=== PATIENT | male | born 1950 | race Caucasian/White ===

== ENCOUNTER 2017-05-04 09:13 | Inpatient (IN) ==
--- NOTE | 2017-05-04 09:36 | Emergency Department Note ---
Disposition Clinical Impression: Elevated troponin CKD (chronic kidney disease) Qualifiers: Chronic kidney disease stage: stage 3 (moderate) Qualified Code(s): N18.3 - Chronic kidney disease, stage 3 (moderate) CHF (congestive heart failure) Qualifiers: Congestive heart failure type: unspecified congestive heart failure type Congestive heart failure chronicity: acute on chronic Qualified Code(s): I50.9 - Heart failure, unspecified HTN (hypertension) Qualifiers: Hypertension type: essential hypertension Qualified Code(s): I10 - Essential ( primary) hypertension Disposition: Admitted As Inpatient Condition: Fair General Adult HPI - General Chief complaint: ED Shortness of Breath/Dyspnea Stated complaint: Back Pain/SOB Time Seen by Provider: 05/04/17 09:21 Source: patient Limitations: no limitations Nursing Notes Reviewed: Yes Vital Signs Reviewed: Yes - History of Present Illness HPI Narrative: 66-year-old male presents to the ED complaining of lower back pain and shortness of breath. He states the back pain started this morning all of a sudden. He has a history of COPD patient still smokes 2 packs cigarettes a day. He says he is not short of breath at this moment but was earlier. The oxygen by EMS to breathe a lot better. He is not on home oxygen at this time. He states the back pain as sharp, nonradiating, 7 out of 10 and he has not taken anything for the pain yet. He said he was not doing any heavy lifting, recent falls, or any other trauma. Family states that they believe his pain is due to hip arthritis that is been radiating in the back. He states that he has a hard time moving his legs and has have helped lifting his legs and the car. They also state that the last couple days he has had increase in lower limb swelling. They state that this is new for him. He is complaining of no chest pain, shortness of breath, abdominal pain or headache at this time. Also has history of hepatitis C. Pain Scale: 10 - Related Data Home Medications Medication Instructions Recorded Confirmed No Known Home Drugs 05/04/17 05/04/17 Allergies Allergy/AdvReac Type Severity Reaction Status Date / Time No Known Allergies Allergy Verified 05/04/17 09:14 All systems ED: reviewed and negative except as stated. Constitutional: Denies: fever, chills, weakness, weight change Eyes: Denies: eye pain, eye discharge, vision change Cardiovascular: Denies: chest pain, palpitations, dyspnea on exertion, edema, syncope Respiratory: Reports: dyspnea (Original complaint by EMS but not currently having it now.). Denies: cough, wheezes, hemoptysis, stridor Gastrointestinal: Denies: abdominal pain, nausea, vomiting, diarrhea, constipation, hematemesis, melena, hematochezia Genitourinary: Denies: urgency, dysuria, frequency, hematuria Musculoskeletal: Reports: back pain (Lower). Denies: neck pain, arthralgia, myalgia Integumentary: Denies: rash, abrasion, lesions Neurological: Denies: headache, weakness, numbness, paresthesias, confusion, abnormal gait, vertigo Endocrine: Denies: fatigue Hematological/Lymphatic: Denies: easy bleeding, easy bruising Past Medical History - Past Medical History Attestation: Yes The following information was validated with the patient. Medical history: Reports: COPD, coronary artery disease Psychiatric history: Reports: no psych history - Social History Smoking Status: Current every day smoker Smokeless Tobacco Status: No Alcohol use: Reports: none Drug use: Reports: none Physical Exam - General Limitations: no limitations General appearance: alert, in no apparent distress - Head Head exam: atraumatic, normocephalic, normal inspection - Eye Eye exam: Present: normal appearance, PERRL, EOMI - ENT ENT exam: normal exam, normal oropharynx, mucous membranes moist - Neck Neck exam: Present: normal inspection, full ROM. Absent: tenderness - Chest Chest inspection: Present: normal inspection, symmetric chest wall rise - Respiratory Respiratory exam: Present: wheezes - Expanded Respiratory Exam Location: rales: Left, Right, Lower, rhonchi: Lower, Left, Right - Cardiovascular Cardiovascular exam: Present: regular rate, normal rhythm, normal heart sounds - Abdominal Exam Abdominal exam: Present: soft, Non-Tender. Absent: tenderness, distention, guarding, rebound, rigidity - Expanded Lower Extremity Exam Lower leg exam: Present: swelling - Back Exam Back exam: Present: normal inspection, full ROM. Absent: tenderness (No tenderness on palpation of lower back.), paraspinal tenderness - Neurological Exam Neurological exam: Present: alert, oriented X3 - Psychiatric Psychiatric exam: Present: flat affect - Skin Skin exam: Present: warm, dry, intact, normal color Course Course Narrative: 66-year-old male presented to the ED complaining of lower back pain and lower limb swelling. We will do a cardiac workup along with heart failure workup. We will order an EKG, chest x-ray, BNP, troponin, BMP, CBC, urinalysis. We will give him morphine for pain control and Zofran for nausea. Plan is a right now to find a source of his pain and cause of hypertension. - Reevaluation(s) Reevaluation #1: Reevaluated patient and he states he still has no chest pain. Critical lab came in with troponin of 0.96. And patient is still hypertensive at 180/90. Reevaluation #2: Patient still having no chest pain this time. Blood pressure machine shows 190/ 160 minute blood pressures being done at this time. Currently giving Lasix lower blood pressure. Reevaluation #3: He is having more pain at this time. We will give him 4 mg of morphine at this time. Vital Signs Temperature 98.8 F 05/04/17 09:16 Pulse Rate 100 05/04/17 09:16 Respiratory Rate 18 05/04/17 09:16 Blood Pressure 177/111 05/04/17 09:16 O2 Sat by Pulse Oximetry 94 05/04/17 09:16 Temperature 98.8 F 05/04/17 09:16 Pulse Rate 99 05/04/17 10:59 Respiratory Rate 18 05/04/17 10:59 Blood Pressure 190/160 05/04/17 10:59 O2 Sat by Pulse Oximetry 97 05/04/17 10:59 Oxygen Delivery Oxygen Delivery Nasal Cannula Medical Decision Making - [facility] Narrative Medical decision making narrative: 66-year-old male presents the ED complaining of lower back pain and lower limb swelling. He has a history of hep C, COPD. patient states he has no history of hypertension as this is new for him. These are his hypertension could be due to pain. We will give morphine for pain control. Patient states he is not short of breath at this time after he was given oxygen by EMS on the right in. We will continue to monitor that at this time. After talking with family it seems that his back pain could be due to a radiculopathy in the back or increased arthritis in his hips. I have low suspicion for a AAA. We will do a bedside ultrasound to see/measure the aorta. Her and do a cardiac workup to look for possible heart failure that could be causing his increased shortness of breath and swelling, as well as hypertension. 1011-bedside ultrasound done that showed no signs of enlarged aorta. This decreases our suspicion even more for AAA. 1035- spoke with patient about possibly being admitted he is okay with this plan. Repeated blood pressure which showed 190/160 while he was sitting down. He has noticed the blood pressure to be worse when he is sitting compared to when he is laying down. She was still complaining of no chest pain at this time Lasix is being given at this time to lower the blood pressure. Currently doing a manual blood pressure. Spoke with Dr. Robles bowel admitting he has for me to contact cardiology a call was made to cardiology at this time. He is going to come down and see the patient. 1117-spoke with Dr. Robles in the department. In he is wanting cardiology to look at them. He is okay to admit the patient. Manual blood pressure done was shown to be 170/100. We will give patient 5 mg of hydralazine to help lower that. 1134-spoke with Dr. Farnsworth in cardiology and he recommended that we do admit the patient do an echo and trending the enzymes this time as he is currently having no chest pain.. Dr. Robles and saw the patient and the admission is currently in progress at this time patient is being admitted right now. Chest X-Ray 05/04/17 09:27 IMPRESSION: Abnormal bilateral perihilar opacities extending into the lower lobes, left greater than right. The findings are suggestive of an atypical bronchopneumonia. Follow-up imaging is recommended after treatment to ensure resolution. D/ / 05/04/2017 11:07:15 Garrett Castro MD / beth Interpreting Provider: Garrett Castro MD - Medical Records Medical records reviewed: Yes I reviewed the patient's medical records. - Lab Data Lab results reviewed: Yes I reviewed the patient's lab results. Result diagrams: 05/04/17 10:00 05/04/17 10:00 - Radiology Data Radiology results reviewed: Yes I reviewed the patient's radiology results. - EKG Data EKG #1 EKG attestation: Yes I reviewed and interpreted this EKG. EKG results narrative: EKG done at 940 and reviewed by me. EKG shows a regular sinus rhythm with different P-wave morphologies. Along with PACs. There is signs of left heart strain. Rate of 90. R1 63 QRS 89 QTc 441 with normal axis. No acute ST changes. No T wave morphologies. No signs of block. No signs of WPW or [place]. There is no old old EKGs to compare with at this time. EKG shows normal: sinus rhythm Rate: normal Rhythm: NSR, PAC's [place]/QRS: normal When compared to previous EKG there are: previous EKG unavailable Interpretation: no acute changes Attestation Statement - Attestation Attestation: I examined this patient and my medical decision-making was reviewed with the Resident Physician. I agree with the documented findings, disposition and treatment plan as described except to the extent set forth below. 66-year-old male presents ED because of dyspnea and back pain. He has a long history of COPD and a remote history of coronary artery disease with prior stent placements. However, he cannot be more detailed about anything regarding the coronary stents. He presented to his primary care physician today due to the worsening dyspnea and need to get back on his psychiatric medications. At that time he was also complaining of low back pain with radiation to his right hip. He was found to be hypertensive and sensitivity. He denies any chest pain. He does report exertional dyspnea and mild orthopnea. No fevers or chills. No productive cough. No abdominal pain. No vomiting or diarrhea. Denies bowel or bladder bladder incontinence. No recent trauma Patient is talkative in no apparent distress. Very flat affect. Oropharynx is clear mucous members moist. Neck is supple. Trachea midline. No JVD. Chest with inspiratory rales in both bases. Cardiac exam distant heart tones, regular with occasional ectopy. Chest wall nontender. Abdomen soft and nontender. Flanks nontender. Lower back with some very mild right paraspinal muscular tenderness that partially reproduces his presenting pain. Lower extremities with 2+ pitting edema. EKG with LVH and repolarization abnormalities with T-wave inversions in lateral wall. Chest x-ray was normal cardiac silhouette but bilateral pulmonary edema. Troponin elevated to 0.96. BNP >5000 Blood pressure remained elevated. He was given IV morphine for his pain but blood pressure remained high. He was given IV Lasix along with 5 mg of IV hydralazine. Case was discussed with cardiology on-call and they will see him in consultation. He is admitted to the hospitalist in stable condition for further evaluation treatment. The high probability of a clinically significant, sudden or life threatening deterioration of the [Cardiopulmonary] system(s) required my full and direct attention, intervention and personal management. The aggregate critical care time was [30] minutes. This time is in addition to time spent performing reported procedures but includes the following: [x] Data Review and interpretation [x] Patient assessment and monitoring of vital signs [x] Documentation [x] Medication orders and management
[2017-05-04] MEDS ORDERED: Ondansetron 4 MG/2 ML VIAL IVP ONE (09:41)
[2017-05-04] MEDS ORDERED: *HR* Morphine 2 MG/ML SYRINGE IVP ONE ×2 (09:41→11:37)
[2017-05-04 10:06] LABS: Eosinophils % 0.2 %; Hemoglobin 12.8 g/dL (12.9-16.9); Immature Granulocytes % 0.3 % (0-4); Lymphocytes % 18.7 %; Mean Corpuscular HGB Conc 31.2 g/dL (31.6-35.5); Mean Corpuscular Hemoglobin 26.6 pg (28.0-33.3); Mean Corpuscular Volume 85.1 fL (83.0-100.0); Mean Platelet Volume 9.5 fL (9.4-12.4); Monocytes % 10.5 %; Platelet Count 293 K/mcL (140-400); Red Blood Count 4.82 M/mcL (4.19-5.50); Red Cell Distribution Width 16.9 % (11.5-14.5); Segmented Neutrophils % 69.9 %
[2017-05-04 10:07] LABS: Basophils # 0.1 K/mcL (0.0-0.2); Basophils % 0.4 %; Lymphocytes # 2.1 K/mcL (0.6-4.6); Monocytes # 1.2 K/mcL (0.0-1.3); Neutrophils # 7.8 K/mcL (1.6-8.9); Nucleated Red Blood Cells 0.2 /100 WBC (0)
[2017-05-04 10:19] LABS: Magnesium 2.1 mg/dL (1.6-2.6); Potassium 4.4 mEq/L (3.5-4.5)
[2017-05-04] MEDS ORDERED: Furosemide 40 MG/4 ML VIAL IVP ONE (10:29)
[2017-05-04] MEDS ORDERED: Aspirin 81 MG TAB.CHEW PO ONE (10:29)
[2017-05-04] MEDS ORDERED: *HR* Morphine 2 MG/ML SYRINGE IVP PRN (11:30)
[2017-05-04] MEDS ORDERED: Naloxone 0.4 MG/ML INJ IVP PRN (11:30)
[2017-05-04] MEDS ORDERED: Ondansetron 4 MG/2 ML VIAL IVP PRN (11:30)
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
[2017-05-04] MEDS ORDERED: Ipratropium/Albuterol Neb 3 ML IH PRN (12:08)
[2017-05-04 12:18] LABS: Bilirubin,Urine Negative (Negative); Blood,Urine Trace (Negative); Clarity,Urine Clear (Clear); Color,Urine Yellow (Yellow); Glucose,Urine (UA) Normal (Normal); Ketones,Urine Negative (Negative); Leukocyte Esterase,Urine Negative (Negative); Nitrite,Urine Negative (Negative); Protein,Urine 100 mg/dL (Neg-Trace); Specific Gravity,Urine 1.011 (1.010-1.025); Urobilinogen,Urine Normal (Normal)
[2017-05-04 12:21] LABS: Bacteria,Urine None Seen per hpf (None-Few); Hyaline Casts,Urine None Seen per lpf (None-Few); RBC,Urine 0-3 per hpf (0-3); Squamous Epithelial Cell,Urine Few per lpf (None-Few); WBC,Urine 0-3 per hpf (0-3)
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
[2017-05-04] MEDS ORDERED: Perflutren Lipid Microsphere 1.3 ML in 0.9 % Sodium Chloride 8.7 ML IVP ONE (14:17)
[2017-05-04] MEDS ORDERED: Perflutren Lipid Microsphere 2 ML VIAL ONE (14:20)
[2017-05-04] MEDS ORDERED: *HR* Heparin 5,000 UNIT/ML VIAL IVP PRN (15:05)
[2017-05-04] MEDS ORDERED: *HR* Heparin 5,000 UNIT/ML VIAL IVP ONE (15:05)
[2017-05-04] MEDS: amLODIPine 5 MG TABLET PO SCH (15:23)
[2017-05-04 17:04] LABS: Hematocrit 41.5 % (37.5-50.1); Hemoglobin 12.8 g/dL (12.9-16.9); Mean Corpuscular HGB Conc 30.8 g/dL (31.6-35.5); Mean Corpuscular Hemoglobin 26.4 pg (28.0-33.3); Mean Corpuscular Volume 85.6 fL (83.0-100.0); Mean Platelet Volume 9.9 fL (9.4-12.4); Platelet Count 309 K/mcL (140-400); Red Blood Count 4.85 M/mcL (4.19-5.50); Red Cell Distribution Width 16.9 % (11.5-14.5)
[2017-05-04 17:10] LABS: INR 1.4; Prothrombin Time 15.2 Seconds (9.4-12.1)
[2017-05-04 17:12] LABS: Activated Partial Thrombo Time 27.1 Seconds (26.0-36.0)
[2017-05-04] MEDS: Heparin 25,000 UNIT/500 ML D5W 25,000 UNIT/500 ML MLS IVC SCH (17:34)
[2017-05-04] MEDS ORDERED: *HR* Heparin 5,000 UNIT/ML VIAL SQ SCH (18:00)
[2017-05-04] MEDS: Furosemide 40 MG/4 ML VIAL IVP SCH (21:01)
[2017-05-05 01:44] LABS: Basophils # 0.1 K/mcL (0.0-0.2); Basophils % 0.4 %; Eosinophils # 0.2 K/mcL (0.0-0.6); Hematocrit 38.3 % (37.5-50.1); Hemoglobin 12.3 g/dL (12.9-16.9); Immature Granulocytes % 0.4 % (0-4); Lymphocytes # 1.7 K/mcL (0.6-4.6); Lymphocytes % 10.5 %; Mean Corpuscular HGB Conc 32.1 g/dL (31.6-35.5); Mean Corpuscular Hemoglobin 27.2 pg (28.0-33.3); Mean Corpuscular Volume 84.5 fL (83.0-100.0); Mean Platelet Volume 10.6 fL (9.4-12.4); Monocytes # 1.8 K/mcL (0.0-1.3); Monocytes % 11.3 %; Platelet Count 290 K/mcL (140-400); Red Blood Count 4.53 M/mcL (4.19-5.50); Red Cell Distribution Width 16.7 % (11.5-14.5); Segmented Neutrophils % 76.4 %
[2017-05-05 01:57] LABS: Albumin 2.6 g/dL (3.5-5.0); Albumin/Globulin Ratio 0.9 (1.1-2.2); Bilirubin,Direct 0.7 mg/dL (0.0-0.5); Bilirubin,Indirect 0.6 mg/dL (0.0-1.2); Bilirubin,Total 1.3 mg/dL (0.2-1.2); Calcium 8.6 mg/dL (8.6-10.8); Chol/HDL Ratio 4.2 (0-4.9); Globulin 2.9 g/dL (2.4-3.5); Magnesium 1.7 mg/dL (1.6-2.6); Potassium 3.4 mEq/L (3.5-4.5); Total Protein 5.5 g/dL (6.0-8.3)
[2017-05-05 02:48] LABS: Hepatitis A Antibody IgM Nonreactive (Nonreactive); Hepatitis B Core IgM Nonreactive (Nonreactive); Hepatitis B Surface Antigen Nonreactive (Nonreactive)
[2017-05-05 02:50] LABS: Hepatitis C Virus Antibody Reactive (Nonreactive)
[2017-05-05] MEDS: *HR* Heparin 5,000 UNIT/ML VIAL IVP PRN (07:43)
[2017-05-05] MEDS: amLODIPine 5 MG TABLET PO SCH (07:44)
[2017-05-05] MEDS: Furosemide 40 MG/4 ML VIAL IVP SCH (07:44)
[2017-05-05] MEDS: Aspirin Enteric Coated 81 MG Tablet PO SCH (07:44)
--- NOTE | 2017-05-05 09:27 | Cardiology Progress Note ---
Date of Encounter: 05/05/17 Time of Encounter: 08:40 Assessment and Plan (1) Elevated troponin Current Visit: Yes Status: Acute Adynamic troponin elevation in the setting of PNA, renal insufficiency, and severely elevated HTN. NSTEMI type I vs. II, demand ischemia. He is pain free upon exam, denies hx of chest/jaw/neck or arm discomfort. Continue asa and betablocker. Statin on hold due to abnormal LFTs. No indication for cardiac rehab at this time. TTE demonstrated reduction in LV function, EF 30-35%, prior 60% in 2012. Recommend ischemic evaluation; will wait until closer to euvolemic and kidney function improves. (2) CHF (congestive heart failure) Current Visit: Yes Status: Acute LVEF 30-35% with LV thrombus per TTE, unknown chronicity as patient has not followed with physician in several years. Reports acute onset of LE prior to admission, pt. is poor historian. Has not followed with physician in "years." BNP >5000; CXR demonstrates atypical bronchopneumonia. Severe HTN upon presentation. Last TTE per [facility] records: 2011 LVEF 60-65%, normal RV structure and function, no significant valvular dysfunction, no PH, normal wall motion. Suspect ischemic in etiology; recommend LHC prior to discharge when kidney function stable and pt. is euvolemic. Patient is agreeable to proceed with LHC when able. No ACEi/ARB due to CKD. Continue asa and betablocker. Continue to be volume overload upon exam, on 5lpm O2. LE edema has improved. Cumulative I&O: -3795mL. Strict I&O's, daily weights, Na/fluid restriction diet. Qualifiers: Congestive heart failure type: unspecified congestive heart failure type Congestive heart failure chronicity: acute on chronic Qualified Code(s): I50.9 - Heart failure, unspecified (3) HTN (hypertension) Current Visit: Yes Status: Chronic Betablocker and norvasc started. Blood pressures stable. Renal insufficiency noted, SCr 1.60, unclear baseline. Last available lab results from 2010 demonstrate normal kidney function. (SCr 0.85). Qualifiers: Hypertension type: essential hypertension Qualified Code(s): I10 - Essential (primary) hypertension (4) LV (left ventricular) mural thrombus Current Visit: Yes Status: Acute Suspected LV thrombus per TTE. Continue IV heparin gtt. Discussion w patient/family: The assessment and plan as outlined above was discussed with the patient and/or family members who expressed understanding and agreement. All questions were answered. Thank you for involving us in the care of your patient. Please call with any questions. The patient will be discussed and reviewed with Dr. Farnsworth; changes to be made accordingly. Subjective Principal diagnosis: CHF, elevated troponin Interval history: Seen and examined. Alert and oriented x2. Drowsy this AM upon exam. No complaints. Objective Vital Signs, Last 4 Hours Temp Pulse Resp BP Pulse Ox 05/05/17 07:00 99.7 F H 82 18 120/72 92 General: Conversant HEENT: Atraumatic, Normocephaly Cardiac: Reg Rate and Rhythm, Normal S1 and S2 Lungs: Other (bibasilar rales) Neuro: Alert and responsive Abdomen: Soft Skin: No rashes noted on visualized skin Musculoskeletal: No Chest Wall Tenderness Extremities: Other Results 05/05/17 01:04 05/05/17 01:04 Lab Results 05/05/17 05/05/17 01:04 06:28 WBC Hgb Hct Plt Count INR APTT 51.9 H Sodium 139 Potassium 3.4 L D Chloride 102 Carbon Dioxide 29 BUN 27 H Creatinine 1.70 H Glucose 105 H Calcium 8.6 Magnesium 1.7 Total Bilirubin 1.3 H AST 47 H ALT 115 H Alkaline Phosphatase 140 H Troponin I Active Medications Acetaminophen (Tylenol) 650 mg PO Q6HR PRN PRN Reason: Mild Pain (1-3) Stop: 11/03/17 11:31 Hydrocodone Bitart/Acetaminophen ([place] 5-325 Mg) 1 tab PO Q4HR PRN PRN Reason: Moderate Pain (4-6) Stop: 11/03/17 11:31 Albuterol/Ipratropium (Duoneb) 3 ml IH [id number] PRN; Protocol PRN Reason: Shortness Of Breath/Wheezing Stop: 11/03/17 12:09 Amlodipine Besylate (Norvasc) 10 mg PO DAILY MONTSE PRN Reason: Protocol Stop: 11/03/17 11:46 Last Admin: 05/05/17 07:44 Dose: 10 mg Aspirin (Aspirin Ec) 81 mg PO DAILY [facility] Stop: 11/04/17 09:01 Last Admin: 05/05/17 07:44 Dose: 81 mg Carvedilol (Coreg) 6.25 mg PO BIDWM MONTSE PRN Reason: Protocol Stop: 11/03/17 17:01 Last Admin: 05/05/17 07:45 Dose: 6.25 mg Furosemide (Lasix) 40 mg IVP BIDDIURETIC MONTSE Stop: 11/04/17 17:01 Heparin Sodium (Porcine) (Heparin) 6,700 unit 70 unit/kg (6700 unit) IVP Q6HR PRN PRN Reason: SEE COMMENTS Stop: 11/03/17 15:06 Heparin Sodium (Porcine) (Heparin) 3,300 unit 35 unit/kg (3300 unit) IVP Q6H PRN PRN Reason: SEE COMMENTS Stop: 11/03/17 15:06 Last Admin: 05/05/17 07:43 Dose: 3,300 unit Hydralazine HCl (Hydralazine) 10 mg IVP Q6HR PRN PRN Reason: Hypertension Stop: 11/03/17 11:42 Heparin Sodium/Dextrose (Heparin 25,000 Unit/500 Ml D5w) 25,000 unit in 500 mls @ 26.671 mls/hr IVC .[id number] MONTSE; 14 UNIT/KG/HR PRN Reason: Protocol Stop: 11/03/17 15:16 Last Titration: 05/05/17 07:39 Dose: 15.53 unit/kg/hr, 29.6 mls/hr Morphine Sulfate (Morphine Sulfate) 2 mg IVP Q4HR PRN PRN Reason: Severe Pain (7-10) Stop: 11/03/17 11:31 Naloxone HCl (Narcan) 0.4 mg IVP Q2MIN PRN PRN Reason: Opioid Reversal Stop: 11/03/17 11:31 Ondansetron HCl (Zofran) 4 mg IVP Q8HR PRN PRN Reason: Nausea And Vomiting Stop: 11/03/17 11:31 - Imaging and Cardiology Echo: report reviewed Other Results: 12 hour tele: avg HR=85 SR. NSVT, 4 beat max. - EKG Interpretation EKG results cardiology: personally reviewed Consult Discharge Plan - Plan Referrals: Yaneth Mcghee MD [Primary Care Provider] -
--- NOTE | 2017-05-05 10:15 | Internal Med Progress Note ---
Date of Encounter: 05/05/17 Time of Encounter: 10:13 - Assessment and plan (1) Sepsis Current Visit: Yes Status: Acute Assessment and plan: Secondary to community-acquired pneumonia, unknown infectious agent Chest x-ray shows possible atypical bronchopneumonia with bilateral opacities and vascular congestion Start Levaquin IV, order blood cultures, lactic acid and sputum culture Qualifiers: Sepsis type: sepsis due to unspecified organism Qualified Code(s): A41.9 - Sepsis, unspecified organism (2) Community acquired pneumonia Current Visit: Yes Status: Acute (3) CHF (congestive heart failure) Current Visit: Yes Status: Acute Assessment and plan: New onset Acute systolic CHF exacerbation Continue Lasix IV, TTE demonstrated reduction in LV function, EF 30-35% ( was 60% in 2012). Also shows a left ventricular calcified thrombus Cardiology to schedule a left heart catheterization when the patient is more stable, euvolemic and the pneumonia is controlled Qualifiers: Congestive heart failure type: systolic Congestive heart failure chronicity : acute on chronic Qualified Code(s): I50.23 - Acute on chronic systolic ( congestive) heart failure (4) CKD (chronic kidney disease) Current Visit: Yes Status: Acute Qualifiers: Chronic kidney disease stage: stage 3 (moderate) Qualified Code(s): N18.3 - Chronic kidney disease, stage 3 (moderate) (5) COPD (chronic obstructive pulmonary disease) Current Visit: Yes Status: Acute Assessment and plan: Stable, no exacerbation Qualifiers: COPD type: emphysema Emphysema type: other Qualified Code(s): J43.8 - Other emphysema (6) Elevated troponin Current Visit: Yes Status: Acute Assessment and plan: Non-STEMI versus demand ischemia Continue heparin drip, aspirin, carvedilol, start Lipitor LHC when more stable (7) HTN (hypertension) Current Visit: Yes Status: Chronic Qualifiers: Hypertension type: essential hypertension Qualified Code(s): I10 - Essential (primary) hypertension (8) Tobacco abuse Current Visit: Yes Status: Acute Assessment and plan: Smoking cessation counseling. Nicotine patch (9) LV (left ventricular) mural thrombus Current Visit: Yes Status: Acute Assessment and plan: Calcified left ventricular thrombus, cardiology recommendations appreciated (10) Hepatitis C Current Visit: Yes Status: Acute Qualifiers: Viral hepatitis chronicity: chronic Hepatic coma status: without hepatic coma Qualified Code(s): B18.2 - Chronic viral hepatitis C - Subjective Interval history: The patient feels very short of breath, denies any chest pain at the moment. Has been bringing up yellowish phlegm worsening since yesterday. Had a mild fever of 99.7, complaining of chills, no dysuria, no diarrhea no abdominal pain - Constitutional Vitals: Temp Pulse Resp BP Pulse Ox 99.7 F H 82 18 120/72 92 05/05/17 07:00 05/05/17 07:00 05/05/17 07:00 05/05/17 07:00 05/05/17 07:00 General appearance: Present: cachectic, A&O X 3, no acute distress - Head Head exam: Present: atraumatic, normocephalic - Eye Eye exam: Present: PERRL, conjuntiva pink, sclera anicteric Pupils: Present: PERRL - Neck Neck exam general surgery: Present: supple, trachea midline. Absent: lymphadenopathy - Respiratory Respiratory exam: Present: decreased breath sounds, CTAB, rales (Very diminished breath sounds with some minimal fine bibasilar crackles). Absent: accessory muscle use, rhonchi, wheezes - Cardiovascular Cardiovascular exam: Present: RRR, +S1, +S2. Absent: diastolic murmur, gallop, rubs, systolic murmur - GI/Abdominal GI/Abdominal exam: Present: normal bowel sounds, soft, no peritoneal signs. Absent: distended, tenderness - Extremities Exam Extremities exam: Present: warm, radial pulses palpable and symetrical. Absent : calf tenderness, cyanotic, pedal edema - Neurological Exam Neurological exam: Present: CN II-XII intact, oriented X3, no focal deficits. Absent: pronater drift, facial droop, speech deficit - Skin Skin exam: Present: dry, intact Internal Medicine: Result - Labs CBC & Chem 7: 05/05/17 01:04 05/05/17 01:04 Labs: Short CBC 05/04/17 05/05/17 Range/Units 15:57 01:04 WBC 10.8 15.7 H (4.3-11.1) K/mcL Hgb 12.8 L 12.3 L (12.9-16.9) g/dL Hct 41.5 38.3 (37.5-50.1) % Plt Count 309 290 (140-400) K/mcL Neutrophils # 12.0 H (1.6-8.9) K/mcL BMP 05/05/17 01:04 Sodium 139 Potassium 3.4 L D Chloride 102 Carbon Dioxide 29 BUN 27 H Creatinine 1.70 H Glucose 105 H Calcium 8.6 Cardiac Enzymes 05/04/17 05/05/17 Range/Units 15:57 01:04 Troponin I 0.83 H* 0.88 H* (0-0.03) ng/mL Liver Function 05/05/17 Range/Units 01:04 Total Bilirubin 1.3 H (0.2-1.2) mg/dL Direct Bilirubin 0.7 H (0.0-0.5) mg/dL AST 47 H (5-34) Units/L ALT 115 H (0-55) Units/L Alkaline Phosphatase 140 H (38-126) Units/L Albumin 2.6 L (3.5-5.0) g/dL - ABG Interpretation ABG results: PT/INR, D-dimer PT 15.2 Seconds (9.4-12.1) H 05/04/17 15:57 Consult Discharge Plan - Plan Referrals: Yaneth Mcghee MD [Primary Care Provider] -
[2017-05-05] MEDS ORDERED: Levofloxacin 750 MG/150 ML 750 MG/150 ML BAG IVPB SCH (11:00)
[2017-05-05] MEDS: Nicotine 21 MG PATCH.TD24 TD SCH (11:03)
[2017-05-05] MEDS: Heparin 25,000 UNIT/500 ML D5W 25,000 UNIT/500 ML MLS IVC SCH (12:23)
--- NOTE | 2017-05-05 14:46 | Electrocardiograph Report ---
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
[2017-05-05] MEDS ORDERED: Furosemide 40 MG/4 ML VIAL IVP SCH (17:00)
[2017-05-05] MEDS ORDERED: *HR* LORazepam 2 MG/ML VIAL IVP PRN ×2 (19:02→19:20)
[2017-05-06 05:27] LABS: Hemoglobin 12.4 g/dL (12.9-16.9); Mean Corpuscular Hemoglobin 26.3 pg (28.0-33.3); Mean Corpuscular Volume 84.9 fL (83.0-100.0); Mean Platelet Volume 10.5 fL (9.4-12.4); Platelet Count 318 K/mcL (140-400); Red Blood Count 4.71 M/mcL (4.19-5.50); Red Cell Distribution Width 16.5 % (11.5-14.5)
[2017-05-06 05:43] LABS: Calcium 8.4 mg/dL (8.6-10.8)
[2017-05-06] MEDS: Heparin 25,000 UNIT/500 ML D5W 25,000 UNIT/500 ML MLS IVC SCH (06:19)
[2017-05-06] MEDS: Nicotine 21 MG PATCH.TD24 TD SCH (08:56)
[2017-05-06] MEDS ORDERED: Furosemide 40 MG/4 ML VIAL IVP SCH (09:00)
--- NOTE | 2017-05-06 09:03 | Internal Med Progress Note ---
Date of Encounter: 05/06/17 Time of Encounter: 09:01 - Assessment and plan (1) Sepsis Current Visit: Yes Status: Acute Assessment and plan: Secondary to community-acquired pneumonia, unknown infectious agent Chest x-ray showed possible atypical bronchopneumonia with bilateral opacities and vascular congestion Continue Levaquin IV day 2, order blood cultures, lactic acid improving sputum culture pending Qualifiers: Sepsis type: sepsis due to unspecified organism Qualified Code(s): A41.9 - Sepsis, unspecified organism (2) Elevated troponin Current Visit: Yes Status: Acute Assessment and plan: Non-STEMI versus demand ischemia Continue heparin drip, aspirin, carvedilol, start Lipitor LHC when more stable (3) Community acquired pneumonia Current Visit: Yes Status: Acute (4) CHF (congestive heart failure) Current Visit: Yes Status: Acute Assessment and plan: New onset Acute systolic CHF exacerbation Continue Lasix IV, TTE demonstrated reduction in LV function, EF 30-35% ( was 60% in 2012). Also shows a left ventricular calcified thrombus Cardiology to schedule a left heart catheterization when the patient is more stable, euvolemic and his pneumonia is controlled Qualifiers: Congestive heart failure type: systolic Congestive heart failure chronicity : acute on chronic Qualified Code(s): I50.23 - Acute on chronic systolic ( congestive) heart failure (5) CKD (chronic kidney disease) Current Visit: Yes Status: Acute Qualifiers: Chronic kidney disease stage: stage 3 (moderate) Qualified Code(s): N18.3 - Chronic kidney disease, stage 3 (moderate) (6) COPD (chronic obstructive pulmonary disease) Current Visit: Yes Status: Acute Assessment and plan: Stable, no exacerbation Qualifiers: COPD type: emphysema Emphysema type: other Qualified Code(s): J43.8 - Other emphysema (7) HTN (hypertension) Current Visit: Yes Status: Chronic Qualifiers: Hypertension type: essential hypertension Qualified Code(s): I10 - Essential (primary) hypertension (8) Tobacco abuse Current Visit: Yes Status: Acute (9) LV (left ventricular) mural thrombus Current Visit: Yes Status: Acute Assessment and plan: Calcified left ventricular thrombus, cardiology recommendations appreciated (10) Hepatitis C Current Visit: Yes Status: Acute Qualifiers: Viral hepatitis chronicity: chronic Hepatic coma status: without hepatic coma Qualified Code(s): B18.2 - Chronic viral hepatitis C - Subjective Interval history: Less short of breath, denied any chest pain at the moment. Has been bringing up less yellowish phlegm. Had a mild fever of 99.9, complaining of chills, no dysuria, no diarrhea no abdominal pain - Constitutional Vitals: Temp Pulse Resp BP Pulse Ox 99.9 F H 100 26 170/93 92 05/06/17 07:30 05/06/17 07:30 05/06/17 07:30 05/06/17 07:30 05/06/17 07:30 General appearance: Present: cachectic, A&O X 2, no acute distress - Head Head exam: Present: atraumatic, normocephalic - Eye Eye exam: Present: PERRL, conjuntiva pink, sclera anicteric Pupils: Present: PERRL - Neck Neck exam general surgery: Present: supple, trachea midline. Absent: lymphadenopathy - Respiratory Respiratory exam: Present: decreased breath sounds, CTAB, rales (Fine bibasilar crackles). Absent: accessory muscle use, rhonchi, wheezes - Cardiovascular Cardiovascular exam: Present: RRR, +S1, +S2. Absent: diastolic murmur, gallop, rubs, systolic murmur - GI/Abdominal GI/Abdominal exam: Present: normal bowel sounds, soft, no peritoneal signs. Absent: distended, tenderness - Extremities Exam Extremities exam: Present: pedal edema (+2 pitting edema in both lower extremities), warm, radial pulses palpable and symetrical. Absent: calf tenderness, cyanotic - Neurological Exam Neurological exam: Present: CN II-XII intact, no focal deficits. Absent: oriented X3, pronater drift, facial droop, speech deficit - Skin Skin exam: Present: dry, intact Internal Medicine: Result - Labs CBC & Chem 7: 05/06/17 04:14 05/06/17 04:14 Labs: Short CBC 05/06/17 Range/Units 04:14 WBC 12.4 H (4.3-11.1) K/mcL Hgb 12.4 L (12.9-16.9) g/dL Hct 40.0 (37.5-50.1) % Plt Count 318 (140-400) K/mcL BMP 05/06/17 04:14 Sodium 134 L Potassium 4.0 Chloride 96 L Carbon Dioxide 30 H BUN 25 Creatinine 1.47 H Glucose 104 H Calcium 8.4 L - ABG Interpretation ABG results: PT/INR, D-dimer PT 15.2 Seconds (9.4-12.1) H 05/04/17 15:57 Consult Discharge Plan - Plan Referrals: Yaneth Mcghee MD [Primary Care Provider] - 05/12/17 3:15 pm
--- NOTE | 2017-05-06 09:55 | Cardiology Progress Note ---
Date of Encounter: 05/06/17 Time of Encounter: 08:15 Assessment and Plan (1) Elevated troponin Current Visit: Yes Status: Acute Adynamic troponin elevation in the setting of PNA, renal insufficiency, and severely elevated HTN. NSTEMI type I vs. II, demand ischemia. He is pain free upon exam, denies hx of chest/jaw/neck or arm discomfort. Continue asa and betablocker. Statin on hold due to abnormal LFTs. No indication for cardiac rehab at this time. TTE demonstrated reduction in LV function, EF 30-35%, prior 60% in 2012. Recommend C with possible PCI; however, patient is only alert to self this AM and is confused. He is unable to consent for procedure; no family or POA. Emergency contact is listed as "friend." Discussed with Dr. Farnsworth, will place social work consult today. (2) CHF (congestive heart failure) Current Visit: Yes Status: Acute LVEF 30-35% with LV thrombus per TTE, unknown chronicity as patient has not followed with physician in several years. Reports acute onset of LE prior to admission, pt. is poor historian. Has not followed with physician in "years." BNP >5000; CXR demonstrates atypical bronchopneumonia. Severe HTN upon presentation. Last TTE per [facility] records: 2011 LVEF 60-65%, normal RV structure and function, no significant valvular dysfunction, no PH, normal wall motion. Suspect ischemic in etiology; recommend LHC prior to discharge when kidney function stable and pt. is euvolemic. Confused upon exam this AM; social work consult as patient is unable to consent. No ACEi/ARB due to CKD. Continue asa and betablocker. Continue to be volume overload upon exam, on 5lpm O2. LE edema has improved. Cumulative I&O: -3256 mL. LE (bilateral toes) appear more dusky today, BLE arterial studies ordered. Strict I&O's, daily weights, Na/fluid restriction diet. Qualifiers: Congestive heart failure type: systolic Congestive heart failure chronicity : acute on chronic Qualified Code(s): I50.23 - Acute on chronic systolic ( congestive) heart failure (3) HTN (hypertension) Current Visit: Yes Status: Chronic Betablocker and norvasc started. Blood pressures stable. Renal insufficiency noted upon presentation, SCr 1.60, unclear baseline. Last available lab results from 2010 demonstrate normal kidney function. (SCr 0.85). Kidney function improved today, continue to monitor. Qualifiers: Hypertension type: essential hypertension Qualified Code(s): I10 - Essential (primary) hypertension (4) LV (left ventricular) mural thrombus Current Visit: Yes Status: Acute Suspected LV thrombus per TTE. Continue IV heparin gtt. Will need transition to Coumadin, goal INR 2-3, by discharge. Discussion w patient/family: The assessment and plan as outlined above was discussed with the patient and/or family members who expressed understanding and agreement. All questions were answered. Thank you for involving us in the care of your patient. Please call with any questions. The patient will be discussed and reviewed with Dr. Farnsworth; changes to be made accordingly. Subjective Principal diagnosis: CHF, elevated troponin Interval history: Seen and examined. Patient is more confused this AM--alert to self only. No family members at bedside. Per bedside RN emergency contact is "friend." Objective Vital Signs, Last 4 Hours Temp Pulse Resp BP Pulse Ox 05/06/17 07:30 99.9 F H 100 26 170/93 92 General: Conversant, Other (conversational dyspnea) HEENT: Atraumatic, Normocephaly Cardiac: Reg Rate and Rhythm, Normal S1 and S2 Lungs: Other (Coarse breath sounds throughout) Neuro: Alert and responsive (alert to self only) Abdomen: Soft Extremities: Other (+2 edema to knees, dusky toes bilaterally) Results 05/06/17 04:14 05/06/17 04:14 Lab Results 05/05/17 05/05/17 05/06/17 13:18 19:25 04:14 WBC 12.4 H Hgb 12.4 L Hct 40.0 Plt Count 318 APTT 79.4 H D 65.2 H Sodium Potassium Chloride Carbon Dioxide BUN Creatinine Glucose Calcium 05/06/17 04:14 WBC Hgb Hct Plt Count APTT Sodium 134 L Potassium 4.0 Chloride 96 L Carbon Dioxide 30 H BUN 25 Creatinine 1.47 H Glucose 104 H Calcium 8.4 L - Imaging and Cardiology Chest Xray: report reviewed Echo: report reviewed Other Results: 12 hour tele: avg HR=91 SR with frequent PACs. NSVT, max 4 beats. - EKG Interpretation EKG results cardiology: personally reviewed Consult Discharge Plan - Plan Referrals: Yaneth Mcghee MD [Primary Care Provider] - 05/12/17 3:15 pm
[2017-05-06] MEDS: Furosemide 40 MG/4 ML VIAL IVP SCH ×2 (11:07→17:15)
[2017-05-06] MEDS: Aspirin Enteric Coated 81 MG Tablet PO SCH (11:20)
[2017-05-06] MEDS: Acetaminophen 325 MG TABLET PO PRN (11:20)
[2017-05-06] MEDS: amLODIPine 5 MG TABLET PO SCH (11:20)
[2017-05-06] MEDS ORDERED: Levofloxacin 750 MG/150 ML 750 MG/150 ML BAG IVPB SCH (14:00)
--- NOTE | 2017-05-06 16:06 | Electrocardiograph Report ---
[place] [id number] Test Date: 2017-05-06 Pat Name: Yovany Carrera Department: 112 Room: 2A Gender: M Funeral Assistant: : 1950 Requested By: Justin Briceño Order Number: [id number] Reading MD: Amy Bingham Measurements Intervals [place] Rate: 0 P: [place]: 0 QRS: 0 QRSD: 0 T: 0 QT: 0 QTc: 0 Interpretive Statements NORMAL SINUS RHYTHM FREQUENT ATRIAL ECTOPY - POSSIBLY A MULTIFOCAL ATRIAL RHYTHM VOLTAGE CRITERIA FOR LVH NONSPECIFIC ST ABNORMALITIES Electronically Signed On 05-06-2017 16:05:15 EDT by Amy Bingham
[2017-05-06] MEDS: MethylPREDNISolone 40 MG/ML VIAL IVP SCH ×2 (17:15→19:24)
[2017-05-06] MEDS: Levofloxacin 500 MG/100 ML 500 MG/100 ML BAG IVPB SCH (17:18)
[2017-05-07] MEDS: Heparin 25,000 UNIT/500 ML D5W 25,000 UNIT/500 ML MLS IVC SCH ×2 (00:36→16:46)
[2017-05-07] MEDS: MethylPREDNISolone 40 MG/ML VIAL IVP SCH ×4 (00:37→23:37)
[2017-05-07 06:03] LABS: Hematocrit 36.7 % (37.5-50.1); Hemoglobin 11.9 g/dL (12.9-16.9); Mean Corpuscular HGB Conc 32.4 g/dL (31.6-35.5); Mean Corpuscular Hemoglobin 26.8 pg (28.0-33.3); Mean Corpuscular Volume 82.7 fL (83.0-100.0); Platelet Count 305 K/mcL (140-400); Red Blood Count 4.44 M/mcL (4.19-5.50); Red Cell Distribution Width 16.5 % (11.5-14.5)
[2017-05-07 06:22] LABS: Calcium 8.4 mg/dL (8.6-10.8); Potassium 3.4 mEq/L (3.5-4.5)
[2017-05-07] MEDS: amLODIPine 5 MG TABLET PO SCH (09:33)
[2017-05-07] MEDS: Aspirin Enteric Coated 81 MG Tablet PO SCH (09:33)
[2017-05-07] MEDS: Nicotine 21 MG PATCH.TD24 TD SCH (09:33)
[2017-05-07] MEDS: Furosemide 40 MG/4 ML VIAL IVP SCH (09:34)
--- NOTE | 2017-05-07 10:14 | Internal Med Progress Note ---
Date of Encounter: 05/07/17 Time of Encounter: 10:12 - Assessment and plan (1) Sepsis Current Visit: Yes Status: Acute Assessment and plan: Acute COPD exacerbation due to sepsis Secondary to community-acquired pneumonia , unknown infectious agent Sepsis present upon admission Chest x-ray showed possible atypical bronchopneumonia with bilateral opacities and vascular congestion Continue Solu-Medrol Continue Levaquin IV day 3, blood cultures showed no growth, lactic acid improved Qualifiers: Sepsis type: sepsis due to unspecified organism Qualified Code(s): A41.9 - Sepsis, unspecified organism (2) Elevated troponin Current Visit: Yes Status: Acute Assessment and plan: Possible Non-STEMI Consider demand ischemia Continue heparin drip, aspirin, carvedilol, start Lipitor Cardiology to perform LHC when able to obtain consent from next of kin (3) Community acquired pneumonia Current Visit: Yes Status: Acute (4) CHF (congestive heart failure) Current Visit: Yes Status: Acute Assessment and plan: New onset Acute systolic CHF exacerbation Continue Lasix IV, decreased dose down to 40 mrem IV daily TTE demonstrated reduction in LV function, EF 30-35% ( was 60% in 2012). Also shows a left ventricular calcified thrombus Cardiology to schedule a left heart catheterization when the patient is more stable, euvolemic and his pneumonia is controlled Qualifiers: Congestive heart failure type: systolic Congestive heart failure chronicity : acute on chronic Qualified Code(s): I50.23 - Acute on chronic systolic ( congestive) heart failure (5) CKD (chronic kidney disease) Current Visit: Yes Status: Acute Qualifiers: Chronic kidney disease stage: stage 3 (moderate) Qualified Code(s): N18.3 - Chronic kidney disease, stage 3 (moderate) (6) COPD (chronic obstructive pulmonary disease) Current Visit: Yes Status: Acute Assessment and plan: Stable, was started on Solu-Medrol Qualifiers: COPD type: emphysema Emphysema type: other Qualified Code(s): J43.8 - Other emphysema (7) HTN (hypertension) Current Visit: Yes Status: Chronic Qualifiers: Hypertension type: essential hypertension Qualified Code(s): I10 - Essential (primary) hypertension (8) Tobacco abuse Current Visit: Yes Status: Acute Assessment and plan: Smoking cessation counseling. Nicotine patch (9) LV (left ventricular) mural thrombus Current Visit: Yes Status: Acute Assessment and plan: Calcified left ventricular thrombus, cardiology recommendations appreciated (10) Hepatitis C Current Visit: Yes Status: Acute Qualifiers: Viral hepatitis chronicity: chronic Hepatic coma status: without hepatic coma Qualified Code(s): B18.2 - Chronic viral hepatitis C - Subjective Interval history: Denied any chest pain or shortness of breath at the moment. Has been bringing up less yellowish phlegm. No fevers last night, complaining of chills, no dysuria, no diarrhea no abdominal pain. Had a fever of 102.6 on 05/06/2017 - Constitutional Vitals: Temp Pulse Resp BP Pulse Ox 98.3 F 70 22 145/72 92 05/07/17 07:43 05/07/17 07:43 05/07/17 07:43 05/07/17 07:43 05/07/17 07:43 General appearance: Present: cachectic, A&O X 2, no acute distress - Head Head exam: Present: atraumatic, normocephalic - Eye Eye exam: Present: PERRL, conjuntiva pink, sclera anicteric Pupils: Present: PERRL - Neck Neck exam general surgery: Present: supple, trachea midline. Absent: lymphadenopathy - Respiratory Respiratory exam: Present: decreased breath sounds, CTAB, wheezes (Wheezing has improved considerably). Absent: accessory muscle use, rales, rhonchi - Cardiovascular Cardiovascular exam: Present: RRR, +S1, +S2. Absent: diastolic murmur, gallop, rubs, systolic murmur - GI/Abdominal GI/Abdominal exam: Present: normal bowel sounds, soft, no peritoneal signs. Absent: distended, tenderness - Extremities Exam Extremities exam: Present: warm, radial pulses palpable and symetrical. Absent : calf tenderness, cyanotic, pedal edema - Neurological Exam Neurological exam: Present: CN II-XII intact, no focal deficits. Absent: oriented X3, pronater drift, facial droop, speech deficit - Skin Skin exam: Present: dry, intact Additional comments: De León catheter in place Internal Medicine: Result - Labs CBC & Chem 7: 05/07/17 04:55 05/07/17 04:55 Labs: Short CBC 05/07/17 Range/Units 04:55 WBC 5.9 D (4.3-11.1) K/mcL Hgb 11.9 L (12.9-16.9) g/dL Hct 36.7 L (37.5-50.1) % Plt Count 305 (140-400) K/mcL BMP 05/07/17 04:55 Sodium 133 L Potassium 3.4 L Chloride 92 L Carbon Dioxide 31 H BUN 26 Creatinine 1.47 H Glucose 206 H Calcium 8.4 L - ABG Interpretation ABG results: PT/INR, D-dimer PT 15.2 Seconds (9.4-12.1) H 05/04/17 15:57 Consult Discharge Plan - Plan Referrals: Yaneth Mcghee MD [Primary Care Provider] - 05/12/17 3:15 pm
--- NOTE | 2017-05-07 13:46 | Cardiology Progress Note ---
Date of Encounter: 05/07/17 Time of Encounter: 12:45 Assessment and Plan (1) CHF (congestive heart failure) Current Visit: Yes Status: Acute Per cardiology: -LVEF 30-35% with LV thrombus per TTE, unknown chronicity as patient has not followed with physician in several years. -Reports acute onset of LE prior to admission, pt. is poor historian. -Has not followed with physician in "years." BNP >5000; CXR demonstrates atypical bronchopneumonia. Severe HTN upon presentation. -Last TTE per [facility] records: 2011 LVEF 60-65%, normal RV structure and function, no significant valvular dysfunction, no PH, normal wall motion. -Suspect ischemic in etiology; recommend LHC prior to discharge when kidney function stable and pt. is euvolemic. Confused, social work consult as patient is unable to consent. -Per review of social work professor note, patient has mother who is living. services host is attempting to contact family for consent. -No ACEi/ARB due to CKD. Continue asa and betablocker. Continue to be volume overload upon exam, on 2lpm O2. LE edema has improved. Cumulative I&O: -7200 mL. -Strict I&O's, daily weights, Na/fluid restriction diet. -Will continue diuresis. -Will continue to monitor. Qualifiers: Congestive heart failure type: systolic Congestive heart failure chronicity : acute on chronic Qualified Code(s): I50.23 - Acute on chronic systolic ( congestive) heart failure (2) Elevated troponin Current Visit: Yes Status: Acute Per cardiology: -Adynamic troponin elevation in the setting of PNA, renal insufficiency, and severely elevated HTN. NSTEMI type I vs. II, demand ischemia. -He is pain free upon exam, denies hx of chest/jaw/neck or arm discomfort. -Continue asa and betablocker. Statin on hold due to abnormal LFTs. -No indication for cardiac rehab at this time. -TTE demonstrated reduction in LV function, EF 30-35%, prior 60% in 2011. -Recommend LHC with possible PCI; however, patient is alert to person and place and is confused. He is unable to consent for procedure; no family or POA. services host on board to assist in consenting. (3) LV (left ventricular) mural thrombus Current Visit: Yes Status: Acute Per cardiology: -Suspected LV thrombus per TTE. -Continue IV heparin gtt. -Will need transition to Coumadin, goal INR 2-3, by discharge. (4) HTN (hypertension) Current Visit: Yes Status: Acute Per cardiology: -KNown hypertension. -On beta didier. -BPs 130s systolic. -Will continue to monitor. Qualifiers: Hypertension type: essential hypertension Qualified Code(s): I10 - Essential (primary) hypertension Discussion w patient/family: The assessment and plan as outlined above was discussed with the patient who expressed understanding and agreement. All questions were answered. Thank you for involving us in the care of your patient. Please call with any questions. Discussed and reviewed with . Subjective Principal diagnosis: CHF, elevated troponin Interval history: Patient awake today. Oriented to person and place. Patient denies chest pain. Patient states breathing is better today. Objective Vital Signs, Last 4 Hours Temp Pulse Resp BP Pulse Ox 05/07/17 11:51 99.1 F 62 18 135/55 95 General: Conversant, No Apparent Distress HEENT: Atraumatic, Normocephaly, Mucus Membranes Moist Neck: No JVD, Normal carotid pulses Cardiac: Reg Rate and Rhythm, Normal S1 and S2, No Murmur Lungs: Normal Breath Sounds, No Wheeze, Rales, Rhonchi Neuro: Alert and responsive, Other (Oriented to person and place ) Abdomen: Soft, Non-Tender Skin: No rashes noted on visualized skin Musculoskeletal: No Chest Wall Tenderness Extremities: No Clubbing, No Cyanosis, Normal Pulses, Other (1+ pitting edema to right lower extremity. Moderate edema to left lower extremity, non-pitting. ) Results 05/07/17 04:55 05/07/17 04:55 Lab Results Active Medications Acetaminophen (Tylenol) 650 mg PO Q6HR PRN PRN Reason: Mild Pain (1-3) Stop: 11/03/17 11:31 Last Admin: 05/06/17 11:20 Dose: 650 mg Hydrocodone Bitart/Acetaminophen ([place] 5-325 Mg) 1 tab PO Q4HR PRN PRN Reason: Moderate Pain (4-6) Stop: 11/03/17 11:31 Albuterol/Ipratropium (Duoneb) 3 ml IH [id number] PRN; Protocol PRN Reason: Shortness Of Breath/Wheezing Stop: 11/03/17 12:09 Amlodipine Besylate (Norvasc) 10 mg PO DAILY MONTSE PRN Reason: Protocol Stop: 11/03/17 11:46 Last Admin: 05/07/17 09:33 Dose: 10 mg Aspirin (Aspirin Ec) 81 mg PO DAILY [facility] Stop: 11/04/17 09:01 Last Admin: 05/07/17 09:33 Dose: 81 mg Atorvastatin Calcium (Lipitor) 80 mg PO HS [facility]ONTSE Stop: 11/04/17 10:16 Last Admin: 05/06/17 19:59 Dose: 80 mg Carvedilol (Coreg) 6.25 mg PO BIDWM [facility]SE PRN Reason: Protocol Stop: 11/03/17 17:01 Last Admin: 05/07/17 09:33 Dose: 6.25 mg Furosemide (Lasix) 40 mg IVP DAILY [facility] Stop: 11/07/17 09:01 Heparin Sodium (Porcine) (Heparin) 6,700 unit 70 unit/kg (6700 unit) IVP Q6HR PRN PRN Reason: SEE COMMENTS Stop: 11/03/17 15:06 Heparin Sodium (Porcine) (Heparin) 3,300 unit 35 unit/kg (3300 unit) IVP Q6H PRN PRN Reason: SEE COMMENTS Stop: 11/03/17 15:06 Last Admin: 05/05/17 07:43 Dose: 3,300 unit Hydralazine HCl (Hydralazine) 10 mg IVP Q6HR PRN PRN Reason: Hypertension Stop: 11/03/17 11:42 Last Admin: 05/06/17 08:53 Dose: 10 mg Heparin Sodium/Dextrose (Heparin 25,000 Unit/500 Ml D5w) 25,000 unit in 500 mls @ 26.671 mls/hr IVC .[id number] MONTSE; 14 UNIT/KG/HR PRN Reason: Protocol Stop: 11/03/17 15:16 Last Admin: 05/07/17 00:36 Dose: 15.53 unit/kg/hr, 29.586 mls/hr Levofloxacin/Dextrose (Levaquin Premix 500mg/100ml) 500 mg in 100 mls @ 100 mls /hr IVPB Q24H MONTSE PRN Reason: Protocol Stop: 11/05/17 14:16 Last Admin: 05/07/17 13:49 Dose: 100 mls/hr Lorazepam (Ativan) 1 mg IVP Q3H PRN PRN Reason: Agitation Stop: 11/04/17 19:21 Methylprednisolone (Solu-Medrol) 40 mg IVP Q8HR [facility]ONT[facility] Stop: 11/05/17 14:19 Last Admin: 05/07/17 09:33 Dose: 40 mg Morphine Sulfate (Morphine Sulfate) 2 mg IVP Q4HR PRN PRN Reason: Severe Pain (7-10) Stop: 11/03/17 11:31 Naloxone HCl (Narcan) 0.4 mg IVP Q2MIN PRN PRN Reason: Opioid Reversal Stop: 11/03/17 11:31 Nicotine (Nicoderm) 21 mg TD DAILY [facility] PRN Reason: Protocol Stop: 11/04/17 10:16 Last Admin: 05/07/17 09:33 Dose: 21 mg Ondansetron HCl (Zofran) 4 mg IVP Q8HR PRN PRN Reason: Nausea And Vomiting Stop: 11/03/17 11:31 Laboratory Tests 05/04/17 05/04/17 05/05/17 10:00 15:57 01:04 Hgb Potassium Creatinine Troponin I 0.96 H* 0.83 H* 0.88 H* 05/07/17 05/07/17 04:55 04:55 Hgb 11.9 L Potassium 3.4 L Creatinine 1.47 H Troponin I - Imaging and Cardiology Chest Xray: report reviewed Echo: report reviewed - EKG Interpretation EKG results cardiology: other (Telemetry reviewed with average HR 85, sinus rhythm. Frequent PVCS and frequent PACs noted.) Consult Discharge Plan - Plan Referrals: Yaneth Mcghee MD [Primary Care Provider] - 05/12/17 3:15 pm
[2017-05-07] MEDS: Levofloxacin 500 MG/100 ML 500 MG/100 ML BAG IVPB SCH (13:49)
[2017-05-07 19:57] LABS: Heparin anti-factor XA UFH 0.68 IU/mL (0.30-0.70)
[2017-05-08 03:54] LABS: BUN/Creatinine Ratio 24 (6-26); Blood Urea Nitrogen 30 mg/dL (8-26); Carbon Dioxide 36 mEq/L (19-29); Chloride 94 mEq/L (98-109); Glucose 131 mg/dL (70-99); Osmolality,Calculated 290 (280-300); Potassium 3.2 mEq/L (3.5-4.5); Sodium 136 mEq/L (136-145); eGFR For African Americans > 60 (> 60); eGFR For Non-African Americans 58 (> 60)
[2017-05-08 04:08] LABS: Activated Partial Thrombo Time 122.5 Seconds (26.0-36.0)
[2017-05-08 04:09] LABS: Heparin anti-factor XA UFH 0.53 IU/mL (0.30-0.70)
--- NOTE | 2017-05-08 07:49 | Internal Med Progress Note ---
Date of Encounter: 05/08/17 Time of Encounter: 07:47 - Assessment and plan (1) Sepsis Current Visit: Yes Status: Acute Assessment and plan: Acute COPD exacerbation due to sepsis Secondary to community-acquired pneumonia , unknown infectious agent Sepsis present upon admission Chest x-ray showed possible atypical bronchopneumonia with bilateral opacities and vascular congestion Continue Solu-Medrol Continue Levaquin IV day 4, blood cultures showed no growth, lactic acid improved Qualifiers: Sepsis type: sepsis due to unspecified organism Qualified Code(s): A41.9 - Sepsis, unspecified organism (2) Elevated troponin Current Visit: Yes Status: Acute Assessment and plan: Possible Non-STEMI Consider demand ischemia Continue heparin drip, aspirin, carvedilol, start Lipitor Cardiology to perform LHC when able to obtain consent from next of kin (3) Community acquired pneumonia Current Visit: Yes Status: Acute (4) CHF (congestive heart failure) Current Visit: Yes Status: Acute Assessment and plan: New onset Acute systolic CHF exacerbation Continue Lasix IV, decreased dose down to 40 mg po daily TTE demonstrated reduction in LV function, EF 30-35% ( was 60% in 2012). Also shows a left ventricular calcified thrombus Cardiology to schedule a left heart catheterization when the patient is more stable, euvolemic and his pneumonia is controlled Qualifiers: Congestive heart failure type: systolic Congestive heart failure chronicity : acute on chronic Qualified Code(s): I50.23 - Acute on chronic systolic ( congestive) heart failure (5) CKD (chronic kidney disease) Current Visit: Yes Status: Acute Qualifiers: Chronic kidney disease stage: stage 3 (moderate) Qualified Code(s): N18.3 - Chronic kidney disease, stage 3 (moderate) (6) COPD (chronic obstructive pulmonary disease) Current Visit: Yes Status: Acute Assessment and plan: Stable, on Solu-Medrol Qualifiers: COPD type: emphysema Emphysema type: other Qualified Code(s): J43.8 - Other emphysema (7) HTN (hypertension) Current Visit: Yes Status: Chronic Qualifiers: Hypertension type: essential hypertension Qualified Code(s): I10 - Essential (primary) hypertension (8) Tobacco abuse Current Visit: Yes Status: Acute Assessment and plan: Smoking cessation counseling. Nicotine patch (9) LV (left ventricular) mural thrombus Current Visit: Yes Status: Acute Assessment and plan: Calcified left ventricular thrombus, cardiology recommended to continue heparin and transition to coumadin when possible goal INR2-3 (10) Hepatitis C Current Visit: Yes Status: Acute Qualifiers: Viral hepatitis chronicity: chronic Hepatic coma status: without hepatic coma Qualified Code(s): B18.2 - Chronic viral hepatitis C - Subjective Interval history: Somnolent. Denied any chest pain or shortness of breath at the moment. Has been bringing up less phlegm. No fevers last night, complaining of chills, no dysuria, no diarrhea no abdominal pain. Had a fever of 102.6 on 05/06/2017 - Constitutional Vitals: Temp Pulse Resp BP Pulse Ox 97.9 F 70 16 132/47 94 05/08/17 04:41 05/08/17 04:41 05/08/17 04:41 05/08/17 04:41 05/08/17 04:41 General appearance: Present: cachectic, A&O X 2, no acute distress Exam: General appearance: Present: cachectic, A&O X 2, no acute distress - Head Head exam: Present: atraumatic, normocephalic - Eye Eye exam: Present: PERRL, conjuntiva pink, sclera anicteric Pupils: Present: PERRL - Neck Neck exam general surgery: Present: supple, trachea midline. Absent: lymphadenopathy - Respiratory Respiratory exam: Present: decreased breath sounds, CTAB, wheezes (Wheezing has improved considerably). Absent: accessory muscle use, rales, rhonchi - Cardiovascular Cardiovascular exam: Present: RRR, +S1, +S2. Absent: diastolic murmur, gallop, rubs, systolic murmur - GI/Abdominal GI/Abdominal exam: Present: normal bowel sounds, soft, no peritoneal signs. Absent: distended, tenderness - Extremities Exam Extremities exam: Present: warm, radial pulses palpable and symetrical. Absent : calf tenderness, cyanotic, pedal edema - Neurological Exam Neurological exam: Present: CN II-XII intact, no focal deficits. Absent: oriented X3, pronater drift, facial droop, speech deficit - Skin Skin exam: Present: dry, intact Internal Medicine: Result - Labs CBC & Chem 7: 05/07/17 04:55 05/08/17 02:49 Labs: BMP 05/08/17 02:49 Sodium 136 Potassium 3.2 L Chloride 94 L Carbon Dioxide 36 H BUN 30 H Creatinine 1.26 H Glucose 131 H Calcium 8.0 L - ABG Interpretation ABG results: PT/INR, D-dimer PT 15.2 Seconds (9.4-12.1) H 05/04/17 15:57 Consult Discharge Plan - Plan Referrals: Yaneth Mcghee MD [Primary Care Provider] - 05/12/17 3:15 pm
[2017-05-08] MEDS: Aspirin Enteric Coated 81 MG Tablet PO SCH (08:46)
[2017-05-08] MEDS: Furosemide 40 MG TABLET PO SCH (08:47)
[2017-05-08] MEDS: MethylPREDNISolone 40 MG/ML VIAL IVP SCH ×2 (08:47→16:52)
[2017-05-08] MEDS: Nicotine 21 MG PATCH.TD24 TD SCH (08:47)
[2017-05-08] MEDS: amLODIPine 5 MG TABLET PO SCH (08:47)
[2017-05-08] MEDS ORDERED: Furosemide 40 MG/4 ML VIAL IVP SCH (09:00)
--- NOTE | 2017-05-08 09:15 | Cardiology Progress Note ---
Date of Encounter: 05/08/17 Time of Encounter: 08:30 Assessment and Plan (1) CHF (congestive heart failure) Current Visit: Yes Status: Acute Per cardiology: -LVEF 30-35% with LV thrombus per TTE, unknown chronicity as patient has not followed with physician in several years. -Reports acute onset of LE prior to admission, pt. is poor historian. -Has not followed with physician in "years." BNP >5000; CXR demonstrates atypical bronchopneumonia. Severe HTN upon presentation. -Last TTE per [facility] records: 2011 LVEF 60-65%, normal RV structure and function, no significant valvular dysfunction, no PH, normal wall motion. -Suspect ischemic in etiology; recommend LHC prior to discharge when kidney function stable and pt. is euvolemic. Confused, social work consult as patient is unable to consent. -Per review of social professionals note, patient has mother who is living. front services agent is attempting to contact family for consent. -No ACEi/ARB due to CKD. Continue asa and betablocker. Continue to be volume overload upon exam, on 2lpm O2. LE edema has improved. Cumulative I&O: -8304. -Strict I&O's, daily weights, Na/fluid restriction diet. -Lasix switched po today. -K 3.2 today, being replaced by primary service -Will continue to monitor. Qualifiers: Congestive heart failure type: systolic Congestive heart failure chronicity : acute on chronic Qualified Code(s): I50.23 - Acute on chronic systolic ( congestive) heart failure (2) Elevated troponin Current Visit: Yes Status: Acute Per cardiology: -Adynamic troponin elevation in the setting of PNA, renal insufficiency, and severely elevated HTN. NSTEMI type I vs. II, demand ischemia. -He is pain free upon exam, denies hx of chest/jaw/neck or arm discomfort. -Continue asa and betablocker. Statin on hold due to abnormal LFTs. -No indication for cardiac rehab at this time. -TTE demonstrated reduction in LV function, EF 30-35%, prior 60% in 2011. -Recommend LHC with possible PCI; however, patient is alert to person and place and is confused. He is unable to consent for procedure; no family or POA. front services agent on board to assist in consenting. -Will make NPO after midnight for possible LHC pending ability to consent patient. (3) LV (left ventricular) mural thrombus Current Visit: Yes Status: Acute Per cardiology: -Suspected LV thrombus per TTE. -Continue IV heparin gtt. -Will need transition to Coumadin, goal INR 2-3, by discharge. -Will start coumadin after LHC. (4) HTN (hypertension) Current Visit: Yes Status: Acute Per cardiology: -KNown hypertension. -On beta didier. -BPs 130s systolic. -Will continue to monitor. Qualifiers: Hypertension type: essential hypertension Qualified Code(s): I10 - Essential (primary) hypertension Discussion w patient/family: The assessment and plan as outlined above was discussed with the patient who expressed understanding and agreement. All questions were answered. Thank you for involving us in the care of your patient. Please call with any questions. Discussed and reviewed with . Subjective Principal diagnosis: CHF, elevated troponin Interval history: Patient awake today. Oriented to person and place. Patient denies chest pain. Patient states breathing is better today. Patient more withdrawn today and not as talkative. Objective Vital Signs, Last 4 Hours Temp Pulse Resp BP Pulse Ox 05/08/17 08:58 90 05/08/17 07:54 97.6 F 71 17 152/79 90 General: Conversant, No Apparent Distress HEENT: Atraumatic, Normocephaly, Mucus Membranes Moist Neck: No JVD, Normal carotid pulses Cardiac: Reg Rate and Rhythm, Normal S1 and S2, No Murmur Lungs: Normal Breath Sounds, No Wheeze, Rales, Rhonchi Neuro: Alert and responsive, No focal deficits noted Abdomen: Soft, Non-Tender Skin: No rashes noted on visualized skin Musculoskeletal: No Chest Wall Tenderness Extremities: No Clubbing, No Cyanosis, Normal Pulses, Other (Mild bilateral pedal edema. ) Results 05/07/17 04:55 05/08/17 02:49 Lab Results Active Medications Acetaminophen (Tylenol) 650 mg PO Q6HR PRN PRN Reason: Mild Pain (1-3) Stop: 11/03/17 11:31 Last Admin: 05/06/17 11:20 Dose: 650 mg Hydrocodone Bitart/Acetaminophen ([place] 5-325 Mg) 1 tab PO Q4HR PRN PRN Reason: Moderate Pain (4-6) Stop: 11/03/17 11:31 Albuterol/Ipratropium (Duoneb) 3 ml IH [id number] PRN; Protocol PRN Reason: Shortness Of Breath/Wheezing Stop: 11/03/17 12:09 Amlodipine Besylate (Norvasc) 10 mg PO DAILY [facility] PRN Reason: Protocol Stop: 11/03/17 11:46 Last Admin: 05/08/17 08:47 Dose: 10 mg Aspirin (Aspirin Ec) 81 mg PO DAILY [facility] Stop: 11/04/17 09:01 Last Admin: 05/08/17 08:46 Dose: 81 mg Atorvastatin Calcium (Lipitor) 80 mg PO HS MONTSE Stop: 11/04/17 10:16 Last Admin: 05/07/17 20:07 Dose: 80 mg Carvedilol (Coreg) 6.25 mg PO BIDWM [facility]SE PRN Reason: Protocol Stop: 11/03/17 17:01 Last Admin: 05/08/17 08:47 Dose: 6.25 mg Furosemide (Lasix) 40 mg PO DAILY [facility] Stop: 11/07/17 09:01 Last Admin: 05/08/17 08:47 Dose: 40 mg Heparin Sodium (Porcine) (Heparin) 6,700 unit 70 unit/kg (6700 unit) IVP Q6HR PRN PRN Reason: SEE COMMENTS Stop: 11/03/17 15:06 Heparin Sodium (Porcine) (Heparin) 3,300 unit 35 unit/kg (3300 unit) IVP Q6H PRN PRN Reason: SEE COMMENTS Stop: 11/03/17 15:06 Last Admin: 05/05/17 07:43 Dose: 3,300 unit Hydralazine HCl (Hydralazine) 10 mg IVP Q6HR PRN PRN Reason: Hypertension Stop: 11/03/17 11:42 Last Admin: 05/06/17 08:53 Dose: 10 mg Heparin Sodium/Dextrose (Heparin 25,000 Unit/500 Ml D5w) 25,000 unit in 500 mls @ 26.671 mls/hr IVC .[id number] MONTSE; 14 UNIT/KG/HR PRN Reason: Protocol Stop: 11/03/17 15:16 Last Titration: 05/08/17 05:11 Dose: 10.28 unit/kg/hr, 19.6 mls/hr Levofloxacin/Dextrose (Levaquin Premix 500mg/100ml) 500 mg in 100 mls @ 100 mls /hr IVPB Q24H MONTSE PRN Reason: Protocol Stop: 11/05/17 14:16 Last Admin: 05/07/17 13:49 Dose: 100 mls/hr Lorazepam (Ativan) 1 mg IVP Q3H PRN PRN Reason: Agitation Stop: 11/04/17 19:21 Methylprednisolone (Solu-Medrol) 40 mg IVP Q8HR MONTSE Stop: 11/05/17 14:19 Last Admin: 05/08/17 08:47 Dose: 40 mg Morphine Sulfate (Morphine Sulfate) 2 mg IVP Q4HR PRN PRN Reason: Severe Pain (7-10) Stop: 11/03/17 11:31 Naloxone HCl (Narcan) 0.4 mg IVP Q2MIN PRN PRN Reason: Opioid Reversal Stop: 11/03/17 11:31 Nicotine (Nicoderm) 21 mg TD DAILY [facility] PRN Reason: Protocol Stop: 11/04/17 10:16 Last Admin: 05/08/17 08:47 Dose: 21 mg Ondansetron HCl (Zofran) 4 mg IVP Q8HR PRN PRN Reason: Nausea And Vomiting Stop: 11/03/17 11:31 Potassium Chloride (Potassium Chloride) 10 meq PO DAILY [facility] Stop: 11/07/17 09:01 Last Admin: 05/08/17 08:46 Dose: 10 meq Laboratory Tests 05/08/17 02:49 Potassium 3.2 L Creatinine 1.26 H - Imaging and Cardiology Chest Xray: report reviewed Echo: report reviewed - EKG Interpretation EKG results cardiology: other (Telemetry reviewed with average HR 75, sinus rhythm. PVCS, couplets, and frequent PACs noted.) Consult Discharge Plan - Plan Referrals: Yaneth Mcghee MD [Primary Care Provider] - 05/12/17 3:15 pm
[2017-05-08] MEDS: Levofloxacin 500 MG/100 ML 500 MG/100 ML BAG IVPB SCH (15:23)
[2017-05-08] MEDS: Heparin 25,000 UNIT/500 ML D5W 25,000 UNIT/500 ML MLS IVC SCH (16:52)
[2017-05-09] MEDS: MethylPREDNISolone 40 MG/ML VIAL IVP SCH (00:07)
[2017-05-09 03:58] LABS: Hematocrit 37.8 % (37.5-50.1); Hemoglobin 12.2 g/dL (12.9-16.9); Mean Corpuscular HGB Conc 32.3 g/dL (31.6-35.5); Mean Corpuscular Volume 83.6 fL (83.0-100.0); Platelet Count 336 K/mcL (140-400); Red Blood Count 4.52 M/mcL (4.19-5.50); Red Cell Distribution Width 16.3 % (11.5-14.5)
[2017-05-09 04:09] LABS: BUN/Creatinine Ratio 27 (6-26); Blood Urea Nitrogen 33 mg/dL (8-26); Carbon Dioxide 33 mEq/L (19-29); Chloride 95 mEq/L (98-109); Glucose 119 mg/dL (70-99); Osmolality,Calculated 290 (280-300); Potassium 3.4 mEq/L (3.5-4.5); Sodium 136 mEq/L (136-145); eGFR For African Americans > 60 (> 60); eGFR For Non-African Americans 59 (> 60)
--- NOTE | 2017-05-09 07:42 | Internal Med Progress Note ---
Date of Encounter: 05/09/17 Time of Encounter: 07:40 - Assessment and plan (1) Sepsis Current Visit: Yes Status: Acute Assessment and plan: Acute COPD exacerbation due to sepsis Secondary to community-acquired pneumonia , unknown infectious agent Sepsis present upon admission Chest x-ray showed possible atypical bronchopneumonia with bilateral opacities and vascular congestion stop Solu-Medrol, start prednisone Continue Levaquin IV day 5, blood cultures showed no growth, lactic acid improved Qualifiers: Sepsis type: sepsis due to unspecified organism Qualified Code(s): A41.9 - Sepsis, unspecified organism (2) Elevated troponin Current Visit: Yes Status: Acute Assessment and plan: Possible Non-STEMI Consider demand ischemia Continue heparin drip, aspirin, carvedilol, start Lipitor Cardiology to perform LHC when able to obtain consent from next of kin (3) Community acquired pneumonia Current Visit: Yes Status: Acute (4) CHF (congestive heart failure) Current Visit: Yes Status: Acute Assessment and plan: New onset Acute systolic CHF exacerbation Continue Lasix IV, decreased dose down to 40 mg po daily TTE demonstrated reduction in LV function, EF 30-35% ( was 60% in 2012). Also shows a left ventricular calcified thrombus Cardiology to schedule a left heart catheterization when the patient is more stable, euvolemic and his pneumonia is controlled Qualifiers: Congestive heart failure type: systolic Congestive heart failure chronicity : acute on chronic Qualified Code(s): I50.23 - Acute on chronic systolic ( congestive) heart failure (5) CKD (chronic kidney disease) Current Visit: Yes Status: Acute Qualifiers: Chronic kidney disease stage: stage 3 (moderate) Qualified Code(s): N18.3 - Chronic kidney disease, stage 3 (moderate) (6) COPD (chronic obstructive pulmonary disease) Current Visit: Yes Status: Acute Assessment and plan: Stable, prednisonel Qualifiers: COPD type: emphysema Emphysema type: other Qualified Code(s): J43.8 - Other emphysema (7) HTN (hypertension) Current Visit: Yes Status: Chronic Qualifiers: Hypertension type: essential hypertension Qualified Code(s): I10 - Essential (primary) hypertension (8) Tobacco abuse Current Visit: Yes Status: Acute Assessment and plan: Smoking cessation counseling. Nicotine patch (9) LV (left ventricular) mural thrombus Current Visit: Yes Status: Acute Assessment and plan: Calcified left ventricular thrombus, cardiology recommended to continue heparin and transition to coumadin when possible goal INR2-3 (10) Hepatitis C Current Visit: Yes Status: Acute Qualifiers: Viral hepatitis chronicity: chronic Hepatic coma status: without hepatic coma Qualified Code(s): B18.2 - Chronic viral hepatitis C - Subjective Interval history: Somnolent. Denied chest pain or shortness of breath. Has been bringing up less phlegm. No fevers last night, complaining of chills, no dysuria, no diarrhea no abdominal pain. Had a fever of 102.6 on 05/06/2017 - Constitutional Vitals: Temp Pulse Resp BP Pulse Ox 98.1 F 70 18 156/91 91 05/09/17 07:03 05/09/17 07:03 05/09/17 07:03 05/09/17 07:03 05/09/17 07:03 General appearance: Present: cachectic, A&O X 2, no acute distress Exam: - Head Head exam: Present: atraumatic, normocephalic - Eye Eye exam: Present: PERRL, conjuntiva pink, sclera anicteric Pupils: Present: PERRL - Neck Neck exam general surgery: Present: supple, trachea midline. Absent: lymphadenopathy - Respiratory Respiratory exam: Present: decreased breath sounds, CTAB, wheezes (Wheezing has improved considerably). Absent: accessory muscle use, rales, rhonchi - Cardiovascular Cardiovascular exam: Present: RRR, +S1, +S2. Absent: diastolic murmur, gallop, rubs, systolic murmur - GI/Abdominal GI/Abdominal exam: Present: normal bowel sounds, soft, no peritoneal signs. Absent: distended, tenderness - Extremities Exam Extremities exam: Present: warm, radial pulses palpable and symetrical. Absent : calf tenderness, cyanotic, pedal edema - Neurological Exam Neurological exam: Present: CN II-XII intact, no focal deficits. Absent: oriented X3, pronater drift, facial droop, speech deficit - Skin Skin exam: Present: dry, intact Internal Medicine: Result - Labs CBC & Chem 7: 05/09/17 02:52 05/09/17 02:52 Labs: Short CBC 05/09/17 Range/Units 02:52 WBC 10.6 D (4.3-11.1) K/mcL Hgb 12.2 L (12.9-16.9) g/dL Hct 37.8 (37.5-50.1) % Plt Count 336 (140-400) K/mcL BMP 05/09/17 02:52 Sodium 136 Potassium 3.4 L Chloride 95 L Carbon Dioxide 33 H BUN 33 H Creatinine 1.24 Glucose 119 H Calcium 8.0 L - ABG Interpretation ABG results: PT/INR, D-dimer PT 15.2 Seconds (9.4-12.1) H 05/04/17 15:57 Consult Discharge Plan - Plan Referrals: Yaneth Mcghee MD [Primary Care Provider] - 05/12/17 3:15 pm
[2017-05-09] MEDS: amLODIPine 5 MG TABLET PO SCH (08:23)
[2017-05-09] MEDS: Aspirin Enteric Coated 81 MG Tablet PO SCH (08:23)
[2017-05-09] MEDS: Furosemide 40 MG TABLET PO SCH (08:23)
[2017-05-09] MEDS: predniSONE 20 MG TABLET PO SCH (08:24)
[2017-05-09] MEDS: Nicotine 21 MG PATCH.TD24 TD SCH (08:25)
--- NOTE | 2017-05-09 10:03 | Cardiology Progress Note ---
Date of Encounter: 05/09/17 Time of Encounter: 08:30 Assessment and Plan (1) CHF (congestive heart failure) Current Visit: Yes Status: Acute Per cardiology: -LVEF 30-35% with LV thrombus per TTE, unknown chronicity as patient has not followed with physician in several years. -Reports acute onset of LE edema prior to admission, pt. is poor historian. -Has not followed with physician in "years." BNP >5000; CXR demonstrates atypical bronchopneumonia. Severe HTN upon presentation. -Last TTE per [facility] records: 2011 LVEF 60-65%, normal RV structure and function, no significant valvular dysfunction, no PH, normal wall motion. -Suspect ischemic in etiology; recommend LHC prior to discharge when kidney function stable and pt. is euvolemic. Confused, social work consult as patient is unable to consent. -Per review of social work associate note, patient has mother who is living. financial services consultant is attempting to contact family for consent. -No ACEi/ARB due to CKD. Continue asa and betablocker. Continue to be volume overload upon exam, on 2lpm O2. LE edema has improved. Cumulative I&O: -8304. -Strict I&O's, daily weights, Na/fluid restriction diet. -K 3.4 today, being replaced by primary service -Will await social work associate evaluation today for assistance in consent. -Will continue to monitor. -Of note, yesterday I spoke at length with patient's friend who manages finances , friend states she is not medical POA or gaurdian. States she has been attempting to reach his mother who is in a mcfp. States she has been unsuccessful. Qualifiers: Congestive heart failure type: systolic Congestive heart failure chronicity : acute on chronic Qualified Code(s): I50.23 - Acute on chronic systolic ( congestive) heart failure (2) Elevated troponin Current Visit: Yes Status: Acute Per cardiology: -Adynamic troponin elevation in the setting of PNA, renal insufficiency, and severely elevated HTN. NSTEMI type I vs. II, demand ischemia. -He is pain free upon exam, denies hx of chest/jaw/neck or arm discomfort. -Continue asa and betablocker. Statin on hold due to abnormal LFTs. -No indication for cardiac rehab at this time. -TTE demonstrated reduction in LV function, EF 30-35%, prior 60% in 2012. -Recommend LHC with possible PCI; however, patient is alert to person and is confused. He is unable to consent for procedure; no family or POA. financial services consultant on board to assist in consenting. -Will make NPO after midnight for possible LHC pending ability to consent patient. (3) LV (left ventricular) mural thrombus Current Visit: Yes Status: Acute Per cardiology: -Suspected LV thrombus per TTE. -Continue IV heparin gtt. -Will need transition to Coumadin, goal INR 2-3, by discharge. -Will start coumadin after LHC. (4) HTN (hypertension) Current Visit: Yes Status: Acute Per cardiology: -KNown hypertension. -On beta didier and calcium channel didier. -BPs 150-160s systolic. -Will increase beta didier. -Will continue to monitor. Qualifiers: Hypertension type: essential hypertension Qualified Code(s): I10 - Essential (primary) hypertension Discussion w patient/family: The assessment and plan as outlined above was discussed with the patient who expressed understanding and agreement. All questions were answered. Thank you for involving us in the care of your patient. Please call with any questions. Discussed and reviewed with . Subjective Principal diagnosis: CHF, elevated troponin Interval history: Patient awake today. Oriented to person only. Patient states he thought he was at [facility] and not at the hospital. Patient denies chest pain. Objective Vital Signs, Last 4 Hours Temp Pulse Resp BP Pulse Ox 05/09/17 08:29 94 05/09/17 07:03 98.1 F 70 18 156/91 91 General: Conversant, No Apparent Distress HEENT: Atraumatic, Normocephaly, Mucus Membranes Moist Neck: No JVD, Normal carotid pulses Cardiac: Reg Rate and Rhythm, Normal S1 and S2, No Murmur Lungs: Normal Breath Sounds, No Wheeze, Rales, Rhonchi Neuro: Alert and responsive, No focal deficits noted Abdomen: Soft, Non-Tender Skin: No rashes noted on visualized skin Musculoskeletal: No Chest Wall Tenderness Extremities: No Clubbing, No Cyanosis, No Edema, Normal Pulses Results 05/09/17 02:52 05/09/17 02:52 Lab Results Active Medications Acetaminophen (Tylenol) 650 mg PO Q6HR PRN PRN Reason: Mild Pain (1-3) Stop: 11/03/17 11:31 Last Admin: 05/06/17 11:20 Dose: 650 mg Hydrocodone Bitart/Acetaminophen ([place] 5-325 Mg) 1 tab PO Q4HR PRN PRN Reason: Moderate Pain (4-6) Stop: 11/03/17 11:31 Albuterol/Ipratropium (Duoneb) 3 ml IH [id number] PRN; Protocol PRN Reason: Shortness Of Breath/Wheezing Stop: 11/03/17 12:09 Amlodipine Besylate (Norvasc) 10 mg PO DAILY MONTSE PRN Reason: Protocol Stop: 11/03/17 11:46 Last Admin: 05/09/17 08:23 Dose: 10 mg Aspirin (Aspirin Ec) 81 mg PO DAILY [facility] Stop: 11/04/17 09:01 Last Admin: 05/09/17 08:23 Dose: 81 mg Atorvastatin Calcium (Lipitor) 80 mg PO HS [facility] Stop: 11/04/17 10:16 Last Admin: 05/08/17 20:09 Dose: 80 mg Carvedilol (Coreg) 6.25 mg PO BIDWM MONTSE PRN Reason: Protocol Stop: 11/03/17 17:01 Last Admin: 05/09/17 08:25 Dose: 6.25 mg Furosemide (Lasix) 40 mg PO DAILY [facility] Stop: 11/07/17 09:01 Last Admin: 05/09/17 08:23 Dose: 40 mg Heparin Sodium (Porcine) (Heparin) 6,700 unit 70 unit/kg (6700 unit) IVP Q6HR PRN PRN Reason: SEE COMMENTS Stop: 11/03/17 15:06 Last Admin: 05/08/17 12:20 Dose: 6,700 unit Heparin Sodium (Porcine) (Heparin) 3,300 unit 35 unit/kg (3300 unit) IVP Q6H PRN PRN Reason: SEE COMMENTS Stop: 11/03/17 15:06 Last Admin: 05/05/17 07:43 Dose: 3,300 unit Hydralazine HCl (Hydralazine) 10 mg IVP Q6HR PRN PRN Reason: Hypertension Stop: 11/03/17 11:42 Last Admin: 05/06/17 08:53 Dose: 10 mg Heparin Sodium/Dextrose (Heparin 25,000 Unit/500 Ml D5w) 25,000 unit in 500 mls @ 26.671 mls/hr IVC .[id number] MONTSE; 14 UNIT/KG/HR PRN Reason: Protocol Stop: 11/03/17 15:16 Last Titration: 05/09/17 06:00 Dose: 10.81 unit/kg/hr, 20.6 mls/hr Levofloxacin/Dextrose (Levaquin Premix 500mg/100ml) 500 mg in 100 mls @ 100 mls /hr IVPB Q24H MONTSE PRN Reason: Protocol Stop: 11/05/17 14:16 Last Infusion: 05/08/17 16:53 Dose: Infused Lorazepam (Ativan) 1 mg IVP Q3H PRN PRN Reason: Agitation Stop: 11/04/17 19:21 Morphine Sulfate (Morphine Sulfate) 2 mg IVP Q4HR PRN PRN Reason: Severe Pain (7-10) Stop: 11/03/17 11:31 Naloxone HCl (Narcan) 0.4 mg IVP Q2MIN PRN PRN Reason: Opioid Reversal Stop: 11/03/17 11:31 Nicotine (Nicoderm) 21 mg TD DAILY MONTSE PRN Reason: Protocol Stop: 11/04/17 10:16 Last Admin: 05/09/17 08:25 Dose: 21 mg Ondansetron HCl (Zofran) 4 mg IVP Q8HR PRN PRN Reason: Nausea And Vomiting Stop: 11/03/17 11:31 Potassium Chloride (Potassium Chloride) 10 meq PO DAILY [facility] Stop: 11/07/17 09:01 Last Admin: 05/09/17 08:24 Dose: 10 meq Prednisone (Prednisone) 40 mg PO DAILY [facility] Stop: 11/08/17 09:01 Last Admin: 05/09/17 08:24 Dose: 40 mg Laboratory Tests 05/09/17 05/09/17 02:52 02:52 Hgb 12.2 L Potassium 3.4 L Creatinine 1.24 - Imaging and Cardiology Chest Xray: report reviewed Echo: report reviewed - EKG Interpretation EKG results cardiology: other (Telemetry reviewed with average HR previous 12 hours noted to be 70, sinus rhythm with frequent PVCs and frequent PACs. Couplet PVCS noted.) Consult Discharge Plan - Plan Referrals: Yaneth Mcghee MD [Primary Care Provider] - 05/12/17 3:15 pm
--- NOTE | 2017-05-09 12:15 | Venous Imaging Report ---
LE Venous Duplex Patient Name:Yovany Carrera Order Number:[id number] Procedure Date:05/06/2017 Date:1950ge:66 yrs Gender:Male Location:[facility] Room #: 2A37 [employer] Program Chair:Crystal Neal Referring MD:Justin Briceño MD computer forensic specialist:None Reading MD:Jimmy Melendez MD , FACS Primary Indications:Bilateral leg swelling Secondary Indications: Risk Factors Yes/No Hx of DVT Anticoagulants Hx of Chemotherapy Smoking Current Impressions: Bilateral lower extremity: normal superficial and deep exam. Recommendations: After imaging the patient returned to their room. Findings Prior Study: No prior study available for comparison. Lower Extremity Venous Duplex Side Vein Compress Spontaneous Flow Augment Diameter (cm) Depth (cm) Right Distal Iliac Normal Yes Phasic Yes Right Common Femoral Normal Yes Phasic Yes Right Superficial Femoral Normal Yes Phasic Yes Right Popliteal Normal Yes Phasic Yes Right Posterior Tibial Normal Yes Phasic Yes Right Peroneal Normal Yes Phasic Yes Right Saphenofemoral [place] Normal Yes Phasic Yes Right Great Saphenous Normal Yes Phasic Yes Right Lesser Saphenous Normal Yes Phasic Yes Left Distal Iliac Normal Yes Phasic Yes Left Common Femoral Normal Yes Phasic Yes Left Superficial Femoral Normal Yes Phasic Yes Left Popliteal Normal Yes Phasic Yes Left Posterior Tibial Normal Yes Phasic Yes Left Peroneal Normal Yes Phasic Yes Left Saphenofemoral [place] Normal Yes Phasic Yes Left Great Saphenous Normal Yes Phasic Yes Left Lesser Saphenous Normal Yes Phasic Yes Updated by Jimmy Melendez MD, FACS on 05/09/2017 12:09:27 PM Jimmy Melendez MD electronically signed on 05/09/2017 12:09:54 PM with status of Final
--- NOTE | 2017-05-09 12:19 | Arterial Study Report ---
LE Arterial Physiologic Study Patient Name:Yovany Carrera Order Number:[id number] Procedure Date:05/06/2017 Date:1950ge:66 yrs Gender:Male Lt BP:171 / mmHg Rt.BP:164 / mmHgHeart Rate: Location:[facility] Room #: 2A37 Supervisor Grading:Crystal Neal Referring MD:Justin Briceño MD parent educator:None Reading MD:Jimmy Melendez MD , FACS Primary Indications:Discoloration of toes Risk Factors Yes/No Hx of DVT Anticoagulants Hx of Chemotherapy Smoking Current Impressions: 1) Bilateral lower extremities waveform demonstrates severely diminished hemodynamics. 2) Bilateral Ankle Brachial Index demonstrates moderately occlusive disease. Recommendations: Suggest clinical correlation and Futher evaluation is recommended. Test completed on 05/06/2017 at 4:30:00 pm. Critical findings reported to DONTAE Bruno by phone at 5:00:00 pm on 05/06/2017 by Crystal Neal. Findings LE Arterial Physiologic Exam: PVR: Right: The PVR waveforms are moderately diminished in the right high thigh, right lower thigh and right ankle and severely diminished in the right calf. Left: The PVR waveforms are moderately diminished in the left high thigh and left lower thigh and severely diminished in the left calf and left ankle. Prior Study: No prior study available for comparison. Segmental Pressures Side Location Pressure Index Result Right High Thigh 107 0.63 Moderately Diminished Right Above Knee 98 0.57 Moderately Diminished Right Below Knee 83 0.49 Severely Diminished Right Posterior Tibial 85 0.50 Moderately Diminished Right Dorsalis Pedis 99 0.58 Moderately Diminished Left High Thigh 87 0.51 Moderately Diminished Left Above Knee 86 0.50 Moderately Diminished Left Below Knee 84 0.49 Severely Diminished Left Posterior Tibial 85 0.50 Moderately Diminished Left Dorsalis Pedis 77 0.45 Severely Diminished Ankle Brachial Index Right Systolic Diastolic MARANDA Brachial 164 0.58 Dorsalis Pedis 99 0.58 Posterior Tibial 85 0.50 Left Systolic Diastolic MARANDA Brachial 171 0.50 Dorsalis Pedis 77 0.45 Posterior Tibial 85 0.50 Updated by Jimmy Melendez MD, FACS on 05/09/2017 12:11:58 PM with Status of Final Jimmy Melendez MD electronically signed on 05/09/2017 12:12:26 PM with status of Final
--- NOTE | 2017-05-09 12:43 | Electrocardiograph Report ---
[place] [id number] Test Date: 2017-05-06 Pat Name: Yovany Carrera Department: 112 Room: 2A Gender: M Miller Apprentice: : 1950 Requested By: Justin Briceño Order Number: [id number] Reading MD: Trevor Martinez MD Measurements Intervals [place] Rate: 98 P: [place]: 0 QRS: 44 QRSD: 97 T: 99 QT: 364 QTc: 419 Interpretive Statements ATRIAL FIBRILLATION VOLTAGE CRITERIA FOR LVH Electronically Signed On 05-09-2017 12:42:00 EDT by Trevor Martinez MD
[2017-05-09] MEDS: Levofloxacin 500 MG/100 ML 500 MG/100 ML BAG IVPB SCH (14:47)
[2017-05-10 07:07] LABS: BUN/Creatinine Ratio 25 (6-26); Blood Urea Nitrogen 29 mg/dL (8-26); Calcium 8.6 mg/dL (8.6-10.8); Carbon Dioxide 38 mEq/L (19-29); Chloride 93 mEq/L (98-109); Glucose 121 mg/dL (70-99); Osmolality,Calculated 289 (280-300); Sodium 136 mEq/L (136-145); eGFR For African Americans > 60 (> 60); eGFR For Non-African Americans > 60 (> 60)
[2017-05-10] MEDS: predniSONE 20 MG TABLET PO SCH (08:03)
[2017-05-10] MEDS: Furosemide 40 MG TABLET PO SCH (08:03)
[2017-05-10] MEDS: Nicotine 21 MG PATCH.TD24 TD SCH (08:04)
[2017-05-10] MEDS: Aspirin Enteric Coated 81 MG Tablet PO SCH (08:04)
[2017-05-10] MEDS: Nitroglycerin 0.4 MG TAB.SUBL SL PRN ×2 (08:23→08:34)
--- NOTE | 2017-05-10 10:58 | Cardiology Progress Note ---
Date of Encounter: 05/10/17 Time of Encounter: 10:30 Assessment and Plan (1) CHF (congestive heart failure) Current Visit: Yes Status: Acute Per cardiology: -LVEF 30-35% with LV thrombus per TTE, unknown chronicity as patient has not followed with physician in several years. -Reports acute onset of LE edema prior to admission, pt. is poor historian. -Has not followed with physician in "years." BNP >5000; CXR demonstrates atypical bronchopneumonia. Severe HTN upon presentation. -Last TTE per [facility] records: 2011 LVEF 60-65%, normal RV structure and function, no significant valvular dysfunction, no PH, normal wall motion. -Suspect ischemic in etiology; recommend LHC prior to discharge. Confused, social work consult as patient is unable to consent. -Per review of public health social worker note, emergency guardianship has been filed with court system. -On beta blokcer and richie inhibitor. -Strict I&O's, daily weights, Na/fluid restriction diet. -Will await emergency guardianship in order to obtain consent for LHC. -Recommend psychiatry evaluation. -Will continue to monitor. -Of note, Tuesday, I spoke at length with patient's friend who manages finances, friend states she is not medical POA or gaurdian. States she has been attempting to reach his mother who is in a long term. States she has been unsuccessful. Qualifiers: Congestive heart failure type: systolic Congestive heart failure chronicity : acute on chronic Qualified Code(s): I50.23 - Acute on chronic systolic ( congestive) heart failure (2) Elevated troponin Current Visit: Yes Status: Acute Per cardiology: -Adynamic troponin elevation in the setting of PNA, renal insufficiency, and severely elevated HTN. NSTEMI type I vs. II, demand ischemia. -He is pain free upon exam. -Continue asa and betablocker. Statin on hold due to abnormal LFTs. -No indication for cardiac rehab at this time. -TTE demonstrated reduction in LV function, EF 30-35%, prior 60% in 2011. -On heparin drip. -Of note, upon exam today, patient states he had chest pain this morning, Patient was given nitro. Denies current chest pain. Troponin 0.41, down from 0.88. -Recommend LHC with possible PCI; however, patient is alert to person and place. He is unable to consent for procedure; no family or POA. manager field services on board to assist in consenting. Emergency guardianship paper work has been filed with court system. -Will continue to follow. (3) LV (left ventricular) mural thrombus Current Visit: Yes Status: Acute Per cardiology: -Suspected LV thrombus per TTE. -Continue IV heparin gtt. -Will need transition to Coumadin, goal INR 2-3, by discharge. -Will start coumadin after [facility]. (4) HTN (hypertension) Current Visit: Yes Status: Acute Per cardiology: -KNown hypertension. -On beta didier and calcium channel didier. Richie inhibitor ordered yesterday to start today. -BPs 140-150s systolic. -Will continue to monitor. Qualifiers: Hypertension type: essential hypertension Qualified Code(s): I10 - Essential (primary) hypertension Discussion w patient/family: The assessment and plan as outlined above was discussed with the patient who expressed understanding and agreement. All questions were answered. Thank you for involving us in the care of your patient. Please call with any questions. Discussed and reviewed with . Subjective Principal diagnosis: CHF, elevated troponin Interval history: Patient alert and oriented to person and place. Pateint states he has some chest discomfort earlier. Patient was given nitro. Patient denies current chest pain. Emergency gaurdianship paper work has been filled out by hospitalist. Objective Vital Signs, Last 4 Hours Temp Pulse Resp BP Pulse Ox 05/10/17 10:19 98.2 F 60 18 156/84 92 05/10/17 09:02 60 16 140/80 93 05/10/17 07:27 97.9 F 58 16 186/109 97 General: Conversant, No Apparent Distress HEENT: Atraumatic, Normocephaly, Mucus Membranes Moist Neck: No JVD, Normal carotid pulses Cardiac: Reg Rate and Rhythm, Normal S1 and S2, No Murmur Lungs: Normal Breath Sounds, No Wheeze, Rales, Rhonchi Neuro: Alert and responsive, Other (Oriented to person and place. ) Abdomen: Soft, Non-Tender Skin: No rashes noted on visualized skin Musculoskeletal: No Chest Wall Tenderness Extremities: No Clubbing, No Cyanosis, Normal Pulses, Other (Mild bilateral pedal edema noted. ) Results 05/09/17 02:52 05/10/17 06:06 Lab Results Active Medications Acetaminophen (Tylenol) 650 mg PO Q6HR PRN PRN Reason: Mild Pain (1-3) Stop: 11/03/17 11:31 Last Admin: 05/06/17 11:20 Dose: 650 mg Hydrocodone Bitart/Acetaminophen (Lyons 5-325 Mg) 1 tab PO Q4HR PRN PRN Reason: Moderate Pain (4-6) Stop: 11/03/17 11:31 Albuterol/Ipratropium (Duoneb) 3 ml IH [id number] PRN; Protocol PRN Reason: Shortness Of Breath/Wheezing Stop: 11/03/17 12:09 Aspirin (Aspirin Ec) 81 mg PO DAILY MONSTE Stop: 11/04/17 09:01 Last Admin: 05/10/17 08:04 Dose: 81 mg Atorvastatin Calcium (Lipitor) 80 mg PO HS MONTSE Stop: 11/04/17 10:16 Last Admin: 05/09/17 21:24 Dose: 80 mg Calcium Carbonate (Tums) 1,000 mg PO TID PRN; Protocol PRN Reason: gerd Stop: 11/08/17 21:01 Last Admin: 05/09/17 17:22 Dose: 1,000 mg Carvedilol (Coreg) 12.5 mg PO BIDWM MONTSE PRN Reason: Protocol Stop: 11/08/17 17:01 Last Admin: 05/10/17 08:03 Dose: 12.5 mg Furosemide (Lasix) 40 mg PO DAILY MONTSE Stop: 11/07/17 09:01 Last Admin: 05/10/17 08:03 Dose: 40 mg Heparin Sodium (Porcine) (Heparin) 6,700 unit 70 unit/kg (6700 unit) IVP Q6HR PRN PRN Reason: SEE COMMENTS Stop: 11/03/17 15:06 Last Admin: 05/08/17 12:20 Dose: 6,700 unit Heparin Sodium (Porcine) (Heparin) 3,300 unit 35 unit/kg (3300 unit) IVP Q6H PRN PRN Reason: SEE COMMENTS Stop: 11/03/17 15:06 Last Admin: 05/05/17 07:43 Dose: 3,300 unit Hydralazine HCl (Hydralazine) 10 mg IVP Q6HR PRN PRN Reason: Hypertension Stop: 11/03/17 11:42 Last Admin: 05/06/17 08:53 Dose: 10 mg Heparin Sodium/Dextrose (Heparin 25,000 Unit/500 Ml D5w) 25,000 unit in 500 mls @ 26.671 mls/hr IVC .[id number] MONTSE; 14 UNIT/KG/HR PRN Reason: Protocol Stop: 11/03/17 15:16 Last Titration: 05/09/17 13:27 Dose: 10.81 unit/kg/hr, 20.6 mls/hr Isosorbide Mononitrate (Imdur) 30 mg PO DAILY [facility] Stop: 11/09/17 09:01 Levofloxacin (Levaquin) 500 mg PO Q24H MONTSE PRN Reason: Protocol Stop: 11/09/17 14:01 Lisinopril (Zestril) 10 mg PO DAILY [facility] PRN Reason: Protocol Stop: 11/09/17 09:01 Last Admin: 05/10/17 08:03 Dose: 10 mg Lorazepam (Ativan) 1 mg IVP Q3H PRN PRN Reason: Agitation Stop: 11/04/17 19:21 Morphine Sulfate (Morphine Sulfate) 2 mg IVP Q4HR PRN PRN Reason: Severe Pain (7-10) Stop: 11/03/17 11:31 Naloxone HCl (Narcan) 0.4 mg IVP Q2MIN PRN PRN Reason: Opioid Reversal Stop: 11/03/17 11:31 Nicotine (Nicoderm) 21 mg TD DAILY [facility] PRN Reason: Protocol Stop: 11/04/17 10:16 Last Admin: 05/10/17 08:04 Dose: 21 mg Nitroglycerin (Nitroglycerin) 0.4 mg SL Q5MIN PRN PRN Reason: Chest Pain Stop: 11/09/17 08:16 Last Admin: 05/10/17 08:34 Dose: 0.4 mg Ondansetron HCl (Zofran) 4 mg IVP Q8HR PRN PRN Reason: Nausea And Vomiting Stop: 11/03/17 11:31 Potassium Chloride (Potassium Chloride) 10 meq PO DAILY [facility] Stop: 11/07/17 09:01 Last Admin: 05/10/17 08:03 Dose: 10 meq Prednisone (Prednisone) 40 mg PO DAILY [facility] Stop: 11/08/17 09:01 Last Admin: 05/10/17 08:03 Dose: 40 mg Laboratory Tests 05/04/17 05/04/17 05/05/17 10:00 15:57 01:04 Creatinine Troponin I 0.96 H* 0.83 H* 0.88 H* 05/10/17 05/10/17 06:06 08:35 Creatinine 1.16 Troponin I 0.41 H* - Imaging and Cardiology Chest Xray: report reviewed Echo: report reviewed - EKG Interpretation EKG results cardiology: other (Telemetry reviewed with average HR 68, sinus rhythm. Frequent PVCS, couplets, and 1 4 beat run of non-sustained ventricular tachycardia noted. Frequent PACs noted, 1 4 beat run of atrial tachycardia noted.) Consult Discharge Plan - Plan Referrals: Yaneth Mcghee MD [Primary Care Provider] - 05/12/17 3:15 pm
--- NOTE | 2017-05-10 12:04 | Internal Med Progress Note ---
Date of Encounter: 05/10/17 Time of Encounter: 08:30 - Assessment and plan (1) CHF (congestive heart failure) Current Visit: Yes Status: Acute Assessment and plan: New diagnosis of systolic CHF. Needs C to r/o ischemic process. Appears to be euvolemic today. Continue current management. Qualifiers: Congestive heart failure type: systolic Congestive heart failure chronicity : acute on chronic Qualified Code(s): I50.23 - Acute on chronic systolic ( congestive) heart failure (2) Sepsis Current Visit: Yes Status: Resolved Assessment and plan: Most likely related to pneumonia and/or exac COPD. Sepsis present on admit and has resolved at this time. Qualifiers: Sepsis type: sepsis due to unspecified organism Qualified Code(s): A41.9 - Sepsis, unspecified organism (3) COPD (chronic obstructive pulmonary disease) Current Visit: Yes Status: Acute Assessment and plan: Currently on PO steroids and seems to be improving. Completed course of Levaquin. Qualifiers: COPD type: COPD with acute exacerbation Qualified Code(s): J44.1 - Chronic obstructive pulmonary disease with (acute) exacerbation (4) Community acquired pneumonia Current Visit: Yes Status: Acute Assessment and plan: Has completed course of Levaquin IV. (5) Chronic respiratory failure with hypoxia Current Visit: Yes Status: Chronic Assessment and plan: Oxygen supplementation. (6) Elevated troponin Current Visit: Yes Status: Acute Assessment and plan: NSTEMI versus demand ischemia. Had recurrent chest pain this AM but troponin lower. Continue current management with ASA, statin and heparin awaiting cardiac cath. (7) LV (left ventricular) mural thrombus Current Visit: Yes Status: Acute Assessment and plan: Currently on heparin drip. Will start coumadin when able. (8) HTN (hypertension) Current Visit: Yes Status: Chronic Assessment and plan: Uncontrolled this AM but improved after meds and SL nitroglycerin. Imdur added. Qualifiers: Hypertension type: essential hypertension Qualified Code(s): I10 - Essential (primary) hypertension (9) CKD (chronic kidney disease) Current Visit: Yes Status: Acute Assessment and plan: Renal function has improved since admit. Will recheck tomorrow. Qualifiers: Chronic kidney disease stage: stage 3 (moderate) Qualified Code(s): N18.3 - Chronic kidney disease, stage 3 (moderate) (10) Hepatitis C Current Visit: Yes Status: Chronic Assessment and plan: Monitoring. Qualifiers: Viral hepatitis chronicity: chronic Hepatic coma status: without hepatic coma Qualified Code(s): B18.2 - Chronic viral hepatitis C (11) PVD (peripheral vascular disease) Current Visit: Yes Status: Chronic Assessment and plan: Chronic condition. (12) Tobacco abuse Current Visit: Yes Status: Acute Assessment and plan: Smoking cessation counseling. Nicotine patch - Subjective Interval history: Mr. Carrera is currently admitted for acute dyspnea related to acute exac systolic CHF (new). He remains high risk due to potential for worsening cardiac status. Mr Carrera had episode of chest tightness this morning. It was relieved with 2 nitroglycerin sublingual. BP was elevated at the time. Had some associated dyspnea. No EKG changes and troponin was lower than on admission. Imdur started. No fever or chills. No cough or GI symptoms. Paperwork for emergency guardianship completed yesterday and sent to physician anesthesiologist. Awaiting results at this time. - Constitutional Vitals: Temp Pulse Resp BP Pulse Ox 98.2 F 60 18 156/84 92 05/10/17 10:19 05/10/17 10:19 05/10/17 10:19 05/10/17 10:19 05/10/17 10:19 General appearance: Present: cachectic, A&O X 2 Exam: Moderate distress at rest due to chest pressure. - Head Head exam: Present: normocephalic - Eye Eye exam: Present: EOMI, conjuntiva pink - ENT ENT exam: Present: mucous membranes moist - Respiratory Respiratory exam: Present: decreased breath sounds. Absent: rales, rhonchi, wheezes - Cardiovascular Cardiovascular exam: Present: RRR. Absent: tachycardia - GI/Abdominal GI/Abdominal exam: Present: normal bowel sounds, soft. Absent: tenderness - Extremities Exam Extremities exam: Present: warm. Absent: tenderness - Neurological Exam Neurological exam: Present: alert, no focal deficits - Skin Skin exam: Present: warm. Absent: rash Internal Medicine: Result - Labs CBC & Chem 7: 05/09/17 02:52 05/10/17 06:06 Labs: BMP 05/10/17 06:06 Sodium 136 Potassium 4.0 Chloride 93 L Carbon Dioxide 38 H BUN 29 H Creatinine 1.16 Glucose 121 H Calcium 8.6 Cardiac Enzymes 05/10/17 Range/Units 08:35 Troponin I 0.41 H* (0-0.03) ng/mL - ABG Interpretation ABG results: PT/INR, D-dimer PT 15.2 Seconds (9.4-12.1) H 05/04/17 15:57 Consult Discharge Plan - Plan Referrals: Yaneth Mcghee MD [Primary Care Provider] - 05/12/17 3:15 pm
[2017-05-10] MEDS: Isosorbide MONOnitrate (24 HR) 30 MG TAB.ER.24H PO SCH (13:02)
[2017-05-10] MEDS: *HR* Heparin 5,000 UNIT/ML VIAL IVP PRN (13:02)
[2017-05-10] MEDS: levoFLOXacin 500 MG TABLET PO SCH (13:02)
--- NOTE | 2017-05-10 16:17 | Event Note ---
Date of Encounter: 05/10/17 Time of Encounter: 16:13 - Cardiology Event Note Spoke with patient's brother at bedside and Flori, high school social science teacher. Flori states ok to obtain consent from brother since patient's next of kin is mother who has dementia. Flori states she has spoken to risk and legal who states ok to obtain consent from brother. Risks versus benefits of LHC explained to patient and family. Brother agreeable for LHC. Notified DONTAE Spence of need for brother to sign consent for LHC. Consent will be signed by brother. Cardiac diet for now, NPO after midnight. Plan for LHC tomorrow.
[2017-05-10] MEDS: Acetaminophen 325 MG TABLET PO PRN (16:58)
[2017-05-10] MEDS: Heparin 25,000 UNIT/500 ML D5W 25,000 UNIT/500 ML MLS IVC SCH (21:25)
[2017-05-11] MEDS: Heparin 25,000 UNIT/500 ML D5W 25,000 UNIT/500 ML MLS IVC SCH (07:01)
[2017-05-11] MEDS: predniSONE 20 MG TABLET PO SCH (09:13)
[2017-05-11] MEDS: Isosorbide MONOnitrate (24 HR) 30 MG TAB.ER.24H PO SCH (09:13)
[2017-05-11] MEDS: Furosemide 40 MG TABLET PO SCH (09:13)
[2017-05-11] MEDS: Aspirin Enteric Coated 81 MG Tablet PO SCH (09:13)
[2017-05-11] MEDS: Nicotine 21 MG PATCH.TD24 TD SCH (09:14)
--- NOTE | 2017-05-11 09:35 | Event Note ---
Date of Encounter: 05/11/17 Time of Encounter: 08:00 - Cardiology Event Note PLan for LHC today. Consent signed yesterday by brother risks versus benefits of LHC explained to brother. Patient denies questions this morning and is agreeable for LHC. Further recommendations pending LHC.
[2017-05-11] MEDS ORDERED: Nitroglycerin 1,000 MCG/10 ML VIAL IV ONE (11:38)
[2017-05-11] MEDS ORDERED: Verapamil 5 MG/2 ML VIAL ONE (11:38)
[2017-05-11] MEDS ORDERED: 0.9 % Sodium Chloride 1,000 ML ONE ×2 (11:38→11:47)
[2017-05-11] MEDS ORDERED: *HR* Heparin 10,000 UNIT/10 ML VIAL ONE (11:38)
[2017-05-11] MEDS ORDERED: Heparin 1,000 UNITS/500 mL NS 500 ML ONE (11:38)
[2017-05-11] MEDS ORDERED: *HR* FentaNYL (PF) 100 MCG/2 ML VIAL ONE (11:46)
[2017-05-11] MEDS ORDERED: *HR* Midazolam HCl 2 MG/2 ML VIAL ONE (11:46)
--- NOTE | 2017-05-11 12:03 | Pre-Sedation Evaluation ---
Pre-sedation evaluation - Pre-sedation checklist Date of procedure: 05/11/17 Procedure: [facility] Recent Vitals: Last Vital Signs Temp 98.1 F 05/11/17 06:57 Pulse 61 05/11/17 06:57 Resp 18 05/11/17 06:57 BP 161/83 05/11/17 06:57 Pulse Ox 97 05/11/17 06:57 H&P (including ROS) documented in medical record: Yes Previous reaction to sedatives/anesthetics: No Dietary Status: NPO after Midnight Dentition: No loose teeth or bridges ASA Classification *see protocol: CLASS II-Mild systemic disease Plan of Care: Pt appropriate candidate for procedure/moderate/conscious sedation , Risks/benefits of procedure/sedation discussed w/ patient/family
--- NOTE | 2017-05-11 12:32 | Invasive Diagnostic Lab Proc ---
Name: Yovany Carrera Date of Study: 05/11/2017 Date: 1950 Ht: 75.0in Medical Record#: [id number] Age: 66 Wt: 158.29lb Gender: Male BSA: 1.99 Order #: [id number] BMI: 19.78 Physicians Procedure Physician: Trevor Martinez MD, [facility] Referring MD: Referring MD: Staff Name Position Time In Annalise Aguilar RT (R) Scrub 11:44 AM JeffJames RT (R) Monitor 11:44 AM Vincent Sparrow RN Director [employer] 11:44 AM Chayo Schmidt RN Director [employer] 11:44 AM Indications Indication Non-Stemi Procedures Performed Procedure L HRT ARTERY/VENTRICLE ANGIO Pre-Procedure Checklist Informed consent is complete signed and on chart. H&P is on chart. ID band is on and ID verified with patient. Patient NPO for procedure The procedure was described for the patient and questions were answered. Blood Pressure: 161/83 ECG is on chart. Rhythm: NSR Plan of Care Patient will tolerate the procedure without complications. Adequate level of comfort will be maintained. Hemodynamics will remain stable Patient will recover from procedure without complications. Respiratory function will be maintained. Cardiac rhythm will remain stable. Patient temperature will be maintained. Patient and/or family have verbalized understanding of the procedure. Patient Education Chief Complaint/Reason for Test: Cardiac Cath Developmental Category: Adult (18-64 years) Developmentally Appropriate for Age: Yes Learning Barriers: None Education Needs: Procedure Education Method: Verbal Information Taught: Cardiac Cath Educational Evaluation: Able to repeat information Intravenous Access Time IV Size Location DC'd Fluid/Drip Rate Units RN 11:46 AM 20g 1 1/4" Peripheral-Lock On Arrival Lt Arm 0.9NaCl 25 ml/hr Chayo Schmidt RN 11:46 AM 20g 1 1/4" Peripheral-Lock On Arrival Rt Arm Allergies No Known Allergies Vital Signs Time BP (mmHg) HR (bpm) O2 Sat. RR (bpm) LOC 11:46 AM 161 / 83 61 97 % 18 5 = Fully awake and oriented or at pre-proc level 11:44 AM / % 4 = Oriented but drowsy 11:59 AM / % 5 = Fully awake and oriented or at pre-proc level 11:47 AM 143 / 87 60 73 % 15 11:52 AM 142 / 86 57 83 % 12 11:57 AM 147 / 82 61 90 % 14 12:02 PM 127 / 81 54 89 % 14 12:08 PM 143 / 108 60 92 % 15 12:09 PM 128 / 74 56 95 % 16 12:14 PM 131 / 71 54 93 % 13 12:19 PM 136 / 78 55 92 % 8 Procedural Medications Time Medication Dose Units Method Given By 11:52 AM Oxygen 2 L/min nasal cannula Vincent Sparrow RN 11:52 AM Oxygen 4 L/min nasal cannula Vincent Sparrow RN 12:06 PM Lidocaine 2% 0.5 ml Subcutaneous Trevor Martinez MD, FAC 12:08 PM Heparin 2000 units Nitroglycerin 200 mcg Verapamil 2.5 mg Intraarterial Trevor Martinez MD, [facility] ASA Classification: CLASS II- Mild systemic disease (i.e. well-controlled diabetes, hypertension, asthma, cigarette smoking) Keyon Score Preprocedure Postprocedure Activity 2- Moves 4 extremities sustained head lift Activity 2- Moves 4 extremities sustained head lift Circulation 2- SBP +/= 20 points of pre-anesthetic level Circulation 2- SBP +/= 20 points of pre-anesthetic level Consciousness 2- Awake and alert oriented x 3 Consciousness 2- Awake and alert oriented x 3 O2 Saturation 2- Able to maintain O2 satruation of 92% on room air O2 Saturation 1- Needs O2 inhalation to maintain O2 saturation of 90% Respiratory 2- Able to deep breathe and cough well Respiratory 2- Able to deep breathe and cough well Total Score 10 Total Score 9 Contrast Agent: Isovue Diagnostic Contrast: 59 ml Total Contrast: 59 ml Fluoro Dose: 128 mGy Procedure Log Time Note Enter By 11:40 AM CathStat 11:43 AM Pt arrived to systems testing laboratory technician 2 at 11:43 [email or web address] 11:43 AM Patient charges- Angio tray pack, Navilyst 3mm J, Pulse Oximetry and ACIST tubing and transducer [email or web address] 11:43 AM Physician arrived 11:43 [email or web address] 11:43 AM ASA Class CLASS II- Mild systemic disease (i.e. well-controlled diabetes, hypertension, asthma, cigarette smoking) [email or web address] 11:43 AM Meet and greet completed [email or web address] 11:43 AM Sign in performed according to hospital policy. [email or web address] 11:43 AM Procedure start 11:43 [email or web address] 11:44 AM Time: :43 Patient comfortable and pain free: Yes [email or web address] 11:44 AM Time: :LOC: 5 = Fully awake and oriented or at pre-proc [facility] AM Case Delayed No AM Annalise Aguilar RT (R) Position: Scrub Time in: : 11:44 AM James Aguilar RT (R) Position: Monitor Time in: [facility] 27:44 AM Vincent Sparrow RN Position: Director [employer] Time in: :44 AM Chayo Schmidt RN Position: Director [employer] Time in: [facility] 11:45 AM Hair removed from procedure site in procedure lab using clippers. Right groin prepped with Chloraprep by Betty Loya RT (R), safety strap applied then patient was draped. Skin intact. [facility]11 27:45 AM Hair removed from procedure site in procedure lab using clippers. Right wrist prepped with Chloraprep by Betty Loya (R), safety strap applied then patient was draped. Skin intact. [facility] 27:45 AM Vitals capture started with the following parameters, Patient=Adult, Interval=5 min, Initial Pdfcjcbj=217 mmHg, Deflation Rate=5 mmHg, Cuff placed on Left Arm 11:46 AM Vitals capture started with the following parameters, Patient=Adult, Interval=5 min, Initial Uzsegvdw=301 mmHg, Deflation Rate=5 mmHg, Cuff placed on Left Arm 11:47 AM HR=60 bpm, UJOJ=660/87 mmhg, SpO2=73.0 %, Resp=15 B/min, Comment=NSR 11:48 AM Clinical Presentation: Non-STEMI [facility] 11:48 AM Recorded ECG: HR=59 Condition=Condition 1 11:52 AM Time: 11:52 Oxygen on at 2 L/min per nasal cannula by Vincent Sparrow RN [place] [address] 11:52 AM Time: 11:52 Oxygen on at 4 L/min per nasal cannula by Vincent Sparrow RN [place] [address] 11:52 AM HR=57 bpm, AHID=525/86 mmhg, SpO2=83.0 %, Resp=12 B/min, Comment=NSR 11:57 AM Pressure channel 1 zeroed. 11:57 AM HR=61 bpm, BBYM=818/82 mmhg, SpO2=90.0 %, Resp=14 B/min, Comment=NSR 11:59 AM Time: 11:44LOC: 4 = Oriented but drowsy [place] [address] 11:59 AM Time: 11:44 Patient comfortable and pain free: Yes [place] [address] 12:02 PM HR=54 bpm, EYWU=380/81 mmhg, SpO2=89.0 %, Resp=14 B/min, Comment=SB 12:06 PM Time out performed according to hospital policy [place] [address] 12:06 PM Time: 12:06 0.5 ml Lidocaine 2% to right radial Subcutaneous Given by Trevor Martinez MD, [place] [address] 12:07 PM Access obtained by percutaneous puncture. 6Fr 10cm Terumo Glidesheath sheath placed in right Radial artery. [id number] [place] [address] 12:08 PM HR=60 bpm, WLOD=371/108 mmhg, SpO2=92.0 %, Resp=15 B/min, Comment=NSR 12:08 PM Time: 12:08 Patient given 2,000 units Heparin, 200 mcg Nitroglycerin, and 2.5 mg Verapamil Intraarterial by Trevor Martinez MD, [place] [address] 12:08 PM Vitals capture stopped. 12:08 PM Vitals capture started with the following parameters, Patient=Adult, Interval=5 min, Initial Ipfwkyfi=663 mmHg, Deflation Rate=5 mmHg, Cuff placed on Left Arm 12:08 PM 0.035 260cm Navilyst 3mmJ wire [id number] [place] [address] 12:08 PM 5Fr TIG catheter inserted over the wire [place] [address] 12:09 PM HR=56 bpm, JYPS=033/74 mmhg, SpO2=95.0 %, Resp=16 B/min, Comment=SB 12:10 PM LCA angiography performed in multiple views. [place] [address] 12:10 PM Recorded Pressure: Ao, HR=56, Condition=Condition 1 (Aorta) Ao 97/53/73 12:11 PM Recorded Pressure: Ao, HR=55, Condition=Condition 1 (Aorta) Ao 112/65/83 12:11 PM RCA angiography performed in multiple views. [place] [address] 12:12 PM Coronary Dominance: Left [place] [address] 12:12 PM Lesion found in Mid RCA. Pre Stenosis: 50 Pre LOU Flow: [email or web address] 12:12 PM Right Coronary, Right Posterior Descending Arteries with Right Posterolateral and Acute Marginal branches with 50 % stenosis. If graft is supplying this area, 0 % stenosis [email or web address] 12:12 PM Catheter removed [email or web address] 12:13 PM 5Fr Pigtail catheter inserted over the wire DNC [email or web address] 12:13 PM Catheter selectively placed in left ventricle [email or web address] 12:13 PM Bolus angiogram of left Ventricle complete: 12 ml/sec for a total of 30 mls [email or web address] 12:14 PM HR=54 bpm, KQXE=868/71 mmhg, SpO2=93.0 %, Resp=13 B/min, Comment=SB 12:14 PM Time: 11:59 Patient comfortable and pain free: Yes [email or web address] 12:14 PM Time: 11:59LOC: 5 = Fully awake and oriented or at pre-proc level [email or web address] 12:14 PM Pressure channel 1 zero failed. 12:14 PM Pressure channel 1 zeroed. 12:15 PM Recorded Pressure: LV, HR=54, Condition=Condition 1 (Left Ventricle) LV 133/6/12 12:15 PM Recorded Pressure: LV, Ao, HR=58, Condition=Condition 1 (Left Ventricle) LV 132/9/46, (Aorta) Ao ?/?/? 12:16 PM Catheter removed [email or web address] 12:16 PM Procedure completed at 12:16 [email or web address] 12:16 PM Arterial sheath pulled, Vasc Band closure device used and was Successful S/N. [email or web address] 12:16 PM 11 ml air in Vasc Band. [email or web address] 12:17 PM Sign out completed: Radiation Dose 127.94 mGy Fluoro Time: 2.0 Isovue 370 - 200ml contrast 59 ml given by Trevor Martinez MD, [facility]. Complications: NoneCardiac Rehab Consult needed: NoConfirmed administered medications: Yes [email or web address] 12:17 PM Post ECG Sinus Bradycardia [email or web address] 12:17 PM Post Blood Pressure 131/71 [email or web address] 12:17 PM 12:17 Post Pulses Rt Radial 2+ [email or web address] 12:18 PM Information taught Cardiac Cath and Vasc Band [email or web address] 12:18 PM Education needs Procedure, Plan of Care, and Disease Process [email or web address] 12:18 PM Learning barriers :Cognitive [email or web address] 12:18 PM Education Methods Verbal [email or web address] 12:19 PM Education evaluation Needs further instruction [email or web address] 12:19 PM HR=55 bpm, FHZM=452/78 mmhg, SpO2=92.0 %, Resp=8 B/min, Comment=SB 12:19 PM Site status No bleeding/hematoma - Rt Wrist as reported by Annalise Aguilar RT (R) at 12:19 [email or web address] 12:19 PM Delay to floor No [email or web address] 12:19 PM No Family [email or web address] 12:19 PM Complications: None [email or web address] 12:19 PM Fluoro Time: 2 [email or web address] 12:19 PM Isovue 370 - 200ml contrast 59 ml given by Trevor Martinez MD, [facility]. [email or web address] 12:19 PM Radiation Dose 127.94 mGy [email or web address] 12:25 PM Report given to tegan DIGGS Pt taken to 2A Room #37. 12:24 [email or web address] 12:27 PM Patient out of room: 12:26 [email or web address] Complications Complication None None Hemodynamics Pressures Site Systolic/A Wave Diastolic/V Wave Mean AO 97 53 73 AO 112 65 83 LV 133 6 12 LV 132 9 46 AO Post Procedure Information Blood Pressure: 131/71 mmHg Rhythm: Sinus Bradycardia Post procedural instructions were given Closure Device Time Device Success/Fail 05/11/2017 12:16:00 PM vasc band Successful Site Checks Time Location Status Staff Sheath In? Note 12:19 PM Rt Wrist No bleeding/hematoma Annalise Aguilar RT (R) Pulses Time Site Pre-Procedure Post-Procedure Note 05/11/2017 11:45:00 AM Bilateral radial 2+ 05/11/2017 10:45:00 AM Bilateral DP & PT 1+ 12:17:00 PM Rt Radial 2+ Updated by Summer Mendez RN on 05/11/2017 12:27:25 PM James Aguilar RT electronically signed on 05/11/2017 12:27:55 PM with status of Final
--- NOTE | 2017-05-11 12:33 | Electrocardiograph Report ---
[address] [place] [address] Test Date: 2017-05-10 Pat Name: Yovany Carrera Department: 112 Room: 2A Gender: M Assistant Kitchen Manager: ALONZO : 1950 Requested By: Jose Esteves Order Number: [id number] Reading MD: Trevor Martinez MD Measurements Intervals [place] Rate: 57 P: 96 [place]: 178 QRS: 64 QRSD: 84 T: 76 QT: 414 QTc: 409 Interpretive Statements SINUS BRADYCARDIA ANTEROSEPTAL MYOCARDIAL INFARCTION, OF INDETERMINATE AGE BASELINE ARTIFACT Electronically Signed On 05-11-2017 12:31:29 EDT by Trevor Martinez MD
--- NOTE | 2017-05-11 12:43 | Invasive Diagnostic Lab ---
Name: Yovany Carrera Date of Study: 05/11/2017 Date: 1950 Ht: 190.5 cm /75.0 in Medical Record#: [id number] Age: 66 Wt: 71.8 kg / 158.29 lb Account/Order#: [id number] Gender: Male BSA: 1.99 Order #: [id number] Fluoro Dose: 128 mGy BMI: 19.78 Procedure Physician: Trevor Martinez MD, FACC Referring MD: Referring MD: Procedures Performed: LEFT HEART CATH Indications: Non-Stemi Impressions: Minimal atherosclerotic coronary artery disease. The left ventricle is normal and has normal contractility EF 20% Recommendations: Optimal medical therapy of patient's disease. Aggressive risk factor modification. History/Risk Factors: COPD CKD SOB LV THROMBUS Hypertension CHF within 2 weeks Previous PCI Procedure Access obtained in the right Radial artery by percutaneous puncture Complications: None, None Contrast: Isovue 59ml Closure Device: vasc band Hemodynamics: Pressures Site Systolic/ A Wave Diastolic/ V Wave End Diastolic/ Mean HR AO 97 53 73 56 AO 112 65 83 55 LV 133 6 12 54 LV 132 9 46 58 AO 0 LV Ventriculography Ejection Method: LV Gram Ejection Fraction: 20% Wall Motion: LYLES Anterobasal Severe Hypokinesis Anterolateral Severe Hypokinesis Apical: Severe Hypokinesis Inferoapical Severe Hypokinesis Inferobasal Severe Hypokinesis Coronary Dominance: Left Lesion Findings/Interventions * Left Main Coronary Artery The LMCA is angiographically free of disease. * Left Anterior Descending The LAD has 20% mid stenosis The 1st Diagonal is angiographically free of disease. * Circumflex The Circumflex is angiographically free of disease. The 1st Marginal is angiographically free of disease. The Left PDA is angiographically free of significant disease. * Right Coronary Artery There is a 50% stenosis in the Mid RCA. The RCA is small and non-dominant. Updated by Summer Mendez RN on 05/11/2017 12:23:31 PM Trevor Martinez MD, FACC electronically signed on 05/11/2017 12:36:19 PM with status of Final
[2017-05-11] MEDS: levoFLOXacin 500 MG TABLET PO SCH (15:28)
--- NOTE | 2017-05-11 15:33 | Event Note ---
Date of Encounter: 05/11/17 Time of Encounter: 15:33 - Cardiology Event Note Patient with LHC today with 20% mid LAD, 50% mid RCA. Cardiomyopathy non- ischemic. Patient will stay on heparin drip for LV thrombus. Coumadin has been started, pharmacy to dose. Can only be on coumadin due to LV thrombus. Recommend continuing heparin drip until INR therapeutic. Goal INR 2-3. Coumadin referral faxed to cardiology office. Cardiology will manage INR while outpatient until seen by coumadin clinic. Patient on asa, statin, beta didier, loraine inhibitor, and imdur. Recommend titrating beta didier and loraine inhibitor as BP and HR will allow. Patient with no change in mental status. Patient with equal strength bilaterally. No slurred speech or facial droop noted. Cardiology will sign off and will follow in outpatient setting. Follow up set.
--- NOTE | 2017-05-11 16:05 | Internal Med Progress Note ---
Date of Encounter: 05/11/17 Time of Encounter: 10:00 - Assessment and plan (1) CHF (congestive heart failure) Current Visit: Yes Status: Acute Assessment and plan: To have LHC today to r/o ischemic cause. Bicarb elevated so diuretic decreased. Qualifiers: Congestive heart failure type: systolic Congestive heart failure chronicity : acute on chronic Qualified Code(s): I50.23 - Acute on chronic systolic ( congestive) heart failure (2) COPD (chronic obstructive pulmonary disease) Current Visit: Yes Status: Acute Assessment and plan: Overall slowly improving. Completed abx. Taper steroids. Qualifiers: COPD type: COPD with acute exacerbation Qualified Code(s): J44.1 - Chronic obstructive pulmonary disease with (acute) exacerbation (3) Community acquired pneumonia Current Visit: Yes Status: Resolved Assessment and plan: Has completed course of Levaquin IV. No further symptoms. (4) Chronic respiratory failure with hypoxia Current Visit: Yes Status: Chronic Assessment and plan: Oxygen supplementation. (5) Elevated troponin Current Visit: Yes Status: Acute Assessment and plan: For LHC today. (6) LV (left ventricular) mural thrombus Current Visit: Yes Status: Acute Assessment and plan: Currently on heparin drip. Coumadin to be started post heart cath. (7) HTN (hypertension) Current Visit: Yes Status: Chronic Assessment and plan: Seems somewhat better today. Continue current meds. Qualifiers: Hypertension type: essential hypertension Qualified Code(s): I10 - Essential (primary) hypertension (8) CKD (chronic kidney disease) Current Visit: Yes Status: Resolved Assessment and plan: Resolved. Qualifiers: Chronic kidney disease stage: stage 3 (moderate) Qualified Code(s): N18.3 - Chronic kidney disease, stage 3 (moderate) (9) Hepatitis C Current Visit: Yes Status: Chronic Assessment and plan: Monitoring. Qualifiers: Viral hepatitis chronicity: unspecified Hepatic coma status: without hepatic coma Qualified Code(s): B19.20 - Unspecified viral hepatitis C without hepatic coma (10) PVD (peripheral vascular disease) Current Visit: Yes Status: Chronic Assessment and plan: Chronic condition. (11) Tobacco abuse Current Visit: Yes Status: Acute Assessment and plan: Smoking cessation counseling. Nicotine patch - Subjective Interval history: Mr. Carrera is currently admitted for acute dyspnea related to acute exac systolic CHF (new). He remains moderate to high risk due to potential for worsening cardiac status. Mr Carrera is to have cardiac cath today. He remains on heparin drip. Denies fever or chills. No new issues overnight. No further chest pain since yesterday. - Constitutional Vitals: Temp Pulse Resp BP Pulse Ox 98.1 F 61 18 161/83 97 05/11/17 06:57 05/11/17 06:57 05/11/17 06:57 05/11/17 06:57 05/11/17 06:57 General appearance: Present: cachectic, A&O X 2 - Head Head exam: Present: normocephalic - Eye Eye exam: Present: EOMI, conjuntiva pink - ENT ENT exam: Present: mucous membranes moist - Respiratory Respiratory exam: Present: CTAB. Absent: rales, rhonchi, wheezes - Cardiovascular Cardiovascular exam: Present: RRR, systolic murmur - GI/Abdominal GI/Abdominal exam: Present: soft. Absent: tenderness - Extremities Exam Extremities exam: Present: warm. Absent: tenderness - Neurological Exam Neurological exam: Present: alert, no focal deficits - Skin Skin exam: Present: dry, warm. Absent: rash Internal Medicine: Result - Labs CBC & Chem 7: 05/09/17 02:52 05/10/17 06:06 - ABG Interpretation ABG results: PT/INR, D-dimer PT 15.2 Seconds (9.4-12.1) H 05/04/17 15:57 Consult Discharge Plan - Plan Referrals: Yaneth Mcghee MD [Primary Care Provider] - 05/18/17 2:30 pm (Please follow up as schedule...)
[2017-05-11] MEDS: *HR* Warfarin 5 MG TABLET PO SCH (17:02)
[2017-05-11] MEDS ORDERED: Warfarin perPT PO PRN (18:00)
[2017-05-11] MEDS: *HR* Heparin 5,000 UNIT/ML VIAL IVP PRN (18:26)
[2017-05-12 00:55] LABS: Hematocrit 41.1 % (37.5-50.1); Hemoglobin 12.7 g/dL (12.9-16.9); Mean Corpuscular HGB Conc 30.9 g/dL (31.6-35.5); Mean Corpuscular Hemoglobin 25.7 pg (28.0-33.3); Mean Corpuscular Volume 83.2 fL (83.0-100.0); Mean Platelet Volume 10.4 fL (9.4-12.4); Platelet Count 321 K/mcL (140-400); Red Blood Count 4.94 M/mcL (4.19-5.50); Red Cell Distribution Width 16.4 % (11.5-14.5)
[2017-05-12 01:07] LABS: BUN/Creatinine Ratio 22 (6-26); Blood Urea Nitrogen 30 mg/dL (8-26); Calcium 8.2 mg/dL (8.6-10.8); Carbon Dioxide 32 mEq/L (19-29); Chloride 96 mEq/L (98-109); Glucose 192 mg/dL (70-99); Osmolality,Calculated 293 (280-300); Potassium 4.3 mEq/L (3.5-4.5); Sodium 136 mEq/L (136-145); eGFR For African Americans > 60 (> 60); eGFR For Non-African Americans 54 (> 60)
[2017-05-12 01:13] LABS: Activated Partial Thrombo Time 93.6 Seconds (26.0-36.0)
[2017-05-12] MEDS: Heparin 25,000 UNIT/500 ML D5W 25,000 UNIT/500 ML MLS IVC SCH ×2 (04:00→19:25)
[2017-05-12 09:10] LABS: INR 1.2; Prothrombin Time 13.3 Seconds (9.4-12.1)
[2017-05-12] MEDS: predniSONE 20 MG TABLET PO SCH (09:35)
[2017-05-12] MEDS: Nicotine 21 MG PATCH.TD24 TD SCH (09:36)
[2017-05-12] MEDS: Furosemide 40 MG TABLET PO SCH (09:36)
[2017-05-12] MEDS: Isosorbide MONOnitrate (24 HR) 30 MG TAB.ER.24H PO SCH (09:36)
[2017-05-12] MEDS: Aspirin Enteric Coated 81 MG Tablet PO SCH (09:36)
[2017-05-12 10:14] LABS: Activated Partial Thrombo Time 137.7 Seconds (26.0-36.0)
[2017-05-12 10:20] LABS: Heparin anti-factor XA UFH 0.72 IU/mL (0.30-0.70)
[2017-05-12] MEDS: levoFLOXacin 500 MG TABLET PO SCH (14:48)
--- NOTE | 2017-05-12 15:18 | Internal Med Progress Note ---
Date of Encounter: 05/12/17 Time of Encounter: 10:30 - Assessment and plan (1) CHF (congestive heart failure) Current Visit: Yes Status: Acute Assessment and plan: Diuretic decreased yesterday. No acute symptoms at this time. Non ischemic in nature. Qualifiers: Congestive heart failure type: systolic Congestive heart failure chronicity : acute on chronic Qualified Code(s): I50.23 - Acute on chronic systolic ( congestive) heart failure (2) LV (left ventricular) mural thrombus Current Visit: Yes Status: Acute Assessment and plan: Currently on heparin drip. Coumadin started yesterday. Awaiting INR to elevate. (3) COPD (chronic obstructive pulmonary disease) Current Visit: Yes Status: Acute Assessment and plan: Will taper steroids as able. No acute issue currently. Qualifiers: COPD type: COPD with acute exacerbation Qualified Code(s): J44.1 - Chronic obstructive pulmonary disease with (acute) exacerbation (4) Chronic respiratory failure with hypoxia Current Visit: Yes Status: Chronic Assessment and plan: Oxygen supplementation. (5) Elevated troponin Current Visit: Yes Status: Acute Assessment and plan: For LHC today. (6) HTN (hypertension) Current Visit: Yes Status: Chronic Assessment and plan: Seems somewhat better today. Continue current meds. Qualifiers: Hypertension type: essential hypertension Qualified Code(s): I10 - Essential (primary) hypertension (7) CKD (chronic kidney disease) Current Visit: Yes Status: Resolved Assessment and plan: Resolved. Qualifiers: Chronic kidney disease stage: stage 3 (moderate) Qualified Code(s): N18.3 - Chronic kidney disease, stage 3 (moderate) (8) Hepatitis C Current Visit: Yes Status: Chronic Assessment and plan: Monitoring. Qualifiers: Viral hepatitis chronicity: unspecified Hepatic coma status: without hepatic coma Qualified Code(s): B19.20 - Unspecified viral hepatitis C without hepatic coma (9) PVD (peripheral vascular disease) Current Visit: Yes Status: Chronic Assessment and plan: Chronic condition. (10) Tobacco abuse Current Visit: Yes Status: Acute Assessment and plan: Smoking cessation counseling. Nicotine patch - Subjective Interval history: Mr. Carrera is currently admitted for acute dyspnea related to acute exac systolic CHF (new). He remains moderate to high risk due to potential for worsening cardiac status. Mr Carrera had LHC and no intervention needed. He is on heparin drip and transitioning to PO coumadin. He denies pain at this time. No fever or chills. No GI symptoms. Still has fuentes and does not have one at home. - Constitutional Vitals: Temp Pulse Resp BP Pulse Ox 97.8 F 64 16 155/73 90 05/12/17 10:39 05/12/17 10:39 05/12/17 10:39 05/12/17 10:39 05/12/17 10:39 General appearance: Present: cachectic, A&O X 2 - Head Head exam: Present: normocephalic - Eye Eye exam: Present: conjuntiva pink - ENT ENT exam: Present: mucous membranes moist - Respiratory Respiratory exam: Present: decreased breath sounds. Absent: rhonchi, wheezes - Cardiovascular Cardiovascular exam: Present: RRR. Absent: tachycardia - GI/Abdominal GI/Abdominal exam: Present: soft. Absent: tenderness - Extremities Exam Extremities exam: Present: warm. Absent: tenderness - Neurological Exam Neurological exam: Present: alert, no focal deficits - Skin Skin exam: Present: dry, warm. Absent: rash Internal Medicine: Result - Labs CBC & Chem 7: 05/12/17 00:43 05/12/17 00:43 Labs: Short CBC 05/12/17 Range/Units 00:43 WBC 7.9 (4.3-11.1) K/mcL Hgb 12.7 L (12.9-16.9) g/dL Hct 41.1 (37.5-50.1) % Plt Count 321 (140-400) K/mcL BMP 05/12/17 00:43 Sodium 136 Potassium 4.3 Chloride 96 L Carbon Dioxide 32 H BUN 30 H Creatinine 1.34 H Glucose 192 H Calcium 8.2 L - ABG Interpretation ABG results: PT/INR, D-dimer PT 13.3 Seconds (9.4-12.1) H 05/12/17 00:43 Consult Discharge Plan - Plan Referrals: Yaneth Mcghee MD [Primary Care Provider] - 05/18/17 2:30 pm (Please follow up as schedule...)
[2017-05-12] MEDS: *HR* Warfarin 5 MG TABLET PO SCH (18:16)
[2017-05-12] MEDS: *HR* HYDROcodone/Acet 5/325 mg TABLET PO PRN (20:01)
[2017-05-13 00:54] LABS: INR 1.3; Prothrombin Time 14.5 Seconds (9.4-12.1)
[2017-05-13 00:56] LABS: Activated Partial Thrombo Time 74.6 Seconds (26.0-36.0)
[2017-05-13] MEDS: Heparin 25,000 UNIT/500 ML D5W 25,000 UNIT/500 ML MLS IVC SCH ×3 (07:39→20:50)
[2017-05-13] MEDS: predniSONE 20 MG TABLET PO SCH (08:19)
[2017-05-13] MEDS: Furosemide 40 MG TABLET PO SCH (08:19)
[2017-05-13] MEDS: Isosorbide MONOnitrate (24 HR) 30 MG TAB.ER.24H PO SCH (08:20)
[2017-05-13] MEDS: Aspirin Enteric Coated 81 MG Tablet PO SCH (08:20)
[2017-05-13] MEDS: Nicotine 21 MG PATCH.TD24 TD SCH (08:23)
--- NOTE | 2017-05-13 10:11 | Internal Med Progress Note ---
<Edwardo Ruelas - Last Filed: 05/13/17 15:23> Date of Encounter: 05/13/17 Time of Encounter: 09:00 - Assessment and plan (1) CHF (congestive heart failure) Current Visit: Yes Status: Acute Assessment and plan: - Echo on 05/04/17 found LVEF 30-35% with severe global hypokinesis. - LHC on 05/11/17 found with 20% mid LAD and 50% mid RCA requiring no intervention. - Cardiology thinks it's likely secondary to non-ischemic cardiomyopathy and recommends medical management including ASA, statin, beta didier, JOHANA inhibitor , and Imdur - Clinically stable at this time. Net balance negative 26860 mL so far. - Continue diuresis with Lasix. - Strict I/O and daily weight. Qualifiers: Congestive heart failure type: systolic Congestive heart failure chronicity : acute on chronic Qualified Code(s): I50.23 - Acute on chronic systolic ( congestive) heart failure (2) LV (left ventricular) mural thrombus Current Visit: Yes Status: Acute Assessment and plan: - Echo on 05/04/17 suggests LV thrombus measuring approximately 1.0 cm x 1.0 cm in the LV apex. - Continue Coumadin with bridging heparin drip. - INR 1.3 today. Therapeutic goal is between 2.0 to 3.0 (3) HTN (hypertension) Current Visit: Yes Status: Chronic Assessment and plan: - Elevated BP as high as 191/96 this morning. - Continue Coreg, Imdur and prn hydralazine. Will increase lisinopril to 15 mg daily. - Continue to monitor. Qualifiers: Hypertension type: essential hypertension Qualified Code(s): I10 - Essential (primary) hypertension (4) COPD (chronic obstructive pulmonary disease) Current Visit: Yes Status: Acute Assessment and plan: - Finish 5-day course of prednisone today. - Continue prn bronchodilator and supplemental oxygen. Qualifiers: COPD type: emphysema Emphysema type: other Qualified Code(s): J43.8 - Other emphysema (5) Chronic respiratory failure with hypoxia Current Visit: Yes Status: Chronic Assessment and plan: - Continue supplemental oxygen as needed. (6) CKD (chronic kidney disease) Current Visit: Yes Status: Resolved Assessment and plan: - eGFR in 50s. Qualifiers: Chronic kidney disease stage: stage 3 (moderate) Qualified Code(s): N18.3 - Chronic kidney disease, stage 3 (moderate) (7) Hepatitis C Current Visit: Yes Status: Chronic Assessment and plan: - Known history of hepatitis C. Qualifiers: Viral hepatitis chronicity: unspecified Hepatic coma status: without hepatic coma Qualified Code(s): B19.20 - Unspecified viral hepatitis C without hepatic coma (8) PVD (peripheral vascular disease) Current Visit: Yes Status: Chronic (9) Tobacco abuse Current Visit: Yes Status: Acute Assessment and plan: - Smoking cessation counseling. - Continue nicotine patch. - Subjective Interval history: No significant event noted overnight. Patient was seen and examined this morning. Patient reports no complaint and denies fever, chills, shortness of breath, chest pain, nausea, vomiting, diarrhea. - Constitutional Vitals: Temp Pulse Resp BP Pulse Ox 97.8 F 62 16 187/106 94 05/13/17 07:42 05/13/17 07:42 05/13/17 07:42 05/13/17 07:42 05/13/17 07:42 General appearance: Present: cachectic, cooperative, A&O X 3 - Head Head exam: Present: atraumatic, normocephalic - Eye Eye exam: Present: EOMI, PERRL, conjuntiva pink, sclera anicteric - Neck Neck exam general surgery: Present: supple, trachea midline - Respiratory Respiratory exam: Present: CTAB. Absent: accessory muscle use, rales, rhonchi, wheezes - Cardiovascular Cardiovascular exam: Present: RRR, +S1, +S2. Absent: diastolic murmur, gallop, rubs, systolic murmur - GI/Abdominal GI/Abdominal exam: Present: normal bowel sounds, soft, no peritoneal signs. Absent: distended, tenderness - Extremities Exam Extremities exam: Present: warm, radial pulses palpable and symetrical. Absent : calf tenderness, cyanotic, pedal edema - Neurological Exam Neurological exam: Present: oriented X3, no focal deficits. Absent: pronater drift, facial droop, speech deficit - Skin Skin exam: Present: dry, intact, warm Internal Medicine: Result - Labs CBC & Chem 7: 05/12/17 00:43 05/12/17 00:43 - ABG Interpretation ABG results: PT/INR, D-dimer PT 14.5 Seconds (9.4-12.1) H 07/28/17 00:09 Consult Discharge Plan - Plan Referrals: Yaneth Mcghee MD [Primary Care Provider] - 05/18/17 2:30 pm (Please call office upon discharge to move up appt. 2 to 3 days for home health set up. per [facility]) <Cruz Barger - Last Filed: 05/13/17 16:54> Date of Encounter: 05/13/17 - Constitutional Vitals: Temp Pulse Resp BP Pulse Ox 98.1 F 61 18 173/83 93 05/13/17 15:53 05/13/17 15:53 05/13/17 15:53 05/13/17 15:53 05/13/17 15:53 Internal Medicine: Result - Labs CBC & Chem 7: 05/12/17 00:43 05/12/17 00:43 - ABG Interpretation ABG results: PT/INR, D-dimer PT 14.5 Seconds (9.4-12.1) H 05/13/17 00:09 - Attending Attestation I examined this patient and my medical decision-making was reviewed with the Resident Physician on 05/13/17. I agree with the documented findings, disposition and treatment plan as described except to the extent set forth below. Seen and examined at bedside 66 M with some chronic confusion, ? cause, non-obstructive CAD s/p LHC with no significant obstruction/intervention, CHFrEF, LV thrombus, chronic stable respiratory failure on home O2, COPD, Hep C, PVD He is seen at bedside with no nw complains, ambulatory, not in distress Physical exam is unremarkable Labs and Imaging reviewed: INR 1.3, renal function is stable Continue heparin drip, adjust warfarin, continue close monitoring, continue medical optimization, no active chest pain. Titrate medications to control blood pressure, d/c prednisone after 5 days of therapy, patient is not wheezing Rest of details as in resident's documentation
[2017-05-13] MEDS: *HR* Warfarin 5 MG TABLET PO SCH (16:17)
[2017-05-14 07:19] LABS: Activated Partial Thrombo Time 81.2 Seconds (26.0-36.0); Hematocrit 43.2 % (37.5-50.1); Hemoglobin 13.8 g/dL (12.9-16.9); Mean Corpuscular HGB Conc 31.9 g/dL (31.6-35.5); Mean Corpuscular Hemoglobin 26.1 pg (28.0-33.3); Mean Corpuscular Volume 81.8 fL (83.0-100.0); Mean Platelet Volume 10.4 fL (9.4-12.4); Platelet Count 392 K/mcL (140-400); Red Blood Count 5.28 M/mcL (4.19-5.50); Red Cell Distribution Width 16.5 % (11.5-14.5)
[2017-05-14 07:20] LABS: INR 2.2; Prothrombin Time 24.1 Seconds (9.4-12.1)
[2017-05-14 07:39] LABS: BUN/Creatinine Ratio 22 (6-26); Blood Urea Nitrogen 24 mg/dL (8-26); Calcium 8.8 mg/dL (8.6-10.8); Carbon Dioxide 30 mEq/L (19-29); Chloride 100 mEq/L (98-109); Glucose 99 mg/dL (70-99); Osmolality,Calculated 288 (280-300); Sodium 137 mEq/L (136-145); eGFR For African Americans > 60 (> 60); eGFR For Non-African Americans > 60 (> 60)
[2017-05-14] MEDS: Furosemide 40 MG TABLET PO SCH (07:58)
[2017-05-14] MEDS: Aspirin Enteric Coated 81 MG Tablet PO SCH (07:58)
[2017-05-14] MEDS: Isosorbide MONOnitrate (24 HR) 30 MG TAB.ER.24H PO SCH ×2 (07:58→10:27)
[2017-05-14] MEDS: Nicotine 21 MG PATCH.TD24 TD SCH (07:59)
[2017-05-14] MEDS ORDERED: Isosorbide MONOnitrate (24 HR) 30 MG TAB.ER.24H PO ONE (10:29)
--- NOTE | 2017-05-14 12:10 | Internal Med Progress Note ---
Date of Encounter: 05/14/17 Time of Encounter: 11:00 - Assessment and plan (1) CHF (congestive heart failure) Current Visit: Yes Status: Acute Assessment and plan: - Echo on 05/04/17 found LVEF 30-35% with severe global hypokinesis. - LHC on 05/11/17 found with 20% mid LAD and 50% mid RCA requiring no intervention. - Cardiology thinks it's likely secondary to non-ischemic cardiomyopathy and recommends medical management including ASA, statin, beta didier, JOHANA inhibitor , and Imdur - Clinically stable at this time. Net balance negative 07621 mL so far. - Continue diuresis with Lasix. - Strict I/O and daily weight. Qualifiers: Congestive heart failure type: systolic Congestive heart failure chronicity : acute on chronic Qualified Code(s): I50.23 - Acute on chronic systolic ( congestive) heart failure (2) COPD (chronic obstructive pulmonary disease) Current Visit: Yes Status: Acute Assessment and plan: Not on steroids at this time, continue to monitor Duonebs prn Qualifiers: COPD type: COPD with acute exacerbation Qualified Code(s): J44.1 - Chronic obstructive pulmonary disease with (acute) exacerbation (3) LV (left ventricular) mural thrombus Current Visit: Yes Status: Acute Assessment and plan: - Echo on 05/04/17 suggests LV thrombus measuring approximately 1.0 cm x 1.0 cm in the LV apex. - Continue Coumadin with bridging heparin drip. - INR 2.2 today. Therapeutic goal is between 2.0 to 3.0 -Obtain INR a.m, and discharge is persistent, discontinue heparin drip (4) Tobacco abuse Current Visit: Yes Status: Acute Assessment and plan: - Smoking cessation counseling. - Continue nicotine patch. (5) Chronic respiratory failure with hypoxia Current Visit: Yes Status: Chronic Assessment and plan: - Continue supplemental oxygen as needed. (6) HTN (hypertension) Current Visit: Yes Status: Chronic Assessment and plan: Uncontrolledl Patient is not compliant with diet Increase Imdur and Lisinopril Continue Coreg, Lasix Continue to monitor Educated on low sodium diet Qualifiers: Hypertension type: essential hypertension Qualified Code(s): I10 - Essential (primary) hypertension (7) Hepatitis C Current Visit: Yes Status: Chronic Assessment and plan: - Known history of hepatitis C. Qualifiers: Viral hepatitis chronicity: unspecified Hepatic coma status: without hepatic coma Qualified Code(s): B19.20 - Unspecified viral hepatitis C without hepatic coma (8) PVD (peripheral vascular disease) Current Visit: Yes Status: Chronic Assessment and plan: Chronic stable (9) CKD (chronic kidney disease) Current Visit: Yes Status: Resolved Assessment and plan: - eGFR in 50s. Qualifiers: Chronic kidney disease stage: stage 3 (moderate) Qualified Code(s): N18.3 - Chronic kidney disease, stage 3 (moderate) - Subjective Interval history: Seen and evaluated at bedside , no new complains Seeing eating a bag of chips with very high sodium content His INR today is 2.2 from 1.3 yesterday he is otherwise clinically stable His blood pressure medications have been adjusted - Constitutional Vitals: Temp Pulse Resp BP Pulse Ox 97.6 F 57 15 128/66 93 05/14/17 11:24 05/14/17 11:24 05/14/17 11:24 05/14/17 11:24 05/14/17 11:24 General appearance: Present: cachectic, cooperative, A&O X 3, pleasant - Head Head exam: Present: atraumatic, normocephalic - Eye Eye exam: Present: PERRL, conjuntiva pink, sclera anicteric Pupils: Present: PERRL - Neck Neck exam general surgery: Present: supple, trachea midline. Absent: lymphadenopathy - Respiratory Respiratory exam: Present: CTAB. Absent: accessory muscle use, rales, rhonchi, wheezes - Cardiovascular Cardiovascular exam: Present: RRR, +S1, +S2. Absent: diastolic murmur, gallop, rubs, systolic murmur - GI/Abdominal GI/Abdominal exam: Present: normal bowel sounds, soft, no peritoneal signs. Absent: distended, tenderness - Extremities Exam Extremities exam: Present: warm, radial pulses palpable and symetrical. Absent : calf tenderness, cyanotic, pedal edema - Neurological Exam Neurological exam: Present: alert, CN II-XII intact, oriented X3, no focal deficits. Absent: pronater drift, facial droop, speech deficit - Skin Skin exam: Present: dry, intact Internal Medicine: Result - Labs CBC & Chem 7: 05/14/17 06:44 05/14/17 06:44 Labs: Short CBC 05/14/17 Range/Units 06:44 WBC 10.6 (4.3-11.1) K/mcL Hgb 13.8 (12.9-16.9) g/dL Hct 43.2 (37.5-50.1) % Plt Count 392 (140-400) K/mcL BMP 05/14/17 06:44 Sodium 137 Potassium 4.0 Chloride 100 Carbon Dioxide 30 H BUN 24 Creatinine 1.09 Glucose 99 Calcium 8.8 - ABG Interpretation ABG results: PT/INR, D-dimer PT 24.1 Seconds (9.4-12.1) H D 05/14/17 06:44 Consult Discharge Plan - Plan Referrals: Yaneth Mcghee MD [Primary Care Provider] - 05/18/17 2:30 pm (HOME HEALTH NEEDS SET UP THROUGH PRIMARY CARE PROVIDER)
[2017-05-14] MEDS ORDERED: *HR* Warfarin 3 MG TABLET PO ONE (18:00)
[2017-05-14] MEDS: *HR* HYDROcodone/Acet 5/325 mg TABLET PO PRN (21:02)
[2017-05-14] MEDS: Heparin 25,000 UNIT/500 ML D5W 25,000 UNIT/500 ML MLS IVC SCH (21:41)
[2017-05-15 07:10] LABS: INR 1.8; Prothrombin Time 19.8 Seconds (9.4-12.1)
[2017-05-15 07:14] LABS: Activated Partial Thrombo Time 83.2 Seconds (26.0-36.0)
[2017-05-15 07:19] LABS: Basophils # 0.1 K/mcL (0.0-0.2); Basophils % 0.4 %; Eosinophils # 0.1 K/mcL (0.0-0.6); Eosinophils % 0.8 %; Immature Granulocytes % 1.4 % (0-4); Lymphocytes # 2.8 K/mcL (0.6-4.6); Lymphocytes % 24.3 %; Mean Corpuscular HGB Conc 31.1 g/dL (31.6-35.5); Mean Corpuscular Hemoglobin 25.6 pg (28.0-33.3); Mean Corpuscular Volume 82.3 fL (83.0-100.0); Monocytes # 1.2 K/mcL (0.0-1.3); Monocytes % 10.5 %; Neutrophils # 7.2 K/mcL (1.6-8.9); Platelet Count 468 K/mcL (140-400); Red Blood Count 5.47 M/mcL (4.19-5.50); Red Cell Distribution Width 16.6 % (11.5-14.5); Segmented Neutrophils % 62.6 %
[2017-05-15] MEDS: Isosorbide MONOnitrate (24 HR) 30 MG TAB.ER.24H PO SCH (07:59)
[2017-05-15] MEDS: Furosemide 40 MG TABLET PO SCH (07:59)
[2017-05-15] MEDS: Aspirin Enteric Coated 81 MG Tablet PO SCH (08:00)
[2017-05-15] MEDS: Nicotine 21 MG PATCH.TD24 TD SCH (08:00)
[2017-05-15] MEDS: *HR* HYDROcodone/Acet 5/325 mg TABLET PO PRN (08:04)
--- NOTE | 2017-05-15 12:34 | Internal Med Progress Note ---
Date of Encounter: 05/15/17 Time of Encounter: 10:00 - Assessment and plan (1) CHF (congestive heart failure) Current Visit: Yes Status: Acute Assessment and plan: - Echo on 05/04/17 found LVEF 30-35% with severe global hypokinesis. - LHC on 05/11/17 found with 20% mid LAD and 50% mid RCA requiring no intervention. Acute systolic CHF secondary to non-ischemic cardiomyopathy Continue medical management including ASA, statin, beta didier, JOHANA inhibitor, and Imdur Clinically stable at this time. Net balance negative -12.5L Continue diuresis with Lasix po Strict I/O and daily weight. Qualifiers: Congestive heart failure type: systolic Congestive heart failure chronicity : acute on chronic Qualified Code(s): I50.23 - Acute on chronic systolic ( congestive) heart failure (2) COPD (chronic obstructive pulmonary disease) Current Visit: Yes Status: Resolved Assessment and plan: Not on steroids at this time, continue to monitor Duonebs prn Qualifiers: COPD type: COPD with acute exacerbation Qualified Code(s): J44.1 - Chronic obstructive pulmonary disease with (acute) exacerbation (3) LV (left ventricular) mural thrombus Current Visit: Yes Status: Acute Assessment and plan: - Echo on 05/04/17 suggests LV thrombus measuring approximately 1.0 cm x 1.0 cm in the LV apex. - Continue Coumadin with bridging heparin drip. - INR 1.8 today. Therapeutic goal is between 2.0 to 3.0 -Obtain INR a.m, Patient may need to be dishcharged on lovenox and coumadin, as his INR is not therepeutic X2 In the meantime, continue current regimen (4) Tobacco abuse Current Visit: Yes Status: Chronic Assessment and plan: - Smoking cessation counseling. - Continue nicotine patch. (5) Chronic respiratory failure with hypoxia Current Visit: Yes Status: Chronic Assessment and plan: - Continue supplemental oxygen as needed. (6) HTN (hypertension) Current Visit: Yes Status: Chronic Assessment and plan: Uncontrolled Patient is not compliant with diet Continue Coreg, Laisx, Imdur and Lisinopril Continue to monitor Educated on low sodium diet Qualifiers: Hypertension type: essential hypertension Qualified Code(s): I10 - Essential (primary) hypertension (7) Hepatitis C Current Visit: Yes Status: Chronic Assessment and plan: - Known history of hepatitis C. Qualifiers: Viral hepatitis chronicity: unspecified Hepatic coma status: without hepatic coma Qualified Code(s): B19.20 - Unspecified viral hepatitis C without hepatic coma (8) PVD (peripheral vascular disease) Current Visit: Yes Status: Chronic Assessment and plan: Chronic stable (9) CKD (chronic kidney disease) Current Visit: Yes Status: Chronic Assessment and plan: - eGFR in 50s. Qualifiers: Chronic kidney disease stage: stage 3 (moderate) Qualified Code(s): N18.3 - Chronic kidney disease, stage 3 (moderate) - Subjective Interval history: Seen and evaluated at bedside , no new complains His INR today is 1.8 from 2.2 05/14/17 he is otherwise clinically stable His blood pressure medications have been adjusted - Constitutional Vitals: Temp Pulse Resp BP Pulse Ox 97.5 F L 56 13 118/69 92 05/15/17 11:02 05/15/17 11:02 05/15/17 11:02 05/15/17 11:02 05/15/17 11:02 General appearance: Present: cachectic, cooperative, A&O X 3, pleasant - Head Head exam: Present: atraumatic, normocephalic - Eye Eye exam: Present: PERRL, conjuntiva pink, sclera anicteric Pupils: Present: PERRL - Neck Neck exam general surgery: Present: supple, trachea midline. Absent: lymphadenopathy - Respiratory Respiratory exam: Present: CTAB. Absent: accessory muscle use, rales, rhonchi, wheezes - Cardiovascular Cardiovascular exam: Present: RRR, +S1, +S2. Absent: diastolic murmur, gallop, rubs, systolic murmur - GI/Abdominal GI/Abdominal exam: Present: normal bowel sounds, soft, no peritoneal signs. Absent: distended, tenderness - Extremities Exam Extremities exam: Present: warm, radial pulses palpable and symetrical. Absent : calf tenderness, cyanotic, pedal edema - Neurological Exam Neurological exam: Present: alert, CN II-XII intact, oriented X3, no focal deficits. Absent: pronater drift, facial droop, speech deficit - Skin Skin exam: Present: dry, intact Internal Medicine: Result - Labs CBC & Chem 7: 05/15/17 06:41 05/14/17 06:44 Labs: Short CBC 05/15/17 Range/Units 06:41 WBC 11.5 H (4.3-11.1) K/mcL Hgb 14.0 (12.9-16.9) g/dL Hct 45.0 (37.5-50.1) % Plt Count 468 H (140-400) K/mcL Neutrophils # 7.2 (1.6-8.9) K/mcL - ABG Interpretation ABG results: PT/INR, D-dimer PT 19.8 Seconds (9.4-12.1) H 05/15/17 06:41 Consult Discharge Plan - Plan Referrals: Yaneth Mcghee MD [Primary Care Provider] - 05/18/17 2:30 pm (HOME HEALTH NEEDS SET UP THROUGH PRIMARY CARE PROVIDER)
[2017-05-15] MEDS ORDERED: *HR* Warfarin 4 MG TABLET PO SCH (18:00)
[2017-05-15] MEDS: Heparin 25,000 UNIT/500 ML D5W 25,000 UNIT/500 ML MLS IVC SCH (23:14)
[2017-05-16 06:48] LABS: INR 1.9; Prothrombin Time 21.2 Seconds (9.4-12.1)
[2017-05-16] MEDS: Isosorbide MONOnitrate (24 HR) 30 MG TAB.ER.24H PO SCH (08:10)
[2017-05-16] MEDS: Aspirin Enteric Coated 81 MG Tablet PO SCH (08:11)
[2017-05-16] MEDS: Nicotine 21 MG PATCH.TD24 TD SCH (08:11)
[2017-05-16] MEDS: Furosemide 40 MG TABLET PO SCH (08:11)
[2017-05-16] MEDS ORDERED: Lisinopril 20 MG TABLET PO SCH (09:00)
[2017-05-16 11:14] LABS: BUN/Creatinine Ratio 18 (6-26); Blood Urea Nitrogen 24 mg/dL (8-26); Carbon Dioxide 27 mEq/L (19-29); Chloride 99 mEq/L (98-109); Glucose 208 mg/dL (70-99); Osmolality,Calculated 288 (280-300); Sodium 134 mEq/L (136-145); eGFR For African Americans > 60 (> 60); eGFR For Non-African Americans 55 (> 60)
[2017-05-16 11:19] LABS: Potassium 4.7 mEq/L (3.5-4.5)
--- NOTE | 2017-05-16 14:35 | Discharge Summary ---
Date of Encounter: 05/16/17 Time of Encounter: 14:35 - Discharge Diagnosis (1) CHF (congestive heart failure) Priority: Primary Status: Acute Comments: Patient presented with acute shortness of breath Echo on 05/04/17 found LVEF 30-35% with severe global hypokinesis. LHC on 05/11/17 found with 20% mid LAD and 50% mid RCA requiring no intervention. Acute systolic CHF secondary to non-ischemic cardiomyopathy Continue medical management including ASA, statin, beta didier, JOHANA inhibitor, and Imdur He was adequately diuressed inpatient He had a negative fluid balance >10L He is clinically stable to be discharged home on same medications Follow up with cardiology as out-patient Qualifiers: Congestive heart failure type: systolic Congestive heart failure chronicity : acute on chronic Qualified Code(s): I50.23 - Acute on chronic systolic ( congestive) heart failure (2) COPD (chronic obstructive pulmonary disease) Priority: Secondary Status: Chronic Comments: He initially had an acute exacerbation upon admission However, his respiratory status has been stable Encouraged smoking cessation Discharged with NRT Chronically on home O2, continue same Qualifiers: COPD type: COPD with acute exacerbation Qualified Code(s): J44.1 - Chronic obstructive pulmonary disease with (acute) exacerbation (3) LV (left ventricular) mural thrombus Priority: Primary Status: Acute Comments: Echo on 05/04/17 suggests LV thrombus measuring approximately 1.0 cm x 1.0 cm in the LV apex. INR today 1.9 Patient has been taught by RN how to use Lovenox injections He is being discharged on LOvenox 1.5mg/kg/day for two more days He is also being discharged on Coumadin 4mg po daily An appointment has been made with INR clinic for INR check 3-4 days from today Patient understands his need for compliance and follow up (4) Tobacco abuse Priority: Secondary Status: Chronic Comments: NRT (5) Chronic respiratory failure with hypoxia Priority: Secondary Status: Chronic (6) HTN (hypertension) Priority: Secondary Status: Chronic Comments: Continue current regimen Patient educated severally about dietary , fluid and medication compliance Qualifiers: Hypertension type: essential hypertension Qualified Code(s): I10 - Essential (primary) hypertension (7) Hepatitis C Priority: Secondary Status: Chronic Comments: Chronic, stable Qualifiers: Viral hepatitis chronicity: unspecified Hepatic coma status: without hepatic coma Qualified Code(s): B19.20 - Unspecified viral hepatitis C without hepatic coma (8) PVD (peripheral vascular disease) Priority: Secondary Status: Chronic (9) CKD (chronic kidney disease) Priority: Secondary Status: Chronic Comments: Renal function is stable Qualifiers: Chronic kidney disease stage: stage 3 (moderate) Qualified Code(s): N18.3 - Chronic kidney disease, stage 3 (moderate) (10) Community acquired pneumonia Priority: Primary Status: Resolved Comments: Completed course of treatment (11) Sepsis Priority: Primary Status: Resolved Comments: He was septic on admission, secondary to pneumonia Sepsis has since resolved Qualifiers: Sepsis type: sepsis due to unspecified organism Qualified Code(s): A41.9 - Sepsis, unspecified organism - Discharge Medications Prescriptions: Aspirin Enteric Coated [Aspirin EC] 81 mg PO DAILY #30 Atorvastatin [Lipitor] 80 mg PO HS #60 tab Carvedilol [Coreg] 12.5 mg PO BIDWM #60 tab Enoxaparin [Lovenox *PHARMACY WT BASED*] 100 mg SQ DAILY #3 syringe Furosemide [Lasix] 40 mg PO DAILY #30 tab Isosorbide MONOnitrate (24 HR) [Imdur] 60 mg PO DAILY #60 Lisinopril [Zestril] 20 mg PO DAILY #30 tab Nicotine Patch [Nicoderm] 21 mg TD DAILY #15 Warfarin [Coumadin] 4 mg PO 1800 #4 tablet Home Medications: Aspirin Enteric Coated [Aspirin EC] 81 mg PO DAILY #30 05/16/17 [Rx] Atorvastatin [Lipitor] 80 mg PO HS #60 tab 05/16/17 [Rx] Carvedilol [Coreg] 12.5 mg PO BIDWM #60 tab 05/16/17 [Rx] Enoxaparin [Lovenox *PHARMACY WT BASED*] 100 mg SQ DAILY #3 syringe 05/16/17 [Rx ] Furosemide [Lasix] 40 mg PO DAILY #30 tab 05/16/17 [Rx] Isosorbide MONOnitrate (24 HR) [Imdur] 60 mg PO DAILY #60 05/16/17 [Rx] Lisinopril [Zestril] 20 mg PO DAILY #30 tab 05/16/17 [Rx] Nicotine Patch [Nicoderm] 21 mg TD DAILY #15 05/16/17 [Rx] Warfarin [Coumadin] 4 mg PO 1800 #4 tablet 05/16/17 [Rx] Allergies/Adverse Reactions: Allergies No Known Allergies Allergy (Verified 05/04/17 09:14) Date of admission: 05/04/17 12:00 Primary care physician: Yaneth Mcghee Consults: 05/06/17 09:56 Consult to Press Operator [CONS] Routine Reason for SW Consult: Patient is confused, unable to consent for procedures. 05/12/17 10:17 Consult to Occupational Therapy [CONS] Routine Comment: Evaluate, develop and implement POC Reason for Consult: eval and tx Consult to Physical Therapy [CONS] Routine Comment: Evaluate, develop and implement POC Reason for Consult: eval and tx Discharging clinician: Cruz Barger Anticipated date of discharge: 05/16/17 - Patient Status Disposition: Home Health Service Condition: Good Functional capacity at discharge: independent ambulation Overall status at discharge: patient is back to baseline - Discharge Instructions Follow Up With: Yaneth Mcghee MD [Primary Care Provider] - 05/18/17 2:30 pm (HOME HEALTH NEEDS SET UP THROUGH PRIMARY CARE PROVIDER) Additional Instructions: Follow up in the INR clinic Follow up with PCP Follow up with Cardiology Kindly take your medications as instructed - Diet and Activity Activity: resume usual activities as tolerated Diet: low fat, low cholesterol, low salt diet Interval History: See below Hospital course: Mr. Carrera is a 66 year old male with PMH of COPD, Tobacco abuse He was admitted following episodes of acute onset SOB Admission work up revealed acute systolic CHF, with fluid overload, he also had LV thrombus on exam, sepsis secondary to community acquired pneumonia He was evaluated and co-managed with cardiology His symptoms have significantly improved He has completed his course of steroids for COPDE as well as his course of antibiotics for community acquired pneumonia he is clinically stable for discharge with follow up with Cardiology, PCP, INR clinic He verbalized understanding of plan of care Details are in each diagnosis 3 minutes spent on tobacco cessation Time spent discussing smoking cessation with patient: 3 to 10 minutes - Time Spent with Patient Total time spent providing and/or coordinating discharge services: Greater than 30 minutes (> 50 minutes spent on medication reconciliation, patient encounter, education, documentation) - Constitutional Vitals: Temp Pulse Resp BP Pulse Ox 97.5 F L 81 16 115/72 96 05/16/17 11:37 05/16/17 11:37 05/16/17 11:37 05/16/17 11:37 05/16/17 11:37 General appearance: Present: cachectic, cooperative, A&O X 3, pleasant - Head Head exam: Present: atraumatic, normocephalic - Eye Eye exam: Present: PERRL, conjuntiva pink, sclera anicteric Pupils: Present: PERRL - Neck Neck exam general surgery: Present: supple, trachea midline. Absent: lymphadenopathy - Respiratory Respiratory exam: Present: CTAB. Absent: accessory muscle use, rales, rhonchi, wheezes - Cardiovascular Cardiovascular exam: Present: RRR, +S1, +S2. Absent: diastolic murmur, gallop, rubs, systolic murmur - GI/Abdominal GI/Abdominal exam: Present: normal bowel sounds, soft, no peritoneal signs. Absent: distended, tenderness - Extremities Exam Extremities exam: Present: warm, radial pulses palpable and symetrical. Absent : calf tenderness, cyanotic, pedal edema - Neurological Exam Neurological exam: Present: alert, CN II-XII intact, oriented X3, no focal deficits. Absent: pronater drift, facial droop, speech deficit - Skin Skin exam: Present: dry, intact
[2017-05-16 16:03] VITALS: BP 139/87
== END 2017-05-16 17:51 | disposition home health service (06) | DRG 720 ==
LOC: EMEROO 09:13 → 2ANU 09:13 → SUATTDRO 12:00 → 2ANU 12:56
PROVIDERS: ADMIT Internal Medicine; ATTEND Internal Medicine

== ENCOUNTER 2017-10-03 10:42 | Inpatient (IN) ==
[2017-10-03] MEDS ORDERED: Nitroglycerin 0.4 MG TAB.SUBL SL PRN (11:19)
[2017-10-03 11:23] LABS: Basophils # 0.1 K/mcL (0.0-0.2); Basophils % 0.7 %; Eosinophils # 0.4 K/mcL (0.0-0.6); Eosinophils % 3.3 %; Hematocrit 39.5 % (37.5-50.1); Hemoglobin 12.7 g/dL (12.9-16.9); Immature Granulocytes % 0.3 % (0-4); Lymphocytes # 2.8 K/mcL (0.6-4.6); Lymphocytes % 25.9 %; Mean Corpuscular HGB Conc 32.2 g/dL (31.6-35.5); Mean Corpuscular Hemoglobin 28.4 pg (28.0-33.3); Mean Corpuscular Volume 88.4 fL (83.0-100.0); Monocytes # 1.1 K/mcL (0.0-1.3); Monocytes % 10.5 %; Neutrophils # 6.4 K/mcL (1.6-8.9); Platelet Count 425 K/mcL (140-400); Red Blood Count 4.47 M/mcL (4.19-5.50); Red Cell Distribution Width 15.5 % (11.5-14.5); Segmented Neutrophils % 59.3 %
[2017-10-03 11:51] LABS: BUN/Creatinine Ratio 18 (6-26); Blood Urea Nitrogen 21 mg/dL (8-26); Calcium 9.8 mg/dL (8.6-10.8); Carbon Dioxide 25 mEq/L (19-29); Chloride 105 mEq/L (98-109); Glucose 158 mg/dL (70-99); Osmolality,Calculated 294 (280-300); Potassium 4.3 mEq/L (3.5-4.5); Sodium 139 mEq/L (136-145); eGFR For African Americans > 60 (> 60); eGFR For Non-African Americans > 60 (> 60)
[2017-10-03] MEDS ORDERED: *HR* Labetalol 20 MG/4 ML SYRINGE IVP ONE (12:25)
[2017-10-03] MEDS ORDERED: Aspirin 81 MG TAB.CHEW PO ONE (12:30)
[2017-10-03] MEDS ORDERED: Labetalol 200 MG in D5% in Water 250 ML IVC SCH (12:30)
--- NOTE | 2017-10-03 12:38 | Emergency Department Note ---
Disposition Clinical Impression: Hypertensive emergency, Acute electrocardiogram changes, Elevated troponin Disposition: Home, Self-Care Time of Disposition: 12:39 General Adult HPI - General Chief complaint: ED Dizziness Stated complaint: dizziness Time Seen by Provider: 10/03/17 10:59 Source: patient Limitations: no limitations Nursing Notes Reviewed: Yes Vital Signs Reviewed: Yes - History of Present Illness HPI Narrative: Patient is a 66-year-old male presenting to the emergency department from his primary care physician's office for an elevated blood pressure is found to be in the 160s systolic. Patient states he has also been experiencing lightheadedness over the past 2-3 days. Upon arrival to the emergency department the patient did have a blood pressure that was elevated in the 220s/ 110s in triage. A bedside the patient denies any other complaints at this time states he does not feel feverish, no chest pain or shortness of breath, no abdominal pain, no back pain or any other concerns at this time. The patient states he is on blood pressure medication which she did take this morning he is on one medication that he takes 2 times a day but states he does not recall the name of this medication. The patient is also a vague historian and does not recall many details and answers "no" to many of my questions. Pain Scale: 3 - Related Data Home Medications Medication Instructions Recorded Confirmed Albuterol Sulfate [Albuterol 2 puff IH Q6HR PRN 10/03/17 10/03/17 Inhaler] Warfarin [Coumadin] 9 mg PO DAILY 10/03/17 10/03/17 risperiDONE [Risperdal] 1 mg PO HS 10/03/17 10/03/17 Previous Rx's Medication Instructions Recorded Aspirin Enteric Coated [Aspirin EC] 81 mg PO DAILY #30 05/16/17 Atorvastatin [Lipitor] 80 mg PO HS #60 tab 05/16/17 Carvedilol [Coreg] 12.5 mg PO BIDWM #60 tab 05/16/17 Furosemide [Lasix] 40 mg PO DAILY #30 tab 05/16/17 Isosorbide MONOnitrate (24 HR) 60 mg PO DAILY #60 05/16/17 [Imdur] Lisinopril [Zestril] 20 mg PO DAILY #30 tab 05/16/17 Allergies Allergy/AdvReac Type Severity Reaction Status Date / Time No Known Allergies Allergy Verified 10/03/17 10:46 All systems ED: reviewed and negative except as stated. Review of Systems: As Per HPI Constitutional: Reports: other (lightheadedness). Denies: fever, chills ENT ED: Denies: congestion Cardiovascular: Denies: chest pain, palpitations, dyspnea on exertion, syncope Respiratory: Denies: cough, dyspnea Gastrointestinal: Denies: abdominal pain, nausea, vomiting, diarrhea Genitourinary: Denies: urgency, frequency Musculoskeletal: Denies: back pain Neurological: Denies: headache, weakness, numbness, paresthesias Past Medical History - Past Medical History Attestation: Yes The following information was validated with the patient. Medical history: Reports: COPD Surgical history: Reports: other Psychiatric history: Reports: no psych history - Social History Smoking Status: Current every day smoker Smokeless Tobacco Status: No Alcohol use: Reports: none Drug use: Reports: none Physical Exam CONSTITUTIONAL: Well-appearing; A&O X 3, in no apparent distress HEAD: Normocephalic; atraumatic EYES: PERRL, no scleral icterus NOSE: The nose is normal in appearance without rhinorrhea NECK: No JVD or distended neck veins RESP: Normal chest excursion with respiration; breath sounds clear and equal bilaterally; no wheezes, rhonchi, or rales CARD: Regular rhythm, without murmurs, rub or gallop ABD: Non-distended; non-tender, soft, without rigidity, rebound or guarding,no pulsatile mass CHEST: No pain with palpation SKIN: Normal for age and race; warm and dry without diaphoresis ; no apparent lesions EXTREMITIES: Pulses are 2 plus and equal times 4 extremities, no peripheral edema or calf muscle pain - General Limitations: no limitations General appearance: alert, in no apparent distress Course Course Narrative: Patient had EKG done that did show ST depressions in the lateral leads which are new when compared to previous EKG. Due to these EKG changes patient's current symptoms plans to a cardiac workup of the patient will also check basic labs. Plan is to treat the patient with sublingual nitroglycerin for his EKG changes and also with hope that it will improve his blood pressure and repeat EKG can be done at that time. If nitroglycerin is not successful in lowering his blood pressure consider starting the patient on labetalol in the ER. - Reevaluation(s) Reevaluation #1: Patient's labs came back and hemoglobin was 11 however this is normal with his past labs. Patient's troponin was elevated at 0.06. Patient was given nitroglycerin which did improve his blood pressure down in the 130s and a repeat EKG was done which showed no changes from the prior. After nitroglycerin was given although he did have improvement in his blood pressure the patient's blood pressure began to climb again and therefore he is started on a beta didier drip.. patient will be admitted to the hospital for further evaluation and treatment of his hypertension. Vital Signs Temperature 98.0 F 10/03/17 10:42 Pulse Rate 86 10/03/17 10:42 Respiratory Rate 16 10/03/17 10:42 Blood Pressure 229/114 10/03/17 10:42 O2 Sat by Pulse Oximetry 96 10/03/17 10:42 Temperature 98 F 10/04/17 11:35 Pulse Rate 73 10/04/17 11:35 Respiratory Rate 16 10/04/17 11:35 Blood Pressure 129/78 10/04/17 11:35 O2 Sat by Pulse Oximetry 94 10/04/17 11:35 Oxygen Delivery Oxygen Delivery Nasal Cannula Medical Decision Making - Medical Records Medical records reviewed: Yes I reviewed the patient's medical records. - Lab Data Lab results reviewed: Yes I reviewed the patient's lab results. Result diagrams: 10/04/17 09:12 10/04/17 09:12 Lab Results 10/03/17 10/03/17 10/03/17 Range/Units 11:04 11:04 11:04 WBC 10.7 (4.3-11.1) K/mcL RBC 4.47 (4.19-5.50) M/mcL Hgb 12.7 L (12.9-16.9) g/dL Hct 39.5 (37.5-50.1) % MCV 88.4 (83.0-100.0) fL MCH 28.4 (28.0-33.3) pg MCHC 32.2 (31.6-35.5) g/dL RDW 15.5 H (11.5-14.5) % Plt Count 425 H (140-400) K/mcL MPV 9.0 L (9.4-12.4) fL Immature Gran % 0.3 (0-4) % Seg Neutrophils % 59.3 % Lymphocytes % 25.9 % Monocytes % 10.5 % Eosinophils % 3.3 % Basophils % 0.7 % Neutrophils # 6.4 (1.6-8.9) K/mcL Lymphocytes # 2.8 (0.6-4.6) K/mcL Monocytes # 1.1 (0.0-1.3) K/mcL Eosinophils # 0.4 (0.0-0.6) K/mcL Basophils # 0.1 (0.0-0.2) K/mcL PT (9.4-12.1) Seconds INR APTT (26.0-36.0) Seconds Sodium 139 (136-145) mEq/L Potassium 4.3 (3.5-4.5) mEq/L Chloride 105 (98-109) mEq/L Carbon Dioxide 25 (19-29) mEq/L BUN 21 (8-26) mg/dL Creatinine 1.17 (0.72-1.25) mg/dL Est GFR ( Amer) > 60 (> 60) Est GFR (Non-Af Amer) > 60 (> 60) BUN/Creatinine Ratio 18 (6-26) Glucose 158 H (70-99) mg/dL Calculated Osmolality 294 (280-300) Calcium 9.8 (8.6-10.8) mg/dL Troponin I 0.06 H* (0-0.03) ng/mL B-Natriuretic Peptide (0-100) pg/mL Urine Color (Yellow) Urine Clarity (Clear) Urine pH (5.0-8.0) pH Units Ur Specific [place] (1.010-1.025) Urine Protein (Neg-Trace) mg/dL Urine Glucose (UA) (Normal) mg/dL Urine Ketones (Negative) mg/dL Urine Blood (Negative) Urine Nitrite (Negative) Urine Bilirubin (Negative) Urine Urobilinogen (Normal) mg/dL Ur Leukocyte Esterase (Negative) Urine Microscopic RBC (0-3) per hpf Urine Microscopic WBC (0-3) per hpf Ur Squamous Epith Cells (None-Few) per lpf Urine Bacteria (None-Few) per hpf Hyaline Casts (None-Few) per lpf Ur Culture Indicated? (NO) 10/03/17 10/03/17 10/03/17 Range/Units 11:04 11:04 13:10 WBC (4.3-11.1) K/mcL RBC (4.19-5.50) M/mcL Hgb (12.9-16.9) g/dL Hct (37.5-50.1) % MCV (83.0-100.0) fL MCH (28.0-33.3) pg MCHC (31.6-35.5) g/dL RDW (11.5-14.5) % Plt Count (140-400) K/mcL MPV (9.4-12.4) fL Immature Gran % (0-4) % Seg Neutrophils % % Lymphocytes % % Monocytes % % Eosinophils % % Basophils % % Neutrophils # (1.6-8.9) K/mcL Lymphocytes # (0.6-4.6) K/mcL Monocytes # (0.0-1.3) K/mcL Eosinophils # (0.0-0.6) K/mcL Basophils # (0.0-0.2) K/mcL PT 20.0 H (9.4-12.1) Seconds INR 1.8 APTT 35.8 (26.0-36.0) Seconds Sodium (136-145) mEq/L Potassium (3.5-4.5) mEq/L Chloride (98-109) mEq/L Carbon Dioxide (19-29) mEq/L BUN (8-26) mg/dL Creatinine (0.72-1.25) mg/dL Est GFR ( Amer) (> 60) Est GFR (Non-Af Amer) (> 60) BUN/Creatinine Ratio (6-26) Glucose (70-99) mg/dL Calculated Osmolality (280-300) Calcium (8.6-10.8) mg/dL Troponin I (0-0.03) ng/mL B-Natriuretic Peptide 1003 H (0-100) pg/mL Urine Color Yellow (Yellow) Urine Clarity Clear (Clear) Urine pH 6.0 (5.0-8.0) pH Units Ur Specific [place] 1.026 H (1.010-1.025) Urine Protein 100 H (Neg-Trace) mg/dL Urine Glucose (UA) Normal (Normal) mg/dL Urine Ketones Negative (Negative) mg/dL Urine Blood Negative (Negative) Urine Nitrite Negative (Negative) Urine Bilirubin Negative (Negative) Urine Urobilinogen Normal (Normal) mg/dL Ur Leukocyte Esterase Negative (Negative) Urine Microscopic RBC 0-3 (0-3) per hpf Urine Microscopic WBC 0-3 (0-3) per hpf Ur Squamous Epith Cells Few (None-Few) per lpf Urine Bacteria None Seen (None-Few) per hpf Hyaline Casts None Seen (None-Few) per lpf Ur Culture Indicated? NO (NO) 10/03/17 Range/Units 15:24 WBC (4.3-11.1) K/mcL RBC (4.19-5.50) M/mcL Hgb (12.9-16.9) g/dL Hct (37.5-50.1) % MCV (83.0-100.0) fL MCH (28.0-33.3) pg MCHC (31.6-35.5) g/dL RDW (11.5-14.5) % Plt Count (140-400) K/mcL MPV (9.4-12.4) fL Immature Gran % (0-4) % Seg Neutrophils % % Lymphocytes % % Monocytes % % Eosinophils % % Basophils % % Neutrophils # (1.6-8.9) K/mcL Lymphocytes # (0.6-4.6) K/mcL Monocytes # (0.0-1.3) K/mcL Eosinophils # (0.0-0.6) K/mcL Basophils # (0.0-0.2) K/mcL PT (9.4-12.1) Seconds INR APTT (26.0-36.0) Seconds Sodium (136-145) mEq/L Potassium (3.5-4.5) mEq/L Chloride (98-109) mEq/L Carbon Dioxide (19-29) mEq/L BUN (8-26) mg/dL Creatinine (0.72-1.25) mg/dL Est GFR ( Amer) (> 60) Est GFR (Non-Af Amer) (> 60) BUN/Creatinine Ratio (6-26) Glucose (70-99) mg/dL Calculated Osmolality (280-300) Calcium (8.6-10.8) mg/dL Troponin I 0.06 H* (0-0.03) ng/mL B-Natriuretic Peptide (0-100) pg/mL Urine Color (Yellow) Urine Clarity (Clear) Urine pH (5.0-8.0) pH Units Ur Specific [place] (1.010-1.025) Urine Protein (Neg-Trace) mg/dL Urine Glucose (UA) (Normal) mg/dL Urine Ketones (Negative) mg/dL Urine Blood (Negative) Urine Nitrite (Negative) Urine Bilirubin (Negative) Urine Urobilinogen (Normal) mg/dL Ur Leukocyte Esterase (Negative) Urine Microscopic RBC (0-3) per hpf Urine Microscopic WBC (0-3) per hpf Ur Squamous Epith Cells (None-Few) per lpf Urine Bacteria (None-Few) per hpf Hyaline Casts (None-Few) per lpf Ur Culture Indicated? (NO) - Radiology Data Radiology results reviewed: Yes I reviewed the patient's radiology results. Chest X-Ray 10/03/17 10:47 IMPRESSION: COPD with no acute pneumonia. D/ / 10/03/2017 11:30:32 Renzo Page MD / maru Interpreting Provider: Renzo Page MD Head CT 10/03/17 12:31 IMPRESSION: No acute intracranial abnormality. Cerebral atrophy. Chronic small vessel ischemic changes. Remote lacunar infarcts in the basal ganglia and right thalamus. D/ / 10/03/2017 13:33:57 Roshni Inman MD / Nicky Benites Interpreting Provider: Roshni Inman MD - EKG Data EKG #1 EKG attestation: Yes I reviewed and interpreted this EKG. EKG results narrative: EKG done at 12:41 shows sinus rhythm at a rate of 81 bpm normal axis. Does show signs of LVH. Patient does have some T-wave inversions in lead V4 V5 and V6 that appear new when compared to the old EKG done on 05/10. EKG #2 EKG attestation: Yes I reviewed and interpreted this EKG. EKG results narrative: Patient's repeat EKG done at 12:41 shows sinus rhythm at a rate of 73 bpm with a normal access. [place] is 183, QRS is 84, QT is 414, QTc is 440 these are within normal limits. Patient EKG is unchanged when compared today's EKG done at 10: 52 today. Attestation Statement - Attestation Attestation: I, Jose Xiao, examined this patient and my medical decision-making was reviewed with the ACQUISITION PROFESSIONAL/PA/Advanced Practice Nurse/Resident Physician. I agree with the documented findings, disposition and treatment plan as described except to the extent set forth below. 66-year-old male presents emergency department with concerns of lightheadedness. Patient was sent to the emergency department by his primary care provider for elevated blood pressure. Patient's initial blood pressure was 229/114 taken in triage, patient's EKG showed normal sinus rhythm with rate of 81, ST depressions in the lateral leads which was new from previous EKG. Repeat EKG showed normal sinus rhythm with a rate of 73 with similar changes without further worsening. Patient had elevation of his troponin at 0.06 on initial testing. Patient was initially given nitroglycerin for treatment of his changes on EKG as well as the elevated blood pressure. This improved it significantly down 135 systolic. Patient blood pressure then started to climb and was started on labetalol with a goal of reduction by 25% SBP. Patient admitted to the hospital for further care and evaluation.
[2017-10-03] MEDS ORDERED: *HR* Labetalol 100 MG/20 ML MDV IVP ONE (12:45)
[2017-10-03 12:53] LABS: INR 1.8
[2017-10-03 12:56] LABS: Activated Partial Thrombo Time 35.8 Seconds (26.0-36.0)
[2017-10-03] MEDS ORDERED: amLODIPine 5 MG TABLET PO ONE (13:09)
[2017-10-03 13:23] LABS: Bilirubin,Urine Negative (Negative); Blood,Urine Negative (Negative); Clarity,Urine Clear (Clear); Color,Urine Yellow (Yellow); Glucose,Urine (UA) Normal (Normal); Ketones,Urine Negative (Negative); Leukocyte Esterase,Urine Negative (Negative); Nitrite,Urine Negative (Negative); Protein,Urine 100 mg/dL (Neg-Trace); Specific Gravity,Urine 1.026 (1.010-1.025); Urobilinogen,Urine Normal (Normal)
[2017-10-03 13:25] LABS: Bacteria,Urine None Seen per hpf (None-Few); Hyaline Casts,Urine None Seen per lpf (None-Few); RBC,Urine 0-3 per hpf (0-3); Squamous Epithelial Cell,Urine Few per lpf (None-Few); WBC,Urine 0-3 per hpf (0-3)
--- NOTE | 2017-10-03 13:43 | Internal Med History&Physical ---
Date of Encounter: 10/03/17 Time of Encounter: 13:39 Assessment and Plan (1) Hypertensive emergency Current visit: Yes Status: Acute Hypertensive urgency just on labetalol drip. Continue and resume home medication as well Patient says he has been compliant with his home medication (2) CHF (congestive heart failure) Current visit: No Status: Acute Acute on chronic systolic heart failure worsened by hypertensive urgency Qualifiers: Congestive heart failure type: systolic Congestive heart failure chronicity : acute on chronic Qualified Code(s): I50.23 - Acute on chronic systolic ( congestive) heart failure (3) CKD (chronic kidney disease) Current visit: No Status: Chronic Chronic Qualifiers: Chronic kidney disease stage: stage 2 (mild) Qualified Code(s): N18.2 - Chronic kidney disease, stage 2 (mild) (4) COPD (chronic obstructive pulmonary disease) Current visit: No Status: Acute Qualifiers: COPD type: emphysema Emphysema type: other Qualified Code(s): J43.8 - Other emphysema (5) Hepatitis C Current visit: No Status: Chronic chronic no new issues Qualifiers: Viral hepatitis chronicity: unspecified Hepatic coma status: without hepatic coma Qualified Code(s): B19.20 - Unspecified viral hepatitis C without hepatic coma (6) PVD (peripheral vascular disease) Current visit: No Status: Chronic chronic (7) Tobacco abuse Current visit: No Status: Chronic chronic (8) COPD (chronic obstructive pulmonary disease) Current visit: No Status: Chronic with acute wheezing Qualifiers: COPD type: COPD with acute exacerbation Qualified Code(s): J44.1 - Chronic obstructive pulmonary disease with (acute) exacerbation Internal Medicine - H&P: HPI Chief complaint: light headed x 2 days Admitted From: Emergency Dept Plans for Post Hospital Care: Home History of present illness: Mr. 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 Patient will be admitted to [facility] on labetalol drip to the blood pressure under control Past Med Surg Social Fam HX - Past Medical History Medical history: cardiomyopathy, COPD, hyperlipidemia, hypertension, peripheral artery disease Psychiatric history: no psych history - Past Surgical History Surgical History: other - Social History Smoking Status: Current every day smoker Smokeless Tobacco Status: No Alcohol use: none Drug use: none Internal Medicine - H&P: Meds Aspirin Enteric Coated [Aspirin EC] 81 mg PO DAILY #30 05/16/17 [Rx] Atorvastatin [Lipitor] 80 mg PO HS #60 tab 05/16/17 [Rx] Carvedilol [Coreg] 12.5 mg PO BIDWM #60 tab 05/16/17 [Rx] Furosemide [Lasix] 40 mg PO DAILY #30 tab 05/16/17 [Rx] Isosorbide MONOnitrate (24 HR) [Imdur] 60 mg PO DAILY #60 05/16/17 [Rx] Lisinopril [Zestril] 20 mg PO DAILY #30 tab 05/16/17 [Rx] Albuterol Sulfate [Albuterol Inhaler] 2 puff IH Q6HR PRN 10/03/17 [History] Warfarin [Coumadin] 9 mg PO DAILY 10/03/17 [History] risperiDONE [Risperdal] 1 mg PO HS 10/03/17 [History] 3 Allergy/AdvReac Type Severity Reaction Status Date / Time No Known Allergies Allergy Verified 10/03/17 10:46 All Systems PM: A 10-system review of systems was performed and is negative for pertinent findings except as documented above in the HPI. - Constitutional Constitutional: no chills, no fever(s), no night sweats - EENT Eyes: no change in vision, no discharge, no pain, no photophobia Ears: no ear discharge, no ear pain, no tinnitus Nose, mouth and throat: no dysphagia, no nasal discharge, no neck pain, no sore throat - Cardiovascular Cardiovascular ROS IM: chest pain, dyspnea on exertion - Respiratory Respiratory: dyspnea on exertion - Gastrointestinal Gastrointestinal: no abdominal pain, no diarrhea, no hematemesis, no hematochezia, no melena, no nausea, no vomiting - Musculoskeletal Musculoskeletal ROS IM: no numbness, no tingling - Integumentary Integumentary IM: no rash, no unusual bruising - Constitutional Vitals: Temp Pulse Resp BP Pulse Ox 98.0 F 66 16 199/116 93 10/03/17 10:42 10/03/17 13:36 10/03/17 13:36 10/03/17 13:36 10/03/17 13:36 - Head Head exam: Present: atraumatic, normocephalic - Neck Neck exam general surgery: Present: supple, trachea midline. Absent: lymphadenopathy - Respiratory Respiratory exam: Present: rhonchi, wheezes - Cardiovascular Cardiovascular exam: Present: RRR, +S3, systolic murmur - GI/Abdominal GI/Abdominal exam: Present: normal bowel sounds, soft, no peritoneal signs. Absent: distended, tenderness - Extremities Exam Extremities exam: Present: warm, radial pulses palpable and symmetrical. Absent : calf tenderness, cyanotic, pedal edema Internal Med - H&P Results - Labs CBC & Chem 7: 10/03/17 11:04 10/03/17 11:04 Labs: Short CBC 10/03/17 Range/Units 11:04 WBC 10.7 (4.3-11.1) K/mcL Hgb 12.7 L (12.9-16.9) g/dL Hct 39.5 (37.5-50.1) % Plt Count 425 H (140-400) K/mcL Neutrophils # 6.4 (1.6-8.9) K/mcL BMP 10/03/17 11:04 Sodium 139 Potassium 4.3 Chloride 105 Carbon Dioxide 25 BUN 21 Creatinine 1.17 Glucose 158 H Calcium 9.8 Cardiac Enzymes 10/03/17 Range/Units 11:04 Troponin I 0.06 H* (0-0.03) ng/mL Urine 10/03/17 Range/Units 13:10 Urine Color Yellow (Yellow) Urine Clarity Clear (Clear) Urine pH 6.0 (5.0-8.0) pH Units Ur Specific [place] 1.026 H (1.010-1.025) Urine Protein 100 H (Neg-Trace) mg/dL Urine Glucose (UA) Normal (Normal) mg/dL - Impressions ITS Impressions Chest X-Ray 10/03/17 10:47 IMPRESSION: COPD with no acute pneumonia. D/ / 10/03/2017 11:30:32 Renzo Page MD / maru Interpreting Provider: Renzo Page MD Head CT 10/03/17 12:31 IMPRESSION: No acute intracranial abnormality. Cerebral atrophy. Chronic small vessel ischemic changes. Remote lacunar infarcts in the basal ganglia and right thalamus. D/ / Roshni Inman MD / Roshni Inman MD Interpreting Provider: Roshni Inman MD
[2017-10-03] MEDS ORDERED: Naloxone 0.4 MG/ML INJ IVP PRN (13:53)
[2017-10-03] MEDS ORDERED: Ondansetron 4 MG/2 ML VIAL IVP PRN (13:53)
[2017-10-03] MEDS ORDERED: Mag Hydrox/Al Hydrox/Simeth 30 ML UDC PO PRN (13:53)
[2017-10-03] MEDS ORDERED: Ipratropium/Albuterol Neb 3 ML IH PRN (14:00)
[2017-10-03] MEDS: Ipratropium/Albuterol Neb 3 ML IH SCH ×3 (15:53→23:19)
--- NOTE | 2017-10-03 17:22 | Electrocardiograph Report ---
[place] [id number] Test Date: 2017-10-03 Pat Name: Yovany Carrera Department: 102 Room: 2NE21 Gender: M [employer]: [facility] : 1950 Requested By: Damion Samaniego Order Number: [id number] Reading MD: Amy Bingham Measurements Intervals [place] Rate: 81 P: 96 IA: 184 QRS: 28 QRSD: 89 T: 132 QT: 385 QTc: 423 Interpretive Statements SINUS RHYTHM WITH SUPRAVENTRICULAR PREMATURE COMPLEXES ST DEVIATION AND MODERATE T-WAVE ABNORMALITY, CONSIDER LATERAL ISCHEMIA Electronically Signed On 10-03-2017 17:21:15 EST by Amy Bingham
[2017-10-03] MEDS: Furosemide 40 MG/4 ML VIAL IVP SCH (18:43)
[2017-10-03] MEDS: risperiDONE 1 MG TABLET PO SCH (22:07)
[2017-10-03] MEDS: Nicotine 21 MG PATCH.TD24 TD SCH (22:07)
[2017-10-04 03:05] LABS: Chol/HDL Ratio 2.7 (0-4.9)
[2017-10-04] MEDS: Ipratropium/Albuterol Neb 3 ML IH SCH ×6 (03:50→23:28)
[2017-10-04] MEDS: *HR* Enoxaparin 40 MG/0.4 ML SYRINGE SQ SCH (06:30)
[2017-10-04] MEDS: Furosemide 40 MG/4 ML VIAL IVP SCH ×2 (07:48→17:19)
[2017-10-04] MEDS: Aspirin Enteric Coated 81 MG Tablet PO SCH (07:50)
[2017-10-04] MEDS: Lisinopril 20 MG TABLET PO SCH (07:50)
[2017-10-04] MEDS: Nicotine 21 MG PATCH.TD24 TD SCH (07:51)
[2017-10-04] MEDS: Isosorbide MONOnitrate (24 HR) 60 MG TAB.ER.24H PO SCH (07:51)
[2017-10-04 09:33] LABS: Basophils # 0.1 K/mcL (0.0-0.2); Basophils % 0.5 %; Eosinophils # 0.3 K/mcL (0.0-0.6); Eosinophils % 2.9 %; Hematocrit 41.4 % (37.5-50.1); Hemoglobin 13.2 g/dL (12.9-16.9); Immature Granulocytes % 0.5 % (0-4); Lymphocytes # 2.7 K/mcL (0.6-4.6); Lymphocytes % 24.7 %; Mean Corpuscular HGB Conc 31.9 g/dL (31.6-35.5); Mean Corpuscular Hemoglobin 27.9 pg (28.0-33.3); Mean Corpuscular Volume 87.5 fL (83.0-100.0); Mean Platelet Volume 8.9 fL (9.4-12.4); Monocytes % 8.7 %; Neutrophils # 6.9 K/mcL (1.6-8.9); Platelet Count 450 K/mcL (140-400); Red Blood Count 4.73 M/mcL (4.19-5.50); Red Cell Distribution Width 15.5 % (11.5-14.5); Segmented Neutrophils % 62.7 %
[2017-10-04 09:43] LABS: BUN/Creatinine Ratio 16 (6-26); Blood Urea Nitrogen 19 mg/dL (8-26); Calcium 10.2 mg/dL (8.6-10.8); Carbon Dioxide 26 mEq/L (19-29); Chloride 100 mEq/L (98-109); Glucose 165 mg/dL (70-99); Osmolality,Calculated 294 (280-300); Potassium 3.6 mEq/L (3.5-4.5); Sodium 139 mEq/L (136-145); eGFR For African Americans > 60 (> 60); eGFR For Non-African Americans > 60 (> 60)
[2017-10-04 12:23] LABS: INR 1.5; Prothrombin Time 16.2 Seconds (9.4-12.1)
--- NOTE | 2017-10-04 14:58 | Discharge Summary ---
Date of Encounter: 10/04/17 Time of Encounter: 10:00 - Discharge Medications Home Medications: Aspirin Enteric Coated [Aspirin EC] 81 mg PO DAILY #30 05/16/17 [Rx] Atorvastatin [Lipitor] 80 mg PO HS #60 tab 05/16/17 [Rx] Carvedilol [Coreg] 12.5 mg PO BIDWM #60 tab 05/16/17 [Rx] Furosemide [Lasix] 40 mg PO DAILY #30 tab 05/16/17 [Rx] Isosorbide MONOnitrate (24 HR) [Imdur] 60 mg PO DAILY #60 05/16/17 [Rx] Lisinopril [Zestril] 20 mg PO DAILY #30 tab 05/16/17 [Rx] Albuterol Sulfate [Albuterol Inhaler] 2 puff IH Q6HR PRN 10/03/17 [History] Warfarin [Coumadin] 9 mg PO DAILY 10/03/17 [History] risperiDONE [Risperdal] 1 mg PO HS 10/03/17 [History] Allergies/Adverse Reactions: 3 Allergy/AdvReac Type Severity Reaction Status Date / Time No Known Allergies Allergy Verified 10/03/17 10:46 Date of admission: 10/03/17 18:53 Primary care physician: Yaneth Mcghee - Patient Status Disposition: Transfer SNF Condition: Good - Discharge Instructions Forms: ED Satisfaction Letter Hospital course: Patient is a 66 year old male with past medical history significant for congestive heart failure, severe LV dysfunction EF 20%, 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 Patient reported symptoms of lightheadedness for the past 2 days prior to admission and blood pressure was about 160 at doctor's office and then sent to emergency room. In the emergency room, blood pressure was over 200 started on labetalol drip. Patient was admitted to the medical surgical floor for hypertension emergency. During patients hospital stay, patients blood pressures were controlled after restarting home medications. Patient suspected of being noncompliant with home medications resulting in elevated blood pressures. Social work was consulted and patient will be discharged to [facility] for respired care, as his online trader currently not available. - Time Spent with Patient Total time spent providing and/or coordinating discharge services: Less than 30 minutes - Constitutional Vitals: Temp Pulse Resp BP Pulse Ox 98 F 78 16 118/70 96 10/04/17 11:35 10/04/17 13:26 10/04/17 13:26 10/04/17 13:26 10/04/17 13:26 General appearance: Present: A&O X 3 - Respiratory Respiratory exam: Present: CTAB. Absent: accessory muscle use, rales, rhonchi, wheezes - Cardiovascular Cardiovascular exam: Present: RRR, +S1, +S2. Absent: diastolic murmur, gallop, rubs, systolic murmur - VTE Documentation of Mechanical Device: Intermittent pneumatic compression device
--- NOTE | 2017-10-04 14:58 | Physician Discharge Referral ---
ExtendedCare Referral Info Institutional Level of Care: Skilled - Transfer Medications Home Medications: Aspirin Enteric Coated [Aspirin EC] 81 mg PO DAILY #30 05/16/17 [Rx] Atorvastatin [Lipitor] 80 mg PO HS #60 tab 05/16/17 [Rx] Carvedilol [Coreg] 12.5 mg PO BIDWM #60 tab 05/16/17 [Rx] Furosemide [Lasix] 40 mg PO DAILY #30 tab 05/16/17 [Rx] Isosorbide MONOnitrate (24 HR) [Imdur] 60 mg PO DAILY #60 05/16/17 [Rx] Lisinopril [Zestril] 20 mg PO DAILY #30 tab 05/16/17 [Rx] Albuterol Sulfate [Albuterol Inhaler] 2 puff IH Q6HR PRN 10/03/17 [History] Warfarin [Coumadin] 9 mg PO DAILY 10/03/17 [History] risperiDONE [Risperdal] 1 mg PO HS 10/03/17 [History] Allergies/Adverse Reactions: 3 Allergy/AdvReac Type Severity Reaction Status Date / Time No Known Allergies Allergy Verified 10/03/17 10:46 - Respiratory Orders Smoking Cessation: Smoking cessation has been advised. For more information, call the [place] Tobacco Quit Line at 9-573-QFZD-NOW. CERTIFICATION: I certify that the transfer of the above named patient to an Extended Care Facility is necessary for the continuing treatment of the diagnosis listed. The above information is true and accurate reflection of patient's current condition. Confidential - Redisclosure prohibited without a patient's written consent.
--- NOTE | 2017-10-04 16:19 | Electrocardiograph Report ---
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
[2017-10-04] MEDS: *HR* Warfarin 3 MG TABLET PO SCH (17:19)
[2017-10-04] MEDS ORDERED: Warfarin perPT PO PRN (18:00)
[2017-10-04] MEDS: risperiDONE 1 MG TABLET PO SCH (22:10)
[2017-10-05 03:59] LABS: INR 1.3; Prothrombin Time 14.5 Seconds (9.4-12.1)
[2017-10-05] MEDS: Ipratropium/Albuterol Neb 3 ML IH SCH ×5 (04:39→21:27)
[2017-10-05] MEDS: *HR* Enoxaparin 40 MG/0.4 ML SYRINGE SQ SCH (06:08)
[2017-10-05] MEDS: Lisinopril 20 MG TABLET PO SCH (09:37)
[2017-10-05] MEDS: Furosemide 40 MG/4 ML VIAL IVP SCH (09:37)
[2017-10-05] MEDS: Aspirin Enteric Coated 81 MG Tablet PO SCH (09:37)
[2017-10-05] MEDS: Isosorbide MONOnitrate (24 HR) 60 MG TAB.ER.24H PO SCH (09:37)
[2017-10-05] MEDS: Nicotine 21 MG PATCH.TD24 TD SCH (09:37)
[2017-10-05] MEDS: *HR* Warfarin 3 MG TABLET PO SCH (17:53)
--- NOTE | 2017-10-05 18:56 | Event Note ---
Date of Encounter: 10/05/17 Time of Encounter: 10:00 Patient is discharged awaiting placement
[2017-10-05] MEDS: risperiDONE 1 MG TABLET PO SCH (21:11)
[2017-10-06] MEDS: Ipratropium/Albuterol Neb 3 ML IH SCH ×5 (00:35→15:39)
[2017-10-06 03:46] LABS: INR 1.5; Prothrombin Time 16.4 Seconds (9.4-12.1)
[2017-10-06] MEDS: *HR* Enoxaparin 40 MG/0.4 ML SYRINGE SQ SCH (05:52)
[2017-10-06] MEDS: Isosorbide MONOnitrate (24 HR) 60 MG TAB.ER.24H PO SCH (08:10)
[2017-10-06] MEDS: Aspirin Enteric Coated 81 MG Tablet PO SCH (08:10)
[2017-10-06] MEDS: Lisinopril 20 MG TABLET PO SCH (08:10)
[2017-10-06] MEDS: Nicotine 21 MG PATCH.TD24 TD SCH (08:11)
[2017-10-06] MEDS ORDERED: Furosemide 40 MG TABLET PO SCH (09:00)
[2017-10-06 11:38] VITALS: BP 138/81
--- NOTE | 2017-10-06 16:47 | Physician Discharge Referral ---
Home Health/Hosp Referral Info Transfer to: Home Health - Respiratory Orders Smoking Cessation: Smoking cessation has been advised. For more information, call the [place] Tobacco Quit Line at 3-941-COIC-NOW. - Services Needed Following services are medically necessary services: Nursing (daily nursing for medication administration) - Transfer Medications Home Medications: Aspirin Enteric Coated [Aspirin EC] 81 mg PO DAILY #30 05/16/17 [Rx] Atorvastatin [Lipitor] 80 mg PO HS #60 tab 05/16/17 [Rx] Carvedilol [Coreg] 12.5 mg PO BIDWM #60 tab 05/16/17 [Rx] Furosemide [Lasix] 40 mg PO DAILY #30 tab 05/16/17 [Rx] Isosorbide MONOnitrate (24 HR) [Imdur] 60 mg PO DAILY #60 05/16/17 [Rx] Lisinopril [Zestril] 20 mg PO DAILY #30 tab 05/16/17 [Rx] Albuterol Sulfate [Albuterol Inhaler] 2 puff IH Q6HR PRN 10/03/17 [History] Warfarin [Coumadin] 9 mg PO DAILY 10/03/17 [History] risperiDONE [Risperdal] 1 mg PO HS 10/03/17 [History] Allergies/Adverse Reactions: 3 Allergy/AdvReac Type Severity Reaction Status Date / Time No Known Allergies Allergy Verified 10/03/17 10:46 Certification: Further, I certify that my clinical findings support that this patient is homebound (i.e. absences from home require considerable and taxing effort and are for medical reasons or sabianist services or infrequently or short duration when for other reasons) because: Homebound Reason: Altered mental status requiring supervision when leaving home Attestation: My signature below is to certify that this patient is under my care and that I, or nurse practitioner, or a physician's assistant professor of music working with me, has a face-to -face encounter with this patient.
--- NOTE | 2017-10-06 16:48 | Event Note ---
Date of Encounter: 10/06/17 Time of Encounter: 11:00 Patient will be discharged home today with home health
== END 2017-10-06 16:05 | DRG 199 ==
LOC: 2NENU 10:42 → EMEROO 10:42 → 2NENU 16:40 → SUATTDRO 18:53
PROVIDERS: ADMIT Internal Medicine Cardiovascular Disease; ATTEND Hospitalist

== ENCOUNTER 2021-06-18 14:21 | Observation (INO) ==
[2021-06-18 15:28] LABS: Basophils # 0.1 K/mcL (0.0-0.2); Basophils % 0.9 %; Eosinophils # 0.3 K/mcL (0.0-0.6); Eosinophils % 2.3 %; Hematocrit 49.2 % (37.5-50.1); Hemoglobin 16.1 g/dL (12.9-16.9); Immature Granulocytes % 0.7 % (0-4); Lymphocytes % 23.2 %; Mean Corpuscular HGB Conc 32.7 g/dL (31.6-35.5); Mean Corpuscular Hemoglobin 30.1 pg (28.0-33.3); Mean Corpuscular Volume 92.1 fL (83.0-100.0); Mean Platelet Volume 9.6 fL (9.4-12.4); Monocytes # 1.3 K/mcL (0.0-1.3); Monocytes % 9.8 %; Neutrophils # 8.1 K/mcL (1.6-8.9); Platelet Count 427 K/mcL (140-400); Red Blood Count 5.34 M/mcL (4.19-5.50); Red Cell Distribution Width 14.6 % (11.5-14.5); Segmented Neutrophils % 63.1 %; White Blood Count 12.8 K/mcL (4.3-11.1)
[2021-06-18 15:46] LABS: BUN/Creatinine Ratio 20 (6-26); Blood Urea Nitrogen 26 mg/dL (8-23); Calcium 9.9 mg/dL (8.6-10.3); Carbon Dioxide 31 mEq/L (23-29); Chloride 100 mEq/L (98-107); Glucose 112 mg/dL (70-105); Osmolality,Calculated 292 (280-300); Potassium 4.7 mEq/L (3.5-5.1); Sodium 138 mEq/L (136-145); eGFR For African Americans > 60 (> 60); eGFR For Non-African Americans 53 (> 60)
[2021-06-18 15:47] LABS: Troponin I 0.03 ng/mL (< 0.04)
[2021-06-18 15:50] LABS: INR 1.9; Prothrombin Time 21.3 Seconds (9.4-12.1)
[2021-06-18] MEDS ORDERED: Ipratropium/Albuterol Neb 3 ML IH ONE (17:01)
[2021-06-18] MEDS ORDERED: Acetaminophen 325 MG TABLET PO PRN (20:41)
[2021-06-18] MEDS ORDERED: Ondansetron 4 MG/2 ML VIAL IVP PRN (20:41)
[2021-06-18] MEDS ORDERED: Naloxone 0.4 MG/ML INJ IVP PRN (20:41)
[2021-06-18] MEDS ORDERED: Ipratropium/Albuterol Neb 3 ML IH PRN (21:26)
[2021-06-18] MEDS ORDERED: levoFLOXacin 750 MG/150 ML 750 MG/150 ML BAG IVPB SCH (21:30)
[2021-06-18] MEDS ORDERED: *HR* Warfarin 3 MG TABLET PO ONE (22:00)
[2021-06-19 05:28] LABS: Basophils # 0.1 K/mcL (0.0-0.2); Basophils % 0.6 %; Eosinophils # 0.3 K/mcL (0.0-0.6); Eosinophils % 2.6 %; Hematocrit 44.9 % (37.5-50.1); Immature Granulocytes % 0.6 % (0-4); Lymphocytes # 3.4 K/mcL (0.6-4.6); Lymphocytes % 26.5 %; Mean Corpuscular HGB Conc 32.3 g/dL (31.6-35.5); Mean Corpuscular Hemoglobin 29.7 pg (28.0-33.3); Mean Platelet Volume 9.8 fL (9.4-12.4); Monocytes # 1.4 K/mcL (0.0-1.3); Monocytes % 11.2 %; Neutrophils # 7.4 K/mcL (1.6-8.9); Platelet Count 404 K/mcL (140-400); Red Blood Count 4.88 M/mcL (4.19-5.50); Red Cell Distribution Width 14.7 % (11.5-14.5); Segmented Neutrophils % 58.5 %; White Blood Count 12.7 K/mcL (4.3-11.1)
[2021-06-19 05:30] LABS: Hemoglobin 14.5 g/dL (12.9-16.9)
[2021-06-19 05:40] LABS: INR 2.1; Prothrombin Time 23.4 Seconds (9.4-12.1)
[2021-06-19 05:48] LABS: BUN/Creatinine Ratio 23 (6-26); Blood Urea Nitrogen 27 mg/dL (8-23); Calcium 9.3 mg/dL (8.6-10.3); Carbon Dioxide 31 mEq/L (23-29); Chloride 101 mEq/L (98-107); Glucose 87 mg/dL (70-105); Magnesium 1.8 mg/dL (1.6-2.6); Osmolality,Calculated 290 (280-300); Potassium 4.5 mEq/L (3.5-5.1); Sodium 138 mEq/L (136-145); eGFR For African Americans > 60 (> 60); eGFR For Non-African Americans > 60 (> 60)
[2021-06-19] MEDS: Ipratropium/Albuterol Neb 3 ML IH SCH ×3 (11:11→20:37)
[2021-06-19] MEDS: predniSONE 20 MG TABLET PO SCH (12:33)
[2021-06-19] MEDS ORDERED: Perflutren Lipid Microsphere 1.3 ML in 0.9 % Sodium Chloride 8.7 ML IVP PRN (14:38)
[2021-06-19] MEDS: Aspirin Enteric Coated 81 MG Tablet PO SCH (16:27)
[2021-06-19] MEDS ORDERED: Warfarin perPT PO PRN (18:00)
[2021-06-19] MEDS ORDERED: *HR* Warfarin 3 MG TABLET PO ONE (18:00)
[2021-06-19] MEDS: risperiDONE 1 MG TABLET PO SCH (22:14)
[2021-06-19] MEDS: carvediloL 6.25 MG TABLET PO SCH (22:14)
[2021-06-20] MEDS: Ipratropium/Albuterol Neb 3 ML IH SCH ×6 (01:05→19:50)
[2021-06-20 07:29] LABS: Hematocrit 48.3 % (37.5-50.1); Hemoglobin 15.4 g/dL (12.9-16.9); Mean Corpuscular HGB Conc 31.9 g/dL (31.6-35.5); Mean Corpuscular Hemoglobin 29.1 pg (28.0-33.3); Mean Corpuscular Volume 91.1 fL (83.0-100.0); Mean Platelet Volume 10.1 fL (9.4-12.4); Platelet Count 406 K/mcL (140-400); Red Cell Distribution Width 14.6 % (11.5-14.5); White Blood Count 13.5 K/mcL (4.3-11.1)
[2021-06-20 07:42] LABS: Alanine Aminotransferase 23 Units/L (7-52); Albumin/Globulin Ratio 1.5 (1.1-2.2); Alkaline Phosphatase 106 Units/L (34-104); Aspartate Amino Transferase 13 Units/L (13-39); Bilirubin,Total 0.5 mg/dL (0.3-1.0); Blood Urea Nitrogen 22 mg/dL (8-23); Calcium 9.7 mg/dL (8.6-10.3); Carbon Dioxide 27 mEq/L (23-29); Chloride 103 mEq/L (98-107); Globulin 2.6 g/dL (2.4-3.5); Glucose 126 mg/dL (70-105); Osmolality,Calculated 287 (280-300); Potassium 4.5 mEq/L (3.5-5.1); Sodium 136 mEq/L (136-145); Total Protein 6.6 g/dL (6.4-8.9)
[2021-06-20] MEDS: Furosemide 20 MG TABLET PO SCH (07:57)
[2021-06-20] MEDS: Isosorbide MONOnitrate (24 HR) 60 MG TAB.ER.24H PO SCH (07:57)
[2021-06-20] MEDS: Aspirin Enteric Coated 81 MG Tablet PO SCH (07:57)
[2021-06-20] MEDS: lisinopriL 20 MG TABLET PO SCH (07:57)
[2021-06-20] MEDS: DilTIAZem CD (24hr) 240 MG CAP.ER.24H PO SCH (07:57)
[2021-06-20] MEDS: Azithromycin 500 MG in 0.9 % Sodium Chloride 250 ML IVPB SCH (07:58)
[2021-06-20] MEDS: predniSONE 20 MG TABLET PO SCH (07:58)
[2021-06-20] MEDS: carvediloL 6.25 MG TABLET PO SCH ×2 (07:58→18:29)
[2021-06-20 08:04] LABS: INR 1.9; Prothrombin Time 21.4 Seconds (9.4-12.1)
[2021-06-20 08:50] LABS: BUN/Creatinine Ratio 21 (6-26); eGFR For African Americans > 60 (> 60); eGFR For Non-African Americans > 60 (> 60)
[2021-06-20] MEDS ORDERED: *HR* Warfarin 3 MG TABLET PO ONE (18:00)
[2021-06-20] MEDS: risperiDONE 1 MG TABLET PO SCH (22:21)
[2021-06-21] MEDS: Ipratropium/Albuterol Neb 3 ML IH SCH ×7 (00:12→23:57)
[2021-06-21 08:07] LABS: Hematocrit 42.1 % (37.5-50.1); Mean Corpuscular HGB Conc 32.5 g/dL (31.6-35.5); Mean Corpuscular Hemoglobin 30.1 pg (28.0-33.3); Mean Corpuscular Volume 92.5 fL (83.0-100.0); Mean Platelet Volume 9.5 fL (9.4-12.4); Platelet Count 389 K/mcL (140-400); Red Blood Count 4.55 M/mcL (4.19-5.50); Red Cell Distribution Width 14.9 % (11.5-14.5); White Blood Count 17.7 K/mcL (4.3-11.1)
[2021-06-21 08:08] LABS: Hemoglobin 13.7 g/dL (12.9-16.9)
[2021-06-21 08:23] LABS: INR 3.5
[2021-06-21 08:25] LABS: Alanine Aminotransferase 22 Units/L (7-52); Albumin 3.4 g/dL (3.5-5.7); Albumin/Globulin Ratio 1.5 (1.1-2.2); Alkaline Phosphatase 83 Units/L (34-104); Aspartate Amino Transferase 12 Units/L (13-39); BUN/Creatinine Ratio 25 (6-26); Bilirubin,Total 0.3 mg/dL (0.3-1.0); Blood Urea Nitrogen 35 mg/dL (8-23); Calcium 8.8 mg/dL (8.6-10.3); Carbon Dioxide 30 mEq/L (23-29); Chloride 104 mEq/L (98-107); Globulin 2.3 g/dL (2.4-3.5); Glucose 94 mg/dL (70-105); Osmolality,Calculated 294 (280-300); Potassium 4.5 mEq/L (3.5-5.1); Sodium 138 mEq/L (136-145); Total Protein 5.7 g/dL (6.4-8.9); eGFR For African Americans > 60 (> 60); eGFR For Non-African Americans 51 (> 60)
[2021-06-21] MEDS: predniSONE 20 MG TABLET PO SCH (09:01)
[2021-06-21] MEDS: Azithromycin 500 MG in 0.9 % Sodium Chloride 250 ML IVPB SCH (09:01)
[2021-06-21] MEDS: DilTIAZem CD (24hr) 240 MG CAP.ER.24H PO SCH (09:01)
[2021-06-21] MEDS: Isosorbide MONOnitrate (24 HR) 60 MG TAB.ER.24H PO SCH (09:01)
[2021-06-21] MEDS: Furosemide 20 MG TABLET PO SCH (09:02)
[2021-06-21] MEDS: Aspirin Enteric Coated 81 MG Tablet PO SCH (09:02)
[2021-06-21] MEDS: lisinopriL 20 MG TABLET PO SCH (09:10)
[2021-06-21] MEDS: carvediloL 6.25 MG TABLET PO SCH (09:10)
[2021-06-21] MEDS: risperiDONE 1 MG TABLET PO SCH (20:11)
[2021-06-22] MEDS: Ipratropium/Albuterol Neb 3 ML IH SCH ×4 (03:34→15:23)
[2021-06-22 06:53] VITALS: TEMP 97.7
[2021-06-22] MEDS: Isosorbide MONOnitrate (24 HR) 60 MG TAB.ER.24H PO SCH (07:57)
[2021-06-22] MEDS: predniSONE 20 MG TABLET PO SCH (07:57)
[2021-06-22] MEDS: Azithromycin 500 MG in 0.9 % Sodium Chloride 250 ML IVPB SCH (07:58)
[2021-06-22] MEDS: Aspirin Enteric Coated 81 MG Tablet PO SCH (08:02)
[2021-06-22] MEDS ORDERED: DilTIAZem CD (24hr) 120 MG CAP.ER.24H PO SCH (09:00)
[2021-06-22 09:39] LABS: Hematocrit 49.9 % (37.5-50.1); Mean Corpuscular HGB Conc 31.7 g/dL (31.6-35.5); Mean Corpuscular Hemoglobin 29.5 pg (28.0-33.3); Mean Corpuscular Volume 93.1 fL (83.0-100.0); Mean Platelet Volume 9.9 fL (9.4-12.4); Platelet Count 431 K/mcL (140-400); Red Blood Count 5.36 M/mcL (4.19-5.50); Red Cell Distribution Width 14.8 % (11.5-14.5); White Blood Count 15.3 K/mcL (4.3-11.1)
[2021-06-22 09:46] LABS: Hemoglobin 15.8 g/dL (12.9-16.9); INR 3.2; Prothrombin Time 35.9 Seconds (9.4-12.1)
[2021-06-22 09:59] LABS: Alanine Aminotransferase 24 Units/L (7-52); Albumin/Globulin Ratio 1.3 (1.1-2.2); Alkaline Phosphatase 100 Units/L (34-104); Aspartate Amino Transferase 15 Units/L (13-39); BUN/Creatinine Ratio 21 (6-26); Bilirubin,Total 0.5 mg/dL (0.3-1.0); Blood Urea Nitrogen 25 mg/dL (8-23); Calcium 9.7 mg/dL (8.6-10.3); Carbon Dioxide 26 mEq/L (23-29); Chloride 101 mEq/L (98-107); Glucose 182 mg/dL (70-105); Osmolality,Calculated 293 (280-300); Potassium 4.3 mEq/L (3.5-5.1); Sodium 137 mEq/L (136-145); eGFR For African Americans > 60 (> 60); eGFR For Non-African Americans 60 (> 60)
[2021-06-22 12:29] VITALS: O2SAT 94
[2021-06-22 14:02] VITALS: BP 127/55; PULSE 78
== END 2021-06-22 16:24 | disposition home or self-care (01) ==
LOC: CDU 14:21 → EMEROOARM 14:21 → SUATTDRO 20:55 → CDU 21:10
PROVIDERS: ADMIT Pharmacist; ATTEND Registered Nurse